=== PATIENT | male | born 1965 | race Hispanic/Latino ===

== ENCOUNTER 2017-07-08 01:25 | Emergency (ER) | payer OTHER, MEDICAID ==
[2017-07-08] MEDS ORDERED: MAG HYDROX/AL HYDROX/SIMETH ES 30 ML SUSP UDCUP ONE (02:01)
[2017-07-08] MEDS ORDERED: LIDOCAINE HCL 2% VISCOUS 15 ML UDCUP ONE (02:01)
[2017-07-08] MEDS ORDERED: ONDANSETRON HCL 4 MG/2 ML VIAL ONE (02:02)
[2017-07-08] MEDS ORDERED: ASPIRIN 325 MG TABLET ONE (02:02)
[2017-07-08] MEDS ORDERED: ACETAMINOPHEN-CODEINE ELIXIR 5 ML UDCUP ONE (02:02)
[2017-07-08 02:25] LABS: BASOPHILS % (AUTO) 0.9 % (0.0-5.0); EOSINOPHILS % (AUTO) 6.7 % (0.0-8.0); LYMPHOCYTES % (AUTO) 20.1 % (21.0-51.0); MEAN CORPUSCULAR HEMOGLOBIN 30.5 pg (27.0-33.0); MEAN CORPUSCULAR HGB CONC 34.4 g/dL (32.0-36.0); MEAN CORPUSCULAR VOLUME 88.6 fL (79-99); MONOCYTES % (AUTO) 7.4 % (3.0-13.0); NEUTROPHILS % (AUTO) 64.9 % (40.0-77.0); PLATELET COUNT (AUTO) 269 K/uL (130-400); RED BLOOD CELL COUNT(AUTO) 5.42 MIL/uL (4.50-6.20); RED CELL DISTRIBUTION WIDTH 13.7 % (11.0-15.5); WHITE BLOOD COUNT (AUTO) 8.5 K/uL (4.8-10.8)
[2017-07-08 02:44] LABS: CREATININE 1.1 mg/dL (0.5-1.5); POTASSIUM 3.7 mmol/L (3.5-5.1)
[2017-07-08 02:48] LABS: ALBUMIN 3.1 g/dL (3.5-5.0); BILIRUBIN,TOTAL 0.5 mg/dL (0.2-1.0); TOTAL PROTEIN, SERUM 6.8 g/dL (6.0-8.3)
== END 2017-07-08 03:06 | disposition home or self-care (01) ==
LOC: EDH 01:25
DX: K58.9 Irritable bowel syndrome, unspecified (principal); G89.29 Other chronic pain; R10.9 Unspecified abdominal pain; E78.5 Hyperlipidemia, unspecified; F43.10 Post-traumatic stress disorder, unspecified
CPT/HCPCS: 36415; 80053; 83690; 84484; 85025; 99284; J2405

== ENCOUNTER 2017-07-09 19:18 | Inpatient (IN) | payer MEDICAID, OTHER ==
[~2017-07-09] VITALS: Ht 172.7 cm; Wt 104.3 kg
[2017-07-09] MEDS ORDERED: ONDANSETRON HCL 4 MG/2 ML VIAL ONE (19:41)
[2017-07-09] MEDS ORDERED: SODIUM CHLORIDE 0.9% 1000ML 1,000 ML IV ONE (19:41)
[2017-07-09] MEDS ORDERED: MORPHINE SULFATE 8 MG/ML VIAL ONE ×2 (19:42→23:32)
[2017-07-09 19:50] LABS: BASOPHILS % (AUTO) 0.8 % (0.0-5.0); EOSINOPHILS % (AUTO) 3.2 % (0.0-8.0); HEMATOCRIT 46.3 % (42-54); LYMPHOCYTES % (AUTO) 14.2 % (21.0-51.0); MEAN CORPUSCULAR HEMOGLOBIN 30.8 pg (27.0-33.0); MEAN CORPUSCULAR HGB CONC 34.3 g/dL (32.0-36.0); MEAN CORPUSCULAR VOLUME 89.6 fL (79-99); MONOCYTES % (AUTO) 8.1 % (3.0-13.0); NEUTROPHILS % (AUTO) 73.7 % (40.0-77.0); PLATELET COUNT (AUTO) 250 K/uL (130-400); RED BLOOD CELL COUNT(AUTO) 5.17 MIL/uL (4.50-6.20); RED CELL DISTRIBUTION WIDTH 13.2 % (11.0-15.5); WHITE BLOOD COUNT (AUTO) 7.5 K/uL (4.8-10.8)
[2017-07-09 19:51] LABS: BILIRUBIN,URINE Negative (NEGATIVE); COLOR,URINE Yellow (YELLOW); GLUCOSE, URINE (UA) Negative (NEGATIVE); KETONES,URINE Negative (NEGATIVE); LEUKOCYTE ESTERASE ,URINE Negative (NEGATIVE); NITRATE,URINE Negative (NEGATIVE); OCCULT BLOOD,URINE Negative (NEGATIVE); PH,URINE 7.5 (5.0-8.0); PROTEIN,URINE Negative (NEGATIVE)
[2017-07-09 19:52] LABS: APPEARANCE,URINE CLEAR (CLEAR)
[2017-07-09 20:13] LABS: ALBUMIN 3.1 g/dL (3.5-5.0); BILIRUBIN,TOTAL 0.4 mg/dL (0.2-1.0); TOTAL PROTEIN, SERUM 6.7 g/dL (6.0-8.3)
[2017-07-09] MEDS ORDERED: IOPAMIDOL-370 75 ML VIAL IV ONE ×2 (22:50→22:57)
[2017-07-10] MEDS ORDERED: CEFTRIAXONE SODIUM 1 GM ONE (00:39)
[2017-07-10 01:15] VITALS: BP 138/83
[2017-07-10] MEDS ORDERED: SODIUM CHLORIDE 0.9% 1000ML 1,000 ML IV ONE (01:33)
[2017-07-10] MEDS: MORPHINE SULFATE 2 MG/ML 1ML SYG IVP PRN ×4 (01:36→22:58)
[2017-07-10 04:00] VITALS: BP_SYST 109; BP_SYST 134; BP_DIAS 53; BP_DIAS 75
[2017-07-10 04:56] LABS: BASOPHILS % (AUTO) 1.1 % (0.0-5.0); EOSINOPHILS % (AUTO) 4.1 % (0.0-8.0); HEMATOCRIT 43.4 % (42-54); LYMPHOCYTES % (AUTO) 18.9 % (21.0-51.0); MEAN CORPUSCULAR HEMOGLOBIN 30.8 pg (27.0-33.0); MEAN CORPUSCULAR HGB CONC 34.1 g/dL (32.0-36.0); MEAN CORPUSCULAR VOLUME 90.4 fL (79-99); MONOCYTES % (AUTO) 9.1 % (3.0-13.0); NEUTROPHILS % (AUTO) 66.8 % (40.0-77.0); PLATELET COUNT (AUTO) 228 K/uL (130-400); RED CELL DISTRIBUTION WIDTH 13.7 % (11.0-15.5); WHITE BLOOD COUNT (AUTO) 6.6 K/uL (4.8-10.8)
[2017-07-10 05:03] LABS: CREATININE 0.9 mg/dL (0.5-1.5); POTASSIUM 4.1 mmol/L (3.5-5.1)
[2017-07-10] MEDS ORDERED: MORPHINE SULFATE 4 MG/1ML SYG IV PRN (07:30)
[2017-07-10 07:35] VITALS: BP 135/80
[2017-07-10] MEDS: FAMOTIDINE/PF 20 MG/2 ML VIAL IV SCH ×2 (08:23→19:34)
[2017-07-10] MEDS: LEVOFLOXACIN 500 MG/D5W 100 ML 100 ML IV SCH (08:25)
[2017-07-10] MEDS: SODIUM CHLORIDE 0.9% 1000ML 1,000 ML IV SCH ×2 (08:25→17:18)
[2017-07-10] MEDS: ENOXAPARIN SODIUM 40 MG/0.4 ML SYRINGE SQ SCH (08:25)
[2017-07-10 11:21] VITALS: BP 123/81
[2017-07-10] MEDS ORDERED: LEVO500T2 PO (14:07)
[2017-07-10] MEDS: ACETAMINOPHEN-CODEINE 300/30MG TAB PO PRN (15:30)
[2017-07-10] MEDS ORDERED: ONDANSETRON HCL 4 MG/2 ML VIAL ONE (16:45)
[2017-07-10] MEDS ORDERED: ONDANSETRON HCL 4 MG/2 ML VIAL IVP PRN (18:30)
[2017-07-10] MEDS ORDERED: ONDANSETRON HCL 4 MG/2 ML VIAL IVP ONE (19:00)
[2017-07-10 19:40] VITALS: BP 127/77
[2017-07-10] MEDS: CEFTRIAXONE SODIUM 1 GM IVP SCH (22:57)
[2017-07-10 23:30] VITALS: BP 140/86
[2017-07-11 04:00] VITALS: BP 122/88
[2017-07-11] MEDS: SODIUM CHLORIDE 0.9% 1000ML 1,000 ML IV SCH ×3 (04:43→22:48)
[2017-07-11 07:00] VITALS: BP 142/87
[2017-07-11] MEDS: LEVOFLOXACIN 500 MG/D5W 100 ML 100 ML IV SCH (07:30)
[2017-07-11] MEDS: ENOXAPARIN SODIUM 40 MG/0.4 ML SYRINGE SQ SCH (09:00)
[2017-07-11] MEDS: FAMOTIDINE/PF 20 MG/2 ML VIAL IV SCH ×2 (09:00→20:46)
[2017-07-11 10:50] VITALS: BP 132/81
[2017-07-11 12:19] LABS: HEMATOCRIT 45.9 % (42-54); MEAN CORPUSCULAR HEMOGLOBIN 30.9 pg (27.0-33.0); MEAN CORPUSCULAR HGB CONC 34.4 g/dL (32.0-36.0); MEAN CORPUSCULAR VOLUME 89.9 fL (79-99); PLATELET COUNT (AUTO) 227 K/uL (130-400); RED CELL DISTRIBUTION WIDTH 13.2 % (11.0-15.5)
[2017-07-11 12:41] LABS: POTASSIUM 3.6 mmol/L (3.5-5.1)
[2017-07-11 14:56] LABS: ALBUMIN 2.9 g/dL (3.5-5.0); BILIRUBIN,DIRECT 0.1 mg/dL (0.0-0.3); BILIRUBIN,TOTAL 0.5 mg/dL (0.2-1.0); TOTAL PROTEIN, SERUM 6.5 g/dL (6.0-8.3)
[2017-07-11 15:22] VITALS: BP 146/94
[2017-07-11] MEDS: MORPHINE SULFATE 2 MG/ML 1ML SYG IVP PRN ×2 (18:55→22:48)
[2017-07-11 19:41] VITALS: BP 143/84
[2017-07-11] MEDS: CEFTRIAXONE SODIUM 1 GM IVP SCH (22:48)
[2017-07-12] VITALS (22 sets, daily range): BP systolic 105–138; BP diastolic 64–92
[2017-07-12 05:33] LABS: BASOPHILS % (AUTO) 1.2 % (0.0-5.0); HEMATOCRIT 43.9 % (42-54); MEAN CORPUSCULAR HEMOGLOBIN 30.8 pg (27.0-33.0); MEAN CORPUSCULAR HGB CONC 34.5 g/dL (32.0-36.0); MEAN CORPUSCULAR VOLUME 89.2 fL (79-99); MONOCYTES % (AUTO) 11.2 % (3.0-13.0); NEUTROPHILS % (AUTO) 51.6 % (40.0-77.0); NUCLEATED RED BLOOD CELLS 0.1 % (0.0-0.19); PLATELET COUNT (AUTO) 228 K/uL (130-400); RED BLOOD CELL COUNT(AUTO) 4.92 MIL/uL (4.50-6.20); RED CELL DISTRIBUTION WIDTH 13.4 % (11.0-15.5); WHITE BLOOD COUNT (AUTO) 5.1 K/uL (4.8-10.8)
[2017-07-12] MEDS: MORPHINE SULFATE 2 MG/ML 1ML SYG IVP PRN ×2 (06:01→21:20)
[2017-07-12] MEDS: LEVOFLOXACIN 500 MG/D5W 100 ML 100 ML IV SCH (06:01)
[2017-07-12 06:03] LABS: ALBUMIN 2.7 g/dL (3.5-5.0); BILIRUBIN,TOTAL 0.5 mg/dL (0.2-1.0); POTASSIUM 3.6 mmol/L (3.5-5.1); TOTAL PROTEIN, SERUM 6.2 g/dL (6.0-8.3)
[2017-07-12] MEDS: FAMOTIDINE/PF 20 MG/2 ML VIAL IV SCH ×2 (08:41→19:44)
[2017-07-12] MEDS: ENOXAPARIN SODIUM 40 MG/0.4 ML SYRINGE SQ SCH (08:42)
[2017-07-12] MEDS ORDERED: ONDANSETRON HCL 4 MG/2 ML VIAL ONE (08:59)
[2017-07-12] MEDS ORDERED: DEXAMETHASONE SOD PHOSPHATE 10MG/ML 1ML VIAL ONE ×2 (08:59→13:07)
[2017-07-12] MEDS ORDERED: GLYCOPYRROLATE 0.2 MG/ML 5 ML VIAL ONE ×2 (09:00→13:08)
[2017-07-12] MEDS ORDERED: SUCCINYLCHOLINE 200MG/10ML SYR ONE ×2 (09:00→13:07)
[2017-07-12] MEDS ORDERED: LIDOCAINE PF 2% 5ML ABBOJECT ONE (09:00)
[2017-07-12] MEDS ORDERED: MIDAZOLAM HCL 1 MG/ML 2ML VIAL ONE (09:32)
[2017-07-12] MEDS ORDERED: PROPOFOL 10 MG/ML 20ML VIAL IV ONE (09:33)
[2017-07-12] MEDS ORDERED: FENTANYL CITRATE PF 50 MCG/1 ML 2ML VIAL ONE ×2 (09:33→12:51)
[2017-07-12] MEDS ORDERED: HEPARIN SODIUM 1000UNIT/ML 10ML VIAL ONE (11:10)
[2017-07-12] MEDS ORDERED: ROCURONIUM BROMIDE 10MG/1ML 5ML VL ONE (13:06)
[2017-07-12] MEDS ORDERED: METOCLOPRAMIDE 10 MG/2 ML VIAL ONE (13:07)
[2017-07-12] MEDS ORDERED: PHENYLEPHRINE HCL 10 MG/ML 1ML VIAL IV ONE (13:08)
[2017-07-12] MEDS ORDERED: LIDOCAINE HCL 2% JELLY 5 ML ONE (13:08)
[2017-07-12] MEDS ORDERED: ROPIVACAINE 0.5% 5MG/ML 30ML IJ ONE (13:08)
[2017-07-12] MEDS ORDERED: ESMOLOL HCL 10 MG/ML 10 ML VIAL ONE (13:10)
[2017-07-12] MEDS ORDERED: CALDOLOR 800MG+NS 250ML 250 ML IV ONE (13:26)
[2017-07-12] MEDS ORDERED: SODIUM CHLORIDE 0.9% 1000ML 1,000 ML IV SCH (13:44)
[2017-07-12] MEDS ORDERED: MEPERIDINE-PF 50 MG/ML SYG ONE (14:13)
[2017-07-13] MEDS: CEFTRIAXONE SODIUM 1 GM IVP SCH (00:35)
[2017-07-13 00:47] VITALS: BP 140/88
[2017-07-13 04:19] VITALS: BP 109/72
[2017-07-13] MEDS: LEVOFLOXACIN 500 MG/D5W 100 ML 100 ML IV SCH (05:39)
[2017-07-13] MEDS: ACETAMINOPHEN-CODEINE 300/30MG TAB PO PRN (05:40)
[2017-07-13 08:08] VITALS: BP 134/91
[2017-07-13] MEDS: FAMOTIDINE/PF 20 MG/2 ML VIAL IV SCH (09:06)
[2017-07-13] MEDS: ENOXAPARIN SODIUM 40 MG/0.4 ML SYRINGE SQ SCH (09:08)
[2017-07-13 11:39] VITALS: BP 117/80
== END 2017-07-13 14:20 | disposition home or self-care (01) | DRG 419 ==
LOC: EDH 19:18 → INTOOBSV 07-10 00:29 → 4AH 07-10 00:29 → OBSVTOIN 07-10 00:29
PROVIDERS: ADMIT Family Medicine; ATTEND Family Medicine
PROC: 0FT44ZZ Resection of Gallbladder, Percutaneous Endoscopic Approach (ICD-10-PCS; principal; 2017-07-12 12:40)
DX: K80.62 Calculus of gallbladder and bile duct with acute cholecystitis without obstruction (principal); E66.9 Obesity, unspecified; Z68.35 Body mass index [BMI] 35.0-35.9, adult; E78.5 Hyperlipidemia, unspecified; F43.10 Post-traumatic stress disorder, unspecified
CPT/HCPCS: 36415; 74177; 76705; 80048; 80053; 80076; 81003; 82150; 82550; 83690; 84484; 85025; 85027; 88304; 93005; A4218; J0330; J0696; J1100; J1644; J1650; J1741; J1956; J2001; J2175; J2250; J2270; J2370; J2405; J2704; J2765; J2795; J3010; J3490; J7030; Q9967

== ENCOUNTER 2017-10-18 21:19 | Emergency (ER) | payer MEDICAID, OTHER ==
[~2017-10-18 21:19] MED LIST: LEVO500T2 PO
[2017-10-18] MEDS ORDERED: ASPIRIN 325 MG TABLET ONE (21:28)
[2017-10-18 21:40] LABS: BASOPHILS % (AUTO) 0.9 % (0.0-5.0); EOSINOPHILS % (AUTO) 6.2 % (0.0-8.0); HEMATOCRIT 46.2 % (42-54); MEAN CORPUSCULAR HEMOGLOBIN 31.4 pg (27.0-33.0); MEAN CORPUSCULAR HGB CONC 34.7 g/dL (32.0-36.0); MEAN CORPUSCULAR VOLUME 90.7 fL (79-99); MONOCYTES % (AUTO) 9.4 % (3.0-13.0); NEUTROPHILS % (AUTO) 53.5 % (40.0-77.0); PLATELET COUNT (AUTO) 201 K/uL (130-400); RED BLOOD CELL COUNT(AUTO) 5.09 MIL/uL (4.50-6.20); RED CELL DISTRIBUTION WIDTH 14.1 % (11.0-15.5); WHITE BLOOD COUNT (AUTO) 6.4 K/uL (4.8-10.8)
[2017-10-18 21:51] LABS: INR 0.89 (0.85-1.15); PARTIAL THROMBOPLASTIN TIME 28.9 SEC (26.3-35.5); PROTHROMBIN TIME 9.4 SEC (9.6-11.6)
[2017-10-18 21:52] LABS: CREATININE 1.1 mg/dL (0.5-1.5); POTASSIUM 3.7 mmol/L (3.5-5.1)
[2017-10-18 22:10] LABS: BILIRUBIN,TOTAL 0.3 mg/dL (0.2-1.0); TOTAL PROTEIN, SERUM 6.3 g/dL (6.0-8.3)
[2017-10-18 22:28] LABS: AMPHET/METH SCREEN,URINE NEGATIVE (NEGATIVE); BARBITURATE SCREEN, URINE NEGATIVE (NEGATIVE); BENZODIAZEPINES SCREEN,URINE NEGATIVE (NEGATIVE); CANNABINOID SCREEN,URINE NEGATIVE (NEGATIVE); COCAINE SCREEN,URINE NEGATIVE (NEGATIVE); OPIATE SCREEN,URINE NEGATIVE (NEGATIVE); PHENCYCLIDINE SCREEN,URINE NEGATIVE (NEGATIVE)
== END 2017-10-19 00:39 | disposition home or self-care (01) ==
LOC: EDH 21:19
DX: R07.9 Chest pain, unspecified (principal); E78.5 Hyperlipidemia, unspecified; F43.10 Post-traumatic stress disorder, unspecified; Z90.49 Acquired absence of other specified parts of digestive tract; Z87.891 Personal history of nicotine dependence
CPT/HCPCS: 36415; 71045; 80053; 80305; 82550; 82553; 83874; 84484; 85025; 85610; 85730; 93005; 94761

== ENCOUNTER 2018-04-25 20:20 | Emergency (ER) | payer OTHER ==
[2018-04-25] MEDS ORDERED: ASPIRIN 325 MG TABLET ONE (20:34)
[2018-04-25] MEDS ORDERED: LORAZEPAM 2 MG/ML 1 ML VIAL ONE (20:37)
[2018-04-25 20:45] LABS: BASOPHILS % (AUTO) 1.1 % (0.0-5.0); HEMATOCRIT 48.6 % (42-54); LYMPHOCYTES % (AUTO) 27.7 % (21.0-51.0); MEAN CORPUSCULAR HEMOGLOBIN 30.7 pg (27.0-33.0); MEAN CORPUSCULAR HGB CONC 33.7 g/dL (32.0-36.0); MEAN CORPUSCULAR VOLUME 91.1 fL (79-99); NEUTROPHILS % (AUTO) 57.2 % (40.0-77.0); NUCLEATED RED BLOOD CELLS 0.2 % (0.0-0.19); PLATELET COUNT (AUTO) 167 K/uL (130-400); RED BLOOD CELL COUNT(AUTO) 5.33 MIL/uL (4.50-6.20); RED CELL DISTRIBUTION WIDTH 13.2 % (11.0-15.5); WHITE BLOOD COUNT (AUTO) 6.8 K/uL (4.8-10.8)
[2018-04-25 20:53] LABS: CREATININE 1.3 mg/dL (0.5-1.5); INR 0.91 (0.85-1.15); PARTIAL THROMBOPLASTIN TIME 29.5 SEC (26.3-35.5); POTASSIUM 3.8 mmol/L (3.5-5.1); PROTHROMBIN TIME 9.6 SEC (9.6-11.6)
[2018-04-25 21:02] LABS: ALBUMIN 2.9 g/dL (3.5-5.0); BILIRUBIN,TOTAL 0.3 mg/dL (0.2-1.0)
== END 2018-04-26 00:24 | disposition home or self-care (01) ==
LOC: EDH 20:22
DX: F41.1 Generalized anxiety disorder (principal); R07.89 Other chest pain; E78.5 Hyperlipidemia, unspecified; F43.10 Post-traumatic stress disorder, unspecified; Z90.49 Acquired absence of other specified parts of digestive tract
CPT/HCPCS: 36415; 71045; 80053; 82550; 83874; 84484 ×2; 85025; 85610; 85730; 93005 ×2; 94761; 96374; 99284; J2060

== ENCOUNTER 2018-08-23 19:57 | Emergency (ER) | payer OTHER ==
[2018-08-23 20:13] LABS: APPEARANCE,URINE Clear (CLEAR); BILIRUBIN,URINE Negative (NEGATIVE); COLOR,URINE Yellow (YELLOW); GLUCOSE, URINE (UA) Negative (NEGATIVE); KETONES,URINE Negative (NEGATIVE); LEUKOCYTE ESTERASE ,URINE Negative (NEGATIVE); NITRATE,URINE Negative (NEGATIVE); OCCULT BLOOD,URINE Negative (NEGATIVE); PROTEIN,URINE Negative (NEGATIVE)
[2018-08-23 20:28] LABS: BASOPHILS % (AUTO) 1.1 % (0.0-5.0); EOSINOPHILS % (AUTO) 5.9 % (0.0-8.0); HEMATOCRIT 47.1 % (42-54); LYMPHOCYTES % (AUTO) 23.9 % (21.0-51.0); MEAN CORPUSCULAR HGB CONC 34.2 g/dL (32.0-36.0); MEAN CORPUSCULAR VOLUME 90.6 fL (79-99); MONOCYTES % (AUTO) 9.3 % (3.0-13.0); NEUTROPHILS % (AUTO) 59.8 % (40.0-77.0); NUCLEATED RED BLOOD CELLS 0.1 % (0.0-0.19); PLATELET COUNT (AUTO) 177 K/uL (130-400); RED CELL DISTRIBUTION WIDTH 14.1 % (11.0-15.5); WHITE BLOOD COUNT (AUTO) 5.7 K/uL (4.8-10.8)
[2018-08-23] MEDS ORDERED: ASPIRIN 325 MG TABLET ONE (20:31)
[2018-08-23] MEDS ORDERED: NITROGLYCERIN 1GM/1 INCH PACKET TD ONE (20:32)
[2018-08-23 20:42] LABS: CREATININE 1.1 mg/dL (0.5-1.5); POTASSIUM 4.1 mmol/L (3.5-5.1)
[2018-08-23 20:45] LABS: INR 0.91 (0.85-1.15); PARTIAL THROMBOPLASTIN TIME 31.5 SEC (26.3-35.5); PROTHROMBIN TIME 9.6 SEC (9.6-11.6)
[2018-08-23 20:53] LABS: ALBUMIN 3.3 g/dL (3.5-5.0); BILIRUBIN,TOTAL 0.4 mg/dL (0.2-1.0); TOTAL PROTEIN, SERUM 6.4 g/dL (6.0-8.3)
[2018-08-23] MEDS ORDERED: OSELTAMIVIR PHOSPHATE 75 MG CAP ONE (21:58)
== END 2018-08-23 23:16 | disposition home or self-care (01) ==
LOC: EDH 19:57
DX: J11.1 Influenza due to unidentified influenza virus with other respiratory manifestations (principal); R07.89 Other chest pain; E78.5 Hyperlipidemia, unspecified; I10 Essential (primary) hypertension; F43.10 Post-traumatic stress disorder, unspecified; Z90.49 Acquired absence of other specified parts of digestive tract
CPT/HCPCS: 36415; 71045; 80053; 81003; 82550; 83874; 84484; 85025; 85610; 85730; 87804; 93005

== ENCOUNTER → 2018-10-01 | Outpatient (CLI) | payer MEDICAID ==
[~2018-10-01] VITALS: Ht 172.7 cm; Wt 101.2 kg
[~2018-10-01] MED LIST changes: +REGADENOSON 0.4 MG/5 ML PF SYG IVP SCH
== END | disposition home or self-care (01) ==
LOC: SHCH 08:14
PROVIDERS: ATTEND Internal Medicine Cardiovascular Disease
DX: I10 Essential (primary) hypertension (principal); M25.511 Pain in right shoulder
CPT/HCPCS: 78452; 93017; 96374; A9500 ×2; J2785

== ENCOUNTER → 2018-10-28 | Outpatient (CLI) | payer MEDICAID ==
[~2018-10-28] MED LIST changes: +ASPI-555 PO; +ATOR10TA69 PO; +CLOP75TA32 PO; +ISOS30TA6 PO; +NITR0.4T50 SL; -REGADENOSON 0.4 MG/5 ML PF SYG IVP SCH; +TAMS-1 PO
== END | disposition home or self-care (01) ==
LOC: SHCH 14:35
PROVIDERS: ATTEND Internal Medicine Cardiovascular Disease
DX: I10 Essential (primary) hypertension (principal)
CPT/HCPCS: 93306

== ENCOUNTER 2018-11-27 14:20 | Inpatient (IN) | payer MEDICAID ==
[~2018-11-27] VITALS: Ht 172.7 cm; Wt 101.9 kg
[~2018-11-27 14:20] MED LIST changes: -ASPI-555 PO; -ATOR10TA69 PO; -CLOP75TA32 PO; -ISOS30TA6 PO; -NITR0.4T50 SL; -TAMS-1 PO
[2018-11-27 14:45] LABS: BASOPHILS % (AUTO) 1.1 % (0.0-5.0); EOSINOPHILS % (AUTO) 4.4 % (0.0-8.0); HEMATOCRIT 47.1 % (42-54); LYMPHOCYTES % (AUTO) 22.7 % (21.0-51.0); MEAN CORPUSCULAR HEMOGLOBIN 32.1 pg (27.0-33.0); MEAN CORPUSCULAR VOLUME 91.8 fL (79-99); MONOCYTES % (AUTO) 10.7 % (3.0-13.0); NEUTROPHILS % (AUTO) 61.1 % (40.0-77.0); NUCLEATED RED BLOOD CELLS 0.1 % (0.0-0.19); PLATELET COUNT (AUTO) 180 K/uL (130-400); RED BLOOD CELL COUNT(AUTO) 5.13 MIL/uL (4.50-6.20); RED CELL DISTRIBUTION WIDTH 13.7 % (11.0-15.5); WHITE BLOOD COUNT (AUTO) 6.3 K/uL (4.8-10.8)
[2018-11-27 14:59] LABS: CREATININE 0.9 mg/dL (0.5-1.5); POTASSIUM 3.8 mmol/L (3.5-5.1)
[2018-11-27] MEDS ORDERED: SODIUM CHLORIDE 0.9% 500ML 500 ML IV ONE (14:59)
[2018-11-27] MEDS ORDERED: ASPIRIN 325 MG TABLET ONE (14:59)
[2018-11-27] MEDS ORDERED: NITROGLYCERIN 0.4 MG SL TAB SL ONE (14:59)
[2018-11-27 15:00] LABS: INR 0.92 (0.85-1.15); PROTHROMBIN TIME 9.7 SEC (9.6-11.6)
[2018-11-27 15:11] LABS: ALBUMIN 3.5 g/dL (3.5-5.0); BILIRUBIN,TOTAL 0.5 mg/dL (0.2-1.0); TOTAL PROTEIN, SERUM 7.1 g/dL (6.0-8.3)
[2018-11-27 16:17] LABS: APPEARANCE,URINE CLEAR (CLEAR); BILIRUBIN,URINE NEGATIVE (NEGATIVE); COLOR,URINE YELLOW (YELLOW); GLUCOSE, URINE (UA) NEGATIVE (NEGATIVE); KETONES,URINE NEGATIVE (NEGATIVE); LEUKOCYTE ESTERASE ,URINE NEGATIVE (NEGATIVE); NITRATE,URINE NEGATIVE (NEGATIVE); OCCULT BLOOD,URINE NEGATIVE (NEGATIVE); PROTEIN,URINE NEGATIVE (NEGATIVE); UROBILINOGEN,URINE 0.2 mg/dL (0.2-1.0)
[2018-11-27] MEDS ORDERED: GLUCAGON 1MG KIT 1 MG ML IM PRN (16:30)
[2018-11-27] MEDS ORDERED: ONDANSETRON HCL 4 MG/2 ML VIAL IVP PRN (16:30)
[2018-11-27] MEDS ORDERED: MORPHINE SULFATE 2 MG/ML 1ML SYG IVP PRN (16:30)
[2018-11-27] MEDS ORDERED: ACETAMINOPHEN 325 MG TAB PO PRN (16:30)
[2018-11-27] MEDS: INSULIN R PO SS1 SQ SCH ×2 (16:30→20:37)
[2018-11-27] MEDS: SODIUM CHLORIDE 0.9% 1000ML 1,000 ML IV SCH ×2 (16:30→20:39)
[2018-11-27] MEDS ORDERED: DEXTROSE 50%-WATER 50 ML DISP.SYRIN IV PRN (16:30)
[2018-11-27] MEDS ORDERED: MORPHINE SULFATE 2 MG/ML 1ML SYG ONE (16:40)
[2018-11-27] MEDS ORDERED: ISOSORBIDE MONO 30MG TAB SR PO SCH (17:15)
[2018-11-27 17:40] VITALS: BP 133/83
[2018-11-27] MEDS ORDERED: NITR0.4T50 SL (18:14)
[2018-11-27] MEDS ORDERED: TAMS-1 PO (18:14)
[2018-11-27] MEDS ORDERED: ATOR10TA69 PO (18:14)
[2018-11-27] MEDS ORDERED: LABETALOL 20 MG/4 ML DISP.SYRIN IV PRN (18:15)
[2018-11-27 18:24] LABS: CREATINE KINASE, TOTAL 101 U/L (21-232); MYOGLOBIN 60 ng/mL (10-92); TROPONIN I < 0.04 ng/mL (0.00-0.06)
[2018-11-27 19:15] VITALS: BP 124/81
[2018-11-27] MEDS: METOPROLOL TARTRATE 25 MG TAB PO SCH (20:37)
[2018-11-27] MEDS: ATORVASTATIN CALCIUM 40 MG TABLET PO SCH (20:37)
[2018-11-27] MEDS ORDERED: FAMOTIDINE 20MG TAB 20 MG TAB PO SCH (21:00)
[2018-11-27 21:05] LABS: CREATINE KINASE, TOTAL 97 U/L (21-232); MYOGLOBIN 53 ng/mL (10-92)
[2018-11-27 23:00] VITALS: BP 115/74
[2018-11-28 02:20] LABS: HEMATOCRIT 44.6 % (42-54); MEAN CORPUSCULAR HEMOGLOBIN 31.4 pg (27.0-33.0); MEAN CORPUSCULAR VOLUME 92.5 fL (79-99); NUCLEATED RED BLOOD CELLS 0.1 % (0.0-0.19); PLATELET COUNT (AUTO) 165 K/uL (130-400); RED BLOOD CELL COUNT(AUTO) 4.83 MIL/uL (4.50-6.20); RED CELL DISTRIBUTION WIDTH 13.5 % (11.0-15.5); WHITE BLOOD COUNT (AUTO) 5.2 K/uL (4.8-10.8)
[2018-11-28 02:36] LABS: POTASSIUM 4.2 mmol/L (3.5-5.1)
[2018-11-28 03:10] VITALS: BP 113/74
[2018-11-28] MEDS: INSULIN R PO SS1 SQ SCH (05:35)
[2018-11-28 07:00] VITALS: BP 138/91
[2018-11-28] MEDS ORDERED: SODIUM CHLORIDE 0.9% 500ML 500 ML IV SCH (07:28)
[2018-11-28] MEDS: ISOSORBIDE MONO 30MG TAB SR PO SCH (08:52)
[2018-11-28] MEDS: METOPROLOL TARTRATE 25 MG TAB PO SCH ×2 (08:52→19:30)
[2018-11-28] MEDS: ASPIRIN 81 MG EC TAB PO SCH (08:52)
[2018-11-28] MEDS ORDERED: PANTOPRAZOLE 40 MG/VIAL IVP SCH (09:00)
[2018-11-28] MEDS ORDERED: ENOXAPARIN SODIUM 40 MG/0.4 ML SYRINGE SQ SCH (09:00)
[2018-11-28 11:00] VITALS: BP 114/80
[2018-11-28 16:00] VITALS: BP 111/66
--- NOTE | 2018-11-28 16:19 | NUR ---
cm note pt resides at home with spouse, independent with adls and ambulation. no dme. dc plan is back tohome at dc. no dc needs. Addendum: 11/28/18 at 1620 by RUFUS AMADO CM Amended: Links added.
[2018-11-28 19:10] VITALS: BP 110/59
[2018-11-28] MEDS: ATORVASTATIN CALCIUM 40 MG TABLET PO SCH (19:30)
[2018-11-28] MEDS: HYDROCODONE/ACETAMINOPHEN 5/325 MG TAB PO PRN (19:31)
[2018-11-28 23:20] VITALS: BP 117/67
[2018-11-29 03:14] VITALS: BP 105/64
[2018-11-29] MEDS: METOPROLOL TARTRATE 25 MG TAB PO SCH ×2 (06:39→20:46)
[2018-11-29] MEDS: HYDROCODONE/ACETAMINOPHEN 5/325 MG TAB PO PRN ×2 (06:49→16:25)
[2018-11-29 07:02] LABS: INR 0.94 (0.85-1.15); PARTIAL THROMBOPLASTIN TIME 32.9 SEC (26.3-35.5); PROTHROMBIN TIME 9.9 SEC (9.6-11.6)
[2018-11-29 07:30] VITALS: BP 109/73
--- NOTE | 2018-11-29 07:45 | NUR ---
SILVIA NARANJO PA FOR [facility] DR. GAR HERE TO SEE PATIENT. PATIENT REPORTED TO SILVIA NARANJO THAT HE HAS BEEN HAVING "SEVERE HEADACHES FOR A WEEK." SILVIA NARANJO PLACED ORDERS IMAGING STUDIES.
[2018-11-29] MEDS: ISOSORBIDE MONO 30MG TAB SR PO SCH (09:00)
--- NOTE | 2018-11-29 09:15 | NUR ---
SILVIA NARANJO RECEIVED TELEPHONE CALL FROM SILVIA NARANJO THAT CT HEAD/BRAIN IMAGING TEST SHOULD BE WITH IV CONTRAST. PATIENT ALREADY RETURNED TO FLOOR, ORDERS PLACED FOR CT HEAD/BRAIN WITH IV CONTRAST. SILVIA NARANJO ALSO STATED FOR PLANNED HEART CATH WILL BE POSSIBLE RESCHEDULED FOR TOMORROW 11/30/18 AT 0730 AND TO CALL HIM TO CT BRAIN/HEAD RESULTS.
[2018-11-29] MEDS: SODIUM CHLORIDE 0.9% 1000ML 1,000 ML IV SCH (09:42)
[2018-11-29 11:00] VITALS: BP 104/67
[2018-11-29] MEDS ORDERED: IOHEXOL-350 50ML VIAL IV ONE (11:09)
--- NOTE | 2018-11-29 13:55 | NUR ---
SILVIA NARANJO INFORMED SILVIA NARANJO OF CT BRAIN/HEAD RESULTS WITH/WITHOUT CONTRAST. SILVIA NARANJO REPLIED TO RESCHEDULED HEART CATH FOR TOMORROW 11/30/18 AT 0730.
[2018-11-29] MEDS: PANTOPRAZOLE SODIUM 40 MG TABLET.DR PO SCH (14:11)
[2018-11-29] MEDS: ASPIRIN 81 MG EC TAB PO SCH (14:11)
[2018-11-29 16:00] VITALS: BP 105/65
[2018-11-29 19:57] VITALS: BP 133/82
[2018-11-29] MEDS: ATORVASTATIN CALCIUM 40 MG TABLET PO SCH (20:46)
[2018-11-30] VITALS (16 sets, daily range): BP systolic 93–141; BP diastolic 53–88
[2018-11-30 04:07] LABS: BASOPHILS % (AUTO) 1.2 % (0.0-5.0); EOSINOPHILS % (AUTO) 6.8 % (0.0-8.0); HEMATOCRIT 45.8 % (42-54); MEAN CORPUSCULAR HEMOGLOBIN 31.3 pg (27.0-33.0); MEAN CORPUSCULAR HGB CONC 33.9 g/dL (32.0-36.0); MEAN CORPUSCULAR VOLUME 92.3 fL (79-99); MONOCYTES % (AUTO) 9.6 % (3.0-13.0); NEUTROPHILS % (AUTO) 54.4 % (40.0-77.0); NUCLEATED RED BLOOD CELLS 0.1 % (0.0-0.19); PLATELET COUNT (AUTO) 192 K/uL (130-400); RED BLOOD CELL COUNT(AUTO) 4.97 MIL/uL (4.50-6.20)
[2018-11-30 04:16] LABS: INR 0.95 (0.85-1.15); PARTIAL THROMBOPLASTIN TIME 34.1 SEC (26.3-35.5)
[2018-11-30 04:19] LABS: CREATININE 1.1 mg/dL (0.5-1.5); POTASSIUM 4.4 mmol/L (3.5-5.1)
[2018-11-30] MEDS: SODIUM CHLORIDE 0.9% 1000ML 1,000 ML IV SCH ×2 (05:12→20:33)
[2018-11-30] MEDS: PANTOPRAZOLE SODIUM 40 MG TABLET.DR PO SCH (05:12)
[2018-11-30] MEDS ORDERED: HEPARIN SODIUM 1000UNIT/ML 10ML VIAL ONE (07:11)
[2018-11-30] MEDS ORDERED: LIDOCAINE HCL 1% 20 ML VIAL ONE (07:11)
[2018-11-30] MEDS ORDERED: IOHEXOL-350 50ML VIAL IV ONE (07:12)
[2018-11-30] MEDS ORDERED: IOHEXOL 350 MG/ML 100ML INFUS..BTL IV ONE (07:12)
--- NOTE | 2018-11-30 07:15 | NUR ---
Bedside rounding, patient awake, alert, oriented x3. at bedside
--- NOTE | 2018-11-30 07:20 | NUR ---
Patient was taken down for Left heart cath before physical assessment
[2018-11-30] MEDS ORDERED: NITROGLYCERIN 4.1 GM SPRAY TL ONE (08:10)
[2018-11-30] MEDS ORDERED: CLOPIDOGREL BISULFATE 300 MG TAB ONE (08:27)
[2018-11-30] MEDS ORDERED: ASPIRIN 81MG TAB.CHEW ONE (08:27)
[2018-11-30] MEDS ORDERED: ONDANSETRON HCL 4 MG/2 ML VIAL IVP SCH (09:00)
[2018-11-30] MEDS: CLOPIDOGREL BISULFATE 75 MG TAB PO SCH (09:00)
[2018-11-30] MEDS ORDERED: MORPHINE SULFATE 5 MG/ML VIAL IVP SCH (09:00)
[2018-11-30] MEDS ORDERED: ACETAMINOPHEN 325 MG TAB PO PRN (09:00)
[2018-11-30] MEDS: METOPROLOL TARTRATE 25 MG TAB PO SCH ×2 (10:08→20:33)
[2018-11-30] MEDS: ISOSORBIDE MONO 30MG TAB SR PO SCH (10:08)
[2018-11-30] MEDS: ASPIRIN 81 MG EC TAB PO SCH (10:30)
[2018-11-30] MEDS: HYDROCODONE/ACETAMINOPHEN 5/325 MG TAB PO PRN ×3 (10:51→22:49)
[2018-11-30] MEDS ORDERED: ATROPINE SULFATE 0.1 MG/ML 10 ML SYG IVP ONE (14:54)
[2018-11-30] MEDS ORDERED: ATROPINE SULFATE 0.1 MG/ML 10 ML SYG IVP SCH (17:10)
[2018-11-30] MEDS: ATORVASTATIN CALCIUM 40 MG TABLET PO SCH (20:33)
[2018-12-01 03:44] VITALS: BP 95/55
[2018-12-01 04:14] LABS: HEMATOCRIT 41.9 % (42-54); MEAN CORPUSCULAR HEMOGLOBIN 32.4 pg (27.0-33.0); MEAN CORPUSCULAR HGB CONC 35.1 g/dL (32.0-36.0); MEAN CORPUSCULAR VOLUME 92.3 fL (79-99); NUCLEATED RED BLOOD CELLS 0.1 % (0.0-0.19); PLATELET COUNT (AUTO) 167 K/uL (130-400); RED BLOOD CELL COUNT(AUTO) 4.54 MIL/uL (4.50-6.20); WHITE BLOOD COUNT (AUTO) 6.9 K/uL (4.8-10.8)
[2018-12-01 04:19] LABS: CREATININE 1.1 mg/dL (0.5-1.5); POTASSIUM 4.3 mmol/L (3.5-5.1)
[2018-12-01] MEDS: PANTOPRAZOLE SODIUM 40 MG TABLET.DR PO SCH (06:30)
[2018-12-01 07:00] VITALS: BP 133/83
--- NOTE | 2018-12-01 07:10 | NUR ---
ASSESSMENT PT IS AAOX4 DENIES CP DENIES SOB DENIES NV NO COMPLAINTS. RIGHT GROIN DRESSING IN PLACE CLEAN DRY AND INTACT. AMBULATING IN HALLS.
[2018-12-01] MEDS: METOPROLOL TARTRATE 25 MG TAB PO SCH (07:36)
[2018-12-01] MEDS: CLOPIDOGREL BISULFATE 75 MG TAB PO SCH (07:36)
[2018-12-01] MEDS: ISOSORBIDE MONO 30MG TAB SR PO SCH (07:36)
[2018-12-01] MEDS: ASPIRIN 81 MG EC TAB PO SCH (07:36)
[2018-12-01 10:37] VITALS: BP 124/71
--- NOTE | 2018-12-01 13:01 | NUR ---
DC TO HOME PATIENT AND FAMILY VERBALIZE DC INSTRUCTIONS, AND UNDERSTANDING OF MEDICATIONS. AGREE TO FOLLOW UP WITH DR RIN العلي. ALL QUESTIONS ANSWERED, PIV REMOVED CATH TIP INTACT. DOWN VIA WC WITH FAMILY AND NURSE AIDE.
== END 2018-12-01 13:04 | disposition home or self-care (01) | DRG 175 ==
LOC: EDH 14:20 → OBSVTOIN 14:21 → 4BH 14:21 → 2AH 11-30 09:11
PROVIDERS: ADMIT Internal Medicine Critical Care Medicine; ATTEND Internal Medicine Critical Care Medicine
PROC: 4A023N7 Measurement of Cardiac Sampling and Pressure, Left Heart, Percutaneous Approach (ICD-10-PCS; principal; 2018-11-30)
PROC: 027034Z Dilation of Coronary Artery, One Artery with Drug-eluting Intraluminal Device, Percutaneous Approach (ICD-10-PCS; 2018-11-30)
PROC: B2151ZZ Fluoroscopy of Left Heart using Low Osmolar Contrast (ICD-10-PCS; 2018-11-30)
PROC: B2111ZZ Fluoroscopy of Multiple Coronary Arteries using Low Osmolar Contrast (ICD-10-PCS; 2018-11-30)
DX: I25.119 Atherosclerotic heart disease of native coronary artery with unspecified angina pectoris (principal); E78.5 Hyperlipidemia, unspecified; I10 Essential (primary) hypertension; Z87.891 Personal history of nicotine dependence; Z82.49 Family history of ischemic heart disease and other diseases of the circulatory system
CPT/HCPCS: 36415; 70450; 70460; 71045; 80048; 80053; 81003; 82550; 83874; 84484; 85025; 85027; 85610; 85730; 93005; 93458; C1769; C1887; C1894; C9113; C9600; G0378; J0461; J1644; J1650; J2405; J7030; J7040; Q9967

== ENCOUNTER 2019-01-02 10:17 | Observation (INO) | payer MEDICAID ==
[~2019-01-02] VITALS: Ht 172.7 cm; Wt 101.8 kg
[~2019-01-02 10:17] MED LIST changes: +ATOR10TA69 PO; -LEVO500T2 PO; +NITR0.4T50 SL; +TAMS-1 PO
[2019-01-02] MEDS ORDERED: ONDANSETRON HCL 4 MG/2 ML VIAL ONE (10:43)
[2019-01-02] MEDS ORDERED: MORPHINE SULFATE 4 MG/1ML SYG ONE (10:44)
[2019-01-02 11:01] LABS: BASOPHILS % (AUTO) 0.7 % (0.0-5.0); EOSINOPHILS % (AUTO) 3.5 % (0.0-8.0); HEMATOCRIT 47.8 % (42-54); LYMPHOCYTES % (AUTO) 18.7 % (21.0-51.0); MEAN CORPUSCULAR HEMOGLOBIN 31.4 pg (27.0-33.0); MEAN CORPUSCULAR HGB CONC 33.8 g/dL (32.0-36.0); MONOCYTES % (AUTO) 6.1 % (3.0-13.0); PLATELET COUNT (AUTO) 171 K/uL (130-400); RED BLOOD CELL COUNT(AUTO) 5.14 MIL/uL (4.50-6.20); RED CELL DISTRIBUTION WIDTH 13.9 % (11.0-15.5); WHITE BLOOD COUNT (AUTO) 6.3 K/uL (4.8-10.8)
[2019-01-02 11:11] LABS: POTASSIUM 3.6 mmol/L (3.5-5.1)
[2019-01-02 11:17] LABS: ALBUMIN 3.4 g/dL (3.5-5.0); BILIRUBIN,TOTAL 0.8 mg/dL (0.2-1.0)
[2019-01-02] MEDS ORDERED: ATROPINE SULFATE 0.1 MG/ML 10 ML SYG IVP ONE (11:36)
[2019-01-02] MEDS ORDERED: SODIUM CHLORIDE 0.9% 1000ML 1,000 ML IV ONE (11:36)
[2019-01-02] MEDS ORDERED: ASPIRIN 325 MG TABLET ONE (12:40)
[2019-01-02] MEDS ORDERED: CLOPIDOGREL BISULFATE 300 MG TAB ONE (12:40)
[2019-01-02] MEDS: SODIUM CHLORIDE 0.9% 1000ML 1,000 ML IV SCH (12:45)
[2019-01-02] MEDS ORDERED: GLUCAGON 1MG KIT 1 MG ML IM PRN (12:45)
[2019-01-02] MEDS ORDERED: DEXTROSE 50%-WATER 50 ML DISP.SYRIN IV PRN (12:45)
[2019-01-02 13:09] VITALS: BP 113/64
[2019-01-02] MEDS ORDERED: ASPI-555 PO (13:26)
[2019-01-02] MEDS ORDERED: CLOP75TA32 PO (13:26)
[2019-01-02] MEDS ORDERED: ISOS30TA6 PO (13:26)
[2019-01-02] MEDS ORDERED: NITROGLYCERIN 0.4 MG SL TAB SL PRN (15:30)
[2019-01-02] MEDS ORDERED: HYDROCODONE/ACETAMINOPHEN 5/325 MG TAB PO PRN (15:30)
[2019-01-02 15:41] VITALS: BP 109/73
[2019-01-02 16:03] LABS: INR 0.97 (0.85-1.15); PARTIAL THROMBOPLASTIN TIME 30.4 SEC (26.3-35.5); PROTHROMBIN TIME 10.2 SEC (9.6-11.6)
[2019-01-02] MEDS: INSULIN R PO SS1 SQ SCH ×2 (16:30→21:00)
[2019-01-02 19:05] LABS: CREATINE KINASE, TOTAL 71 U/L (21-232); MYOGLOBIN 44 ng/mL (10-92); TROPONIN I < 0.04 ng/mL (0.00-0.06)
[2019-01-02 19:27] VITALS: BP 100/57
[2019-01-02] MEDS ORDERED: ATORVASTATIN CALCIUM 40 MG TABLET PO SCH (21:00)
[2019-01-02] MEDS: METOPROLOL TARTRATE 25 MG TAB PO SCH (21:14)
[2019-01-03 00:23] VITALS: BP 104/67
[2019-01-03] MEDS: SODIUM CHLORIDE 0.9% 1000ML 1,000 ML IV SCH (02:05)
[2019-01-03 03:52] VITALS: BP 101/61
[2019-01-03] MEDS: INSULIN R PO SS1 SQ SCH ×2 (07:01→11:28)
[2019-01-03] MEDS: METOPROLOL TARTRATE 25 MG TAB PO SCH (07:37)
[2019-01-03 08:04] VITALS: BP 126/83
[2019-01-03] MEDS ORDERED: ASPIRIN 81MG TAB.CHEW PO SCH (09:00)
[2019-01-03] MEDS ORDERED: ISOSORBIDE MONO 30MG TAB SR PO SCH (09:00)
[2019-01-03] MEDS ORDERED: ENOXAPARIN SODIUM 40 MG/0.4 ML SYRINGE SQ SCH (09:00)
[2019-01-03] MEDS ORDERED: TAMSULOSIN HCL 0.4 MG CAP.ER.24H PO SCH (09:00)
[2019-01-03] MEDS ORDERED: CLOPIDOGREL BISULFATE 75 MG TAB PO SCH (09:00)
[2019-01-03] MEDS ORDERED: OSELTAMIVIR PHOSPHATE 75 MG CAP PO SCH ×2 (09:45→21:00)
[2019-01-03 12:00] VITALS: BP 119/77
== END 2019-01-03 13:00 | disposition home or self-care (01) ==
LOC: EDH 10:17 → INTOOBSV 10:18 → EDHIP 10:18 → 2AH 13:00
PROVIDERS: ADMIT Internal Medicine Critical Care Medicine; ATTEND Internal Medicine Critical Care Medicine
DX: I25.119 Atherosclerotic heart disease of native coronary artery with unspecified angina pectoris (principal); E11.9 Type 2 diabetes mellitus without complications; I10 Essential (primary) hypertension; E66.01 Morbid (severe) obesity due to excess calories; E78.5 Hyperlipidemia, unspecified; G47.33 Obstructive sleep apnea (adult) (pediatric); J10.1 Influenza due to other identified influenza virus with other respiratory manifestations; Z87.891 Personal history of nicotine dependence; Z95.5 Presence of coronary angioplasty implant and graft; Z90.49 Acquired absence of other specified parts of digestive tract; Z90.89 Acquired absence of other organs; Z79.899 Other long term (current) drug therapy; Z79.01 Long term (current) use of anticoagulants
CPT/HCPCS: 36415; 71045; 80053; 82550 ×2; 82948 ×4; 83874; 84484 ×2; 85025; 85378; 85610; 85730; 87804 ×2; 93005 ×4; 93880; 96372; 99291; G0378 ×27; J0461; J1650; J2270; J2405; J7030 ×2

== ENCOUNTER 2019-04-17 14:55 | Observation (INO) | payer MEDICAID, OTHER ==
[~2019-04-17] VITALS: Ht 172.7 cm; Wt 99.0 kg
[~2019-04-17 14:55] MED LIST changes: +ASPI-555 PO; -ATOR10TA69 PO; +CLOP75TA32 PO; +ISOS30TA6 PO
[2019-04-17 15:48] LABS: BASOPHILS % (AUTO) 1.1 % (0.0-5.0); EOSINOPHILS % (AUTO) 5.5 % (0.0-8.0); HEMATOCRIT 48.6 % (42-54); LYMPHOCYTES % (AUTO) 21.9 % (21.0-51.0); MEAN CORPUSCULAR HEMOGLOBIN 31.3 pg (27.0-33.0); MEAN CORPUSCULAR VOLUME 92.2 fL (79-99); MONOCYTES % (AUTO) 8.9 % (3.0-13.0); NEUTROPHILS % (AUTO) 62.6 % (40.0-77.0); NUCLEATED RED BLOOD CELLS 0.1 % (0.0-0.19); PLATELET COUNT (AUTO) 196 K/uL (130-400); RED BLOOD CELL COUNT(AUTO) 5.27 MIL/uL (4.50-6.20); RED CELL DISTRIBUTION WIDTH 13.9 % (11.0-15.5); WHITE BLOOD COUNT (AUTO) 6.2 K/uL (4.8-10.8)
[2019-04-17 16:08] LABS: CREATININE 0.9 mg/dL (0.5-1.5); POTASSIUM 3.7 mmol/L (3.5-5.1)
[2019-04-17 16:09] LABS: INR 0.95 (0.85-1.15); PARTIAL THROMBOPLASTIN TIME 28.5 SEC (26.3-35.5)
[2019-04-17 16:12] LABS: ALBUMIN 3.5 g/dL (3.5-5.0); BILIRUBIN,TOTAL 0.5 mg/dL (0.2-1.0); TOTAL PROTEIN, SERUM 7.2 g/dL (6.0-8.3)
[2019-04-17] MEDS ORDERED: ASPIRIN 81MG TAB.CHEW ONE (19:30)
[2019-04-17] MEDS ORDERED: MORPHINE SULFATE 2 MG/ML 1ML SYG IVP PRN (19:45)
[2019-04-17] MEDS ORDERED: METOPROLOL TARTRATE 25 MG TAB PO SCH (21:00)
[2019-04-17 21:41] LABS: CREATINE KINASE, TOTAL 76 U/L (21-232); MYOGLOBIN 48 ng/mL (10-92); TROPONIN I < 0.04 ng/mL (0.00-0.06)
[2019-04-17 21:55] VITALS: BP 120/77
[2019-04-17] MEDS ORDERED: ATOR10TA69 PO (22:16)
[2019-04-17] MEDS ORDERED: FLUO-126 PO ×2 (22:20)
[2019-04-17] MEDS: SODIUM CHLORIDE 0.9% 1000ML 1,000 ML IV SCH (23:03)
[2019-04-17] MEDS: METOPROLOL TARTRATE 25 MG TAB PO SCH (23:03)
[2019-04-17] MEDS: FAMOTIDINE 20MG TAB 20 MG TAB PO SCH (23:03)
[2019-04-18] VITALS (7 sets, daily range): BP systolic 109–141; BP diastolic 64–83
[2019-04-18] MEDS ORDERED: LORAZEPAM 0.5 MG TABLET PO PRN (02:30)
[2019-04-18 05:24] LABS: EOSINOPHILS % (AUTO) 7.3 % (0.0-8.0); HEMATOCRIT 46.5 % (42-54); LYMPHOCYTES % (AUTO) 22.8 % (21.0-51.0); MEAN CORPUSCULAR HEMOGLOBIN 31.3 pg (27.0-33.0); MEAN CORPUSCULAR HGB CONC 33.7 g/dL (32.0-36.0); MEAN CORPUSCULAR VOLUME 93.1 fL (79-99); MONOCYTES % (AUTO) 10.6 % (3.0-13.0); NEUTROPHILS % (AUTO) 58.3 % (40.0-77.0); PLATELET COUNT (AUTO) 174 K/uL (130-400); RED BLOOD CELL COUNT(AUTO) 4.99 MIL/uL (4.50-6.20); RED CELL DISTRIBUTION WIDTH 13.8 % (11.0-15.5); WHITE BLOOD COUNT (AUTO) 5.7 K/uL (4.8-10.8)
--- NOTE | 2019-04-18 05:30 | NUR ---
NOTE PATIENT REPORTS THAT TINGLING IN FACE HAS SUBSIDED. CHEST DISCOMFORT JUST SOME SORENESS.
[2019-04-18 05:31] LABS: HEMOGLOBIN A1C 5.3 % (4.0-6.0)
[2019-04-18 05:49] LABS: ALBUMIN 3.1 g/dL (3.5-5.0); BILIRUBIN,TOTAL 0.6 mg/dL (0.2-1.0); CREATININE 0.9 mg/dL (0.5-1.5); POTASSIUM 4.4 mmol/L (3.5-5.1); THYROID STIMULATING HORMONE 0.81 uIU/mL (0.36-3.74); TOTAL PROTEIN, SERUM 6.5 g/dL (6.0-8.3)
[2019-04-18] MEDS: SODIUM CHLORIDE 0.9% 1000ML 1,000 ML IV SCH (08:09)
[2019-04-18] MEDS: CLOPIDOGREL BISULFATE 75 MG TAB PO SCH (08:40)
[2019-04-18] MEDS: FAMOTIDINE 20MG TAB 20 MG TAB PO SCH ×2 (08:40→20:27)
[2019-04-18] MEDS: ASPIRIN 81 MG EC TAB PO SCH (08:40)
[2019-04-18] MEDS: METOPROLOL TARTRATE 25 MG TAB PO SCH ×2 (08:41→20:26)
[2019-04-18] MEDS ORDERED: ENOXAPARIN SODIUM 30 MG/0.3 ML SQ SCH (09:00)
[2019-04-18] MEDS ORDERED: ENOXAPARIN SODIUM 40 MG/0.4 ML SYRINGE SQ SCH (09:00)
--- NOTE | 2019-04-18 09:13 | NUR ---
PAGED DR FUNK (CARDIO) DR FUNK ( [employer]) PAGED AT THIS TIME. LEFT MESSAGE WITH ELI AT CONSULT NUMBER, PENDING CB
--- NOTE | 2019-04-18 10:52 | NUR ---
DR GOOD FUNK IN FACILITY TO SEE PT. ADJUSTED SOME MEDICATIONS AND ORDERED CT SCAN OF CHEST, STATED FOLLOW UP WITH [employer] AND DR GAR OUTPATIENT. PER DR FUNK NO MORE INTERVENTION NEEDED ON CARDIOLOGY SIDE HE WILL SIGN OFF
--- NOTE | 2019-04-18 20:27 | NUR ---
MEDS PT INFORMED THAT MRI WILL NOT BE DONE UNTIL THE AM NO BARREL INSPECTOR TIGHT IS ON TO DO TEST. PT VERBALIZES UNDERSTANDING. SHIFT ASSESSMENT DONE, PLEASE REFER TO CHART. DUE MEDS ADMINISTERED, TOLERATED WELL. KEPT RESTED AND COMFORTABLE. CALL LIGHT WITHIN REACH. WILL MONITOR PT. Addendum: 04/19/19 at 0256 by DOUG SOTO RN RN Amended: Links added.
[2019-04-18] MEDS ORDERED: ATORVASTATIN CALCIUM 40 MG TABLET PO SCH (21:00)
--- NOTE | 2019-04-19 01:00 | NUR ---
PIV PT AWAKENS TO USE THE RESTROOM AND COMPLAINTS OF ITCHING ON PIV SITE. VERBALIZES TO BE FEELING FINE JUST TIRED. NOTED PIV TO BE INFILTRATED. DISCONTINUED PIV WITH CATHETER INTACT. RE-INSERTED PIV G20 TO RT HAND THEN CONTINUED IVF OF NS AT 50CC/HR. ENCOURAGED TO REST AND SLEEP. WILL MONITOR PT. Addendum: 04/19/19 at 0259 by DOUG SOTO RN RN Amended: Links added.
[2019-04-19] MEDS: SODIUM CHLORIDE 0.9% 1000ML 1,000 ML IV SCH ×2 (02:09→12:20)
[2019-04-19 03:44] VITALS: BP 109/74
--- NOTE | 2019-04-19 05:20 | NUR ---
ROUNDS PT FAIRLY ASLEEP WITH RESPIRATIONS EVEN AND UNLABORED. NO NOTED DISTRESS. KEPT UNDISTURBED FOR NOW. CALL LIGHT WITHIN REACH. FOR MORE CARE.
[2019-04-19 08:04] VITALS: BP 131/84
--- NOTE | 2019-04-19 10:51 | NUR ---
DCP CM met with pt discussed dc plans. Pt is independent prior to admission, lives at home w/spouse, 2 minor children and 3 adult children. Pt has a cpap and provider 22hrs/day. Denies any other equipments/services. Feels safe to go back home, spouse able to assist with transportation and needs as necessary. DC plan to home once stable. CM to cont to follow up. Addendum: 04/19/19 at 1052 by CHANCE COOPER LVN CM Amended: Links added.
[2019-04-19] MEDS: CLOPIDOGREL BISULFATE 75 MG TAB PO SCH (10:58)
[2019-04-19] MEDS: ASPIRIN 81 MG EC TAB PO SCH (10:58)
[2019-04-19] MEDS: FAMOTIDINE 20MG TAB 20 MG TAB PO SCH (10:58)
[2019-04-19] MEDS: METOPROLOL TARTRATE 25 MG TAB PO SCH (10:59)
[2019-04-19 11:00] VITALS: BP 130/83
== END 2019-04-19 17:19 | disposition home or self-care (01) ==
LOC: EDH 14:55 → EDHIP 14:56 → 4CH 21:04
PROVIDERS: ADMIT Family Medicine; ATTEND Family Medicine
DX: E78.5 Hyperlipidemia, unspecified (principal); I25.10 Atherosclerotic heart disease of native coronary artery without angina pectoris; I10 Essential (primary) hypertension; F43.10 Post-traumatic stress disorder, unspecified; F41.9 Anxiety disorder, unspecified; G47.33 Obstructive sleep apnea (adult) (pediatric); M54.12 Radiculopathy, cervical region; Z87.891 Personal history of nicotine dependence; Z95.5 Presence of coronary angioplasty implant and graft; Z90.49 Acquired absence of other specified parts of digestive tract; Z91.19 Patient's noncompliance with other medical treatment and regimen; Z79.82 Long term (current) use of aspirin; Z79.02 Long term (current) use of antithrombotics/antiplatelets; Z79.899 Other long term (current) drug therapy
CPT/HCPCS: 36415 ×2; 71045; 71250; 72141; 80053 ×2; 80061; 82550 ×2; 83036; 83874; 84443; 84484 ×3; 85025 ×2; 85610; 85730; 93005; 99284; G0378 ×46; J7030 ×2

== ENCOUNTER 2019-05-21 19:17 | Observation (INO) | payer MEDICAID ==
[~2019-05-21] VITALS: Ht 172.7 cm; Wt 99.8 kg
[~2019-05-21 19:17] MED LIST changes: +FLUO20CA34 PO
[2019-05-21 19:46] LABS: BASOPHILS % (AUTO) 0.4 % (0.0-5.0); HEMATOCRIT 43.7 % (42-54); LYMPHOCYTES % (AUTO) 15.7 % (21.0-51.0); MEAN CORPUSCULAR HEMOGLOBIN 30.1 pg (27.0-33.0); MEAN CORPUSCULAR HGB CONC 33.6 g/dL (32.0-36.0); MEAN CORPUSCULAR VOLUME 89.4 fL (79-99); MONOCYTES % (AUTO) 10.9 % (3.0-13.0); NEUTROPHILS % (AUTO) 72.8 % (40.0-77.0); PLATELET COUNT (AUTO) 128 K/uL (130-400); RED BLOOD CELL COUNT(AUTO) 4.89 MIL/uL (4.50-6.20); RED CELL DISTRIBUTION WIDTH 12.8 % (11.0-15.5); WHITE BLOOD COUNT (AUTO) 4.5 K/uL (4.8-10.8)
[2019-05-21 19:54] LABS: CARBON DIOXIDE 26 mmol/L (21-32); CHLORIDE 99 mmol/L (101-111); CREATININE 1.1 mg/dL (0.5-1.5); GLOMERULAR FILTR. RATE CALC 75 mL/min (>60); GLUCOSE,RANDOM 172 mg/dL (70-105); POTASSIUM 3.4 mmol/L (3.5-5.1); SODIUM SERUM 134 mmol/L (136-145); UREA NITROGEN, BLOOD 15 mg/dL (7-18)
[2019-05-21 19:58] LABS: INR 1.01 (0.85-1.15); PARTIAL THROMBOPLASTIN TIME 32.1 SEC (26.3-35.5); PROTHROMBIN TIME 10.6 SEC (9.6-11.6)
[2019-05-21 19:59] LABS: ALANINE AMINOTRANSFERASE 33 U/L (12-78); ALBUMIN 3.1 g/dL (3.5-5.0); ALCOHOL, BLOOD < 3 mg/dL (0-10); ASPARTATE AMINOTRANSFERASE 27 U/L (10-37); BILIRUBIN,TOTAL 0.8 mg/dL (0.2-1.0); LIPASE 121 U/L (114-286); TOTAL PROTEIN, SERUM 6.7 g/dL (6.0-8.3)
[2019-05-21 21:40] LABS: APPEARANCE,URINE Clear (CLEAR); BILIRUBIN,URINE Negative (NEGATIVE); COLOR,URINE Dark Yellow (YELLOW); GLUCOSE, URINE (UA) Negative (NEGATIVE); KETONES,URINE Trace mg/dL (NEGATIVE); LEUKOCYTE ESTERASE ,URINE Negative (NEGATIVE); NITRATE,URINE Negative (NEGATIVE); OCCULT BLOOD,URINE Negative (NEGATIVE); PH,URINE 5.5 (5.0-8.0); PROTEIN,URINE POS 1+ mg/dL (NEGATIVE)
[2019-05-21 21:54] LABS: BACTERIA,URINE Few /HPF (None Seen); MUCUS,URINE Moderate LPF (None Seen); SQUAMOUS EPITHELIAL CELL,UR Few /HPF (0-2)
[2019-05-21 22:09] LABS: AMPHET/METH SCREEN,URINE NEGATIVE (NEGATIVE); BARBITURATE SCREEN, URINE NEGATIVE (NEGATIVE); BENZODIAZEPINES SCREEN,URINE NEGATIVE (NEGATIVE); CANNABINOID SCREEN,URINE NEGATIVE (NEGATIVE); COCAINE SCREEN,URINE NEGATIVE (NEGATIVE); OPIATE SCREEN,URINE NEGATIVE (NEGATIVE); PHENCYCLIDINE SCREEN,URINE NEGATIVE (NEGATIVE)
[2019-05-22] VITALS (15 sets, daily range): BP systolic 96–136; BP diastolic 55–81
[2019-05-22] MEDS ORDERED: ONDANSETRON HCL 4 MG/2 ML VIAL IV PRN (00:30)
[2019-05-22] MEDS ORDERED: LACTULOSE 20 GM/30 ML UDCUP PO PRN (00:30)
[2019-05-22] MEDS ORDERED: ACETAMINOPHEN 325 MG TAB PO PRN (00:30)
[2019-05-22] MEDS ORDERED: POTASSIUM CHLORIDE 20 MEQ ERTAB PO PRN (00:45)
[2019-05-22] MEDS ORDERED: POTASSIUM CHLORIDE 10MEQ/100ML 100 ML IV PRN (00:45)
[2019-05-22] MEDS ORDERED: LIDOCAINE HCL-MPF 1% 2ML VIAL IV PRN (00:45)
[2019-05-22] MEDS ORDERED: POTASSIUM CHLORIDE 10% ELIXIR 20 MEQ/15 ML UDCUP PO PRN (00:45)
[2019-05-22] MEDS ORDERED: ASPIRIN 81MG TAB.CHEW ONE (08:35)
[2019-05-22] MEDS: ASPIRIN 325 MG TABLET PO SCH (09:00)
[2019-05-22] MEDS: ACETAMINOPHEN 325 MG TAB PO PRN ×2 (09:38→23:54)
--- NOTE | 2019-05-22 15:45 | NUR ---
Notified Maxim Munguia NP of flu-like symptoms reported by patient's spouse on . Received order for flu swab, cardiology consult to review orthostatic hypotension and cardiac medications. Per Blank, marleny message with Ekta at Dr. Robles's office to notify of consult.
--- NOTE | 2019-05-22 16:00 | NUR ---
Personal Attendant Blank contacted Dr. Robles's office to notify of pending consult, no call back yet from Dr. Robles. Dr. Robles paged.
--- NOTE | 2019-05-22 16:10 | NUR ---
Notified Dr. Robles of new consult for orthostatic hypotension and recommendation for cardiac medications. Dr. Robles to see [facility].
--- NOTE | 2019-05-22 16:13 | NUR ---
Received notification from lab of critical value, postive for influenza A. Notified Angie Munguia NP.
--- NOTE | 2019-05-22 18:49 | NUR ---
cm note met with patient and states resides at home with spouse, and family. indeendent with ambulation. has provider for assist with adls. 4hrs. daily. dc plan is back to home at mi. no dc needs. Addendum: 05/22/19 at 1852 by RUFUS AMADO CM Amended: Links added.
[2019-05-22] MEDS: OSELTAMIVIR PHOSPHATE 75 MG CAP PO SCH (21:59)
[2019-05-22] MEDS ORDERED: DIPHENHYDRAMINE HCL 25 MG CAPSULE ONE (22:24)
[2019-05-22] MEDS: DIPHENHYDRAMINE HCL 25 MG CAPSULE PO SCH (22:30)
[2019-05-23] VITALS (7 sets, daily range): BP systolic 92–122; BP diastolic 62–73
[2019-05-23] MEDS: ASPIRIN 325 MG TABLET PO SCH (09:00)
[2019-05-23] MEDS: OSELTAMIVIR PHOSPHATE 75 MG CAP PO SCH ×2 (09:00→21:23)
--- NOTE | 2019-05-23 09:16 | NUR ---
CHART REVIEWED PENDING EEG. DR. WINKLER TO SEE. WILL ASK IF EEG OK W/ HIM. WAITING ON HIS RECOMMENDATIONS
--- NOTE | 2019-05-23 11:26 | NUR ---
LEFT MESSAGE ON DR ADAMS PHONE REGARDING CONSULT FROM YESTERDAY IF HE SAW PATIENT ..PENDING CALL BACK
[2019-05-23] MEDS: LEVETIRACETAM 500 MG TABLET PO SCH ×2 (11:58→21:23)
[2019-05-23] MEDS: SODIUM CHLORIDE 0.9% 1000ML 1,000 ML IV SCH ×2 (11:59→21:24)
[2019-05-23] MEDS: GUAIFENESIN-DM 200/20 MG 10 ML PO PRN ×2 (13:12→21:24)
[2019-05-23] MEDS: DIPHENHYDRAMINE HCL 25 MG CAPSULE PO SCH (20:32)
[2019-05-24] VITALS (7 sets, daily range): BP systolic 108–126; BP diastolic 63–77
[2019-05-24] MEDS: SODIUM CHLORIDE 0.9% 1000ML 1,000 ML IV SCH (05:24)
[2019-05-24 06:34] LABS: MAGNESIUM 1.9 mg/dL (1.80-2.40); POTASSIUM 4.1 mmol/L (3.5-5.1)
[2019-05-24] MEDS ORDERED: ASPIRIN 81MG TAB.CHEW PO SCH (09:00)
[2019-05-24] MEDS: LEVETIRACETAM 500 MG TABLET PO SCH (09:48)
[2019-05-24] MEDS: OSELTAMIVIR PHOSPHATE 75 MG CAP PO SCH (09:48)
[2019-05-24] MEDS ORDERED: LEVE-43 PO (10:19)
[2019-05-24] MEDS ORDERED: OSEL75 PO (10:19)
--- NOTE | 2019-05-24 12:31 | NUR ---
DISCHARGE INSTRUCTION PROVIDED TO PATIENT ,ALONG WITH INFORMATION ON POSSIBLE SIDE EFFECTS TO LOOK AT ON KEPPRA AND TAMIFLU PRESCRIPTIONS .. LET PATIENT KNOW TO NOT DRIVE UNTIL CLEARED BY DR WINKLER , AND TO MAKE SLOW BODY POSITIONS TO HELP PREVENT DIZZY SPELLS ALSO LET HIM KNOW PER DR CADENA OFFICE WILL NEED TO F/U WITH PRIMARY DOCTOR FIRST BEFORE MAKING APPT WITH DR WINKLER .. PATIENT VERBILIZED UNDERSTADING
== END 2019-05-24 12:30 | disposition home or self-care (01) ==
LOC: EDH 19:17 → INTOOBSV 19:18 → EDHIP 19:18 → OBSVTOIN 19:18 → 4CH 05-22 02:29
PROVIDERS: ADMIT Hospitalist; ATTEND Hospitalist
DX: R55 Syncope and collapse (principal); E87.6 Hypokalemia; E44.0 Moderate protein-calorie malnutrition; I25.10 Atherosclerotic heart disease of native coronary artery without angina pectoris; F05 Delirium due to known physiological condition; J09.X2 Influenza due to identified novel influenza A virus with other respiratory manifestations; I10 Essential (primary) hypertension; E78.5 Hyperlipidemia, unspecified; F43.10 Post-traumatic stress disorder, unspecified; Z87.891 Personal history of nicotine dependence; Z90.49 Acquired absence of other specified parts of digestive tract; Z95.5 Presence of coronary angioplasty implant and graft; Z79.82 Long term (current) use of aspirin; Z79.899 Other long term (current) drug therapy
CPT/HCPCS: 36415 ×2; 70450; 70544; 70547; 70551; 71045; 80048; 80053; 80305; 81001; 83690; 83735; 84484; 85025; 85610; 85730; 87804 ×2; 93005; 93880; 95819; 96360; 96361 ×2; 99284; G0378 ×60; G0480; Q0163

== ENCOUNTER 2019-11-26 12:41 | Emergency (ER) | payer MEDICAID ==
[~2019-11-26 12:41] MED LIST changes: -ASPI-555 PO; +ASPI-556 PO; -FLUO20CA34 PO; +FLUO20CA35 PO; -ISOS30TA6 PO; +LEVE-43 PO; +OSEL75 PO
== END 2019-11-26 14:18 | disposition home or self-care (01) ==
LOC: EDH 12:41
DX: B34.9 Viral infection, unspecified (principal); Z20.828 Contact with and (suspected) exposure to other viral communicable diseases; E78.5 Hyperlipidemia, unspecified; I10 Essential (primary) hypertension; Z90.49 Acquired absence of other specified parts of digestive tract
CPT/HCPCS: 99283; U0003; 36415

== ENCOUNTER 2020-04-01 23:41 | Observation (INO) | payer MEDICAID, OTHER ==
[~2020-04-01] VITALS: Ht 172.7 cm; Wt 107.0 kg
[2020-04-02] VITALS (7 sets, daily range): BP systolic 93–116; BP diastolic 67–78
[2020-04-02 00:24] LABS: BASOPHILS % (AUTO) 0.6 % (0.0-5.0); EOSINOPHILS % (AUTO) 6.5 % (0.0-8.0); HEMATOCRIT 45.5 % (42-54); LYMPHOCYTES % (AUTO) 24.1 % (21.0-51.0); MEAN CORPUSCULAR HGB CONC 34.7 g/dL (32.0-36.0); MEAN CORPUSCULAR VOLUME 89.2 fL (79-99); MONOCYTES % (AUTO) 8.1 % (3.0-13.0); NEUTROPHILS % (AUTO) 60.2 % (40.0-77.0); PLATELET COUNT (AUTO) 204 K/uL (130-400); RED CELL DISTRIBUTION WIDTH 12.9 % (11.0-15.5); WHITE BLOOD COUNT (AUTO) 6.4 K/uL (4.8-10.8)
[2020-04-02 00:33] LABS: CREATININE 1.1 mg/dL (0.5-1.5); POTASSIUM 3.8 mmol/L (3.5-5.1)
[2020-04-02 00:38] LABS: ALBUMIN 3.2 g/dL (3.5-5.0); BILIRUBIN,TOTAL 0.3 mg/dL (0.2-1.0); INR 0.91 (0.85-1.15); PARTIAL THROMBOPLASTIN TIME 30.5 SEC (26.3-35.5); PROTHROMBIN TIME 9.9 SEC (9.6-11.6); TOTAL PROTEIN, SERUM 7.1 g/dL (6.0-8.3)
[2020-04-02 00:47] LABS: CREATINE KINASE, TOTAL 89 U/L (21-232); MYOGLOBIN 41 ng/mL (10-92); TROPONIN I < 0.04 ng/mL (0.00-0.06)
[2020-04-02] MEDS ORDERED: HYDRALAZINE HCL 20 MG/ML VIAL IV PRN (01:45)
[2020-04-02] MEDS ORDERED: LACTULOSE 20 GM/30 ML UDCUP PO PRN (01:45)
[2020-04-02] MEDS ORDERED: ACETAMINOPHEN 325 MG TAB PO PRN ×2 (01:45)
[2020-04-02] MEDS ORDERED: ONDANSETRON HCL 4 MG/2 ML VIAL IV PRN (01:45)
[2020-04-02] MEDS ORDERED: MORPHINE SULFATE 2 MG/ML 1ML SYG IV PRN (01:45)
[2020-04-02] MEDS ORDERED: NITROGLYCERIN 0.4 MG SL TAB SL PRN (01:45)
--- NOTE | 2020-04-02 03:00 | NUR ---
PATIENT ARRIVED ON UNIT. DENIES CHEST PAIN AT THIS TIME. DOES HAVE SOB WITH EXERTION. CURRENTLY ON 2L NC. PATIENT STATES HE DOES HAVE MEDICATIONS NOT CURRENTLY TAKING THEM. NON COMPLIANT WITH MEDS. AMBULATES WITH STEADY GAIT. WILL CONTINUE TO MONITOR.
[2020-04-02 05:09] LABS: HEMOGLOBIN A1C 5.4 % (4.0-6.0)
[2020-04-02 05:10] LABS: THYROID STIMULATING HORMONE 2.6 uIU/mL (0.36-3.74)
[2020-04-02] MEDS ORDERED: METOPROLOL TARTRATE 25 MG TAB PO SCH (09:00)
[2020-04-02] MEDS: ASPIRIN 81MG TAB.CHEW PO SCH (09:05)
[2020-04-02] MEDS: FAMOTIDINE 20MG TAB 20 MG TAB PO SCH ×2 (09:05→20:25)
[2020-04-02] MEDS: ENOXAPARIN SODIUM 40 MG/0.4 ML SYRINGE SQ SCH (09:06)
--- NOTE | 2020-04-02 13:30 | NUR ---
Angie PRIETO NP, IN ROOM FOR CONSULT, SPEAKING WITH PT. RE:PLAN OF CARE. QUESTIONS ANSWERED BY NDanielaPDaniela, PT. VERBALIZED UNDERSTANDING.
--- NOTE | 2020-04-02 14:04 | NUR ---
DR. Angie HERNANDEZ IN ROOM, FOR CONSULT, SPEAKING WITH PT. RE:PLAN OF CARE. QUESTIONS ANSWERED BY DR. HERNANDEZ, PT. VERBALIZED UNDERSTANDING.
--- NOTE | 2020-04-02 16:08 | NUR ---
IA not done. Phone numbers listed not answering.
--- NOTE | 2020-04-02 17:37 | NUR ---
MET W PATIENT AT [facility] STATES LIVES WITH SPOUSE,HOME SAFE/ACCESSIBLE; IS INDEPENDENT AND ACTIVE, HAS CANE, DRIVES, HAS PROVIDER HOURS< 20/WK IS DISABLED SINCE 2011 SECOND TO COMBAT/PTSD; FOLLOWS AT NE W DR. DEL REAL- NO NE INFORMATION ON HIS CHART, STATES [facility] CM WILL FOLLOW UP W REGISTRATION TO CORRECT DCP HOME Addendum: 04/02/20 at 1740 by BENNIE BENÍTEZ RN CM Amended: Links added.
[2020-04-02] MEDS: ATORVASTATIN CALCIUM 20 MG TABLET PO SCH (20:25)
[2020-04-02] MEDS: METOPROLOL TARTRATE 25 MG TAB PO SCH (20:25)
[2020-04-03 03:43] VITALS: BP 96/67
[2020-04-03 05:18] LABS: BASOPHILS % (AUTO) 0.7 % (0.0-5.0); EOSINOPHILS % (AUTO) 7.4 % (0.0-8.0); HEMATOCRIT 47.9 % (42-54); MEAN CORPUSCULAR HEMOGLOBIN 30.1 pg (27.0-33.0); MEAN CORPUSCULAR HGB CONC 33.2 g/dL (32.0-36.0); MEAN CORPUSCULAR VOLUME 90.7 fL (79-99); NEUTROPHILS % (AUTO) 55.4 % (40.0-77.0); PLATELET COUNT (AUTO) 208 K/uL (130-400); RED BLOOD CELL COUNT(AUTO) 5.28 MIL/uL (4.50-6.20); RED CELL DISTRIBUTION WIDTH 13.2 % (11.0-15.5); WHITE BLOOD COUNT (AUTO) 5.6 K/uL (4.8-10.8)
[2020-04-03 05:39] LABS: ALBUMIN 3.1 g/dL (3.5-5.0); BILIRUBIN,TOTAL 0.5 mg/dL (0.2-1.0); CREATININE 1.2 mg/dL (0.5-1.5); POTASSIUM 4.5 mmol/L (3.5-5.1)
[2020-04-03 08:00] VITALS: BP 113/75
[2020-04-03] MEDS: FAMOTIDINE 20MG TAB 20 MG TAB PO SCH ×2 (09:26→20:30)
[2020-04-03] MEDS: ASPIRIN 81MG TAB.CHEW PO SCH (09:27)
[2020-04-03] MEDS: ENOXAPARIN SODIUM 40 MG/0.4 ML SYRINGE SQ SCH (09:28)
[2020-04-03] MEDS: METOPROLOL TARTRATE 25 MG TAB PO SCH ×2 (09:28→20:30)
[2020-04-03] MEDS ORDERED: REGADENOSON 0.4 MG/5 ML PF SYG IVP SCH (12:45)
[2020-04-03 16:00] VITALS: BP 115/70
[2020-04-03 19:54] VITALS: BP 115/75
[2020-04-03] MEDS: ATORVASTATIN CALCIUM 20 MG TABLET PO SCH (20:30)
[2020-04-03 23:48] VITALS: BP 103/72
--- NOTE | 2020-04-04 04:01 | NUR ---
ROUNDS PATIENT RESTING IN BED WITH OU CLOSED. EASILY AROUSED. NO COMPLAINTS OF PAIN AND OR CHEST PAIN AT THIS TIME. VITALS STABLE. AFEBRILE. RESP EVEN AND UNLABORED. NO SOB NOTED. ON ROOM AIR. UP WITH MINIMAL ASSIST. NO SIGNS OF DISTRESS NOTED. CALL LIGHT WITHIN REACH. WILL CONTINUE TO BE OBSERVED. Addendum: 04/04/20 at 0404 by SPENCER LUCIA RN RN Amended: Links added.
[2020-04-04 04:06] VITALS: BP 108/69
[2020-04-04 06:06] LABS: BASOPHILS % (AUTO) 0.8 % (0.0-5.0); EOSINOPHILS % (AUTO) 5.1 % (0.0-8.0); HEMATOCRIT 49.8 % (42-54); LYMPHOCYTES % (AUTO) 27.5 % (21.0-51.0); MEAN CORPUSCULAR HEMOGLOBIN 30.2 pg (27.0-33.0); MEAN CORPUSCULAR HGB CONC 33.1 g/dL (32.0-36.0); MONOCYTES % (AUTO) 10.8 % (3.0-13.0); NEUTROPHILS % (AUTO) 55.6 % (40.0-77.0); PLATELET COUNT (AUTO) 206 K/uL (130-400); RED BLOOD CELL COUNT(AUTO) 5.47 MIL/uL (4.50-6.20); RED CELL DISTRIBUTION WIDTH 12.7 % (11.0-15.5)
[2020-04-04 06:27] LABS: ALBUMIN 3.2 g/dL (3.5-5.0); BILIRUBIN,TOTAL 0.6 mg/dL (0.2-1.0); CREATININE 1.2 mg/dL (0.5-1.5); POTASSIUM 4.7 mmol/L (3.5-5.1); TOTAL PROTEIN, SERUM 7.2 g/dL (6.0-8.3)
[2020-04-04 08:00] VITALS: BP_SYST 127; BP_SYST 130; BP_DIAS 68; BP_DIAS 85
[2020-04-04] MEDS: FAMOTIDINE 20MG TAB 20 MG TAB PO SCH (08:41)
[2020-04-04] MEDS: METOPROLOL TARTRATE 25 MG TAB PO SCH (08:41)
[2020-04-04] MEDS: ASPIRIN 81MG TAB.CHEW PO SCH (08:42)
[2020-04-04] MEDS: ENOXAPARIN SODIUM 40 MG/0.4 ML SYRINGE SQ SCH (08:42)
[2020-04-04] MEDS ORDERED: METO25 PO (12:57)
[2020-04-04] MEDS ORDERED: PANT40TA PO (12:57)
[2020-04-04] MEDS ORDERED: ATOR20TA65 PO (12:57)
[2020-04-04] MEDS ORDERED: Nitroglycerin 0.4MG Sl Tab SL (12:57)
[2020-04-04 12:59] VITALS: BP 125/79
--- NOTE | 2020-04-04 14:30 | NUR ---
DC PT AWAKE, ALERT, AND ORIENTED. DENIES CHEST PAIN OR SOB, NO ANXIETY OR DISTRESS. DC INSTRUCTIONS GIVEN TO PT, ACKNOWLEDGED ALL INFORMATION, ALL QUESTIONS AND CONCERNS ANSWERED. EDUCATED ON IMPORTANCE OF TAKING MEDICATIONS ORDERED; WRITTEN RX GIVEN TO PT. STATES WILL TAKE TO [facility] PHARM[facility]Y TO FILL AND WILL REFILL REMAINDER OF MEDICATIONS. PT MADE AWARE TO CALL 911 IN CASE OF EMERGENCY OR TO CALL MD FOR QUESTIONS AND CONCERNS.
== END 2020-04-04 15:23 | disposition home or self-care (01) ==
LOC: EDH 23:41 → EDHIP 23:42 → 4DH 04-02 03:10
PROVIDERS: ADMIT Internal Medicine; ATTEND Internal Medicine
DX: R07.89 Other chest pain (principal); I25.10 Atherosclerotic heart disease of native coronary artery without angina pectoris; I34.0 Nonrheumatic mitral (valve) insufficiency; I34.1 Nonrheumatic mitral (valve) prolapse; I10 Essential (primary) hypertension; J44.9 Chronic obstructive pulmonary disease, unspecified; K58.9 Irritable bowel syndrome, unspecified; G40.909 Epilepsy, unspecified, not intractable, without status epilepticus; G30.9 Alzheimer's disease, unspecified; F43.10 Post-traumatic stress disorder, unspecified; F02.80 Dementia in other diseases classified elsewhere, unspecified severity, without behavioral disturbance, psychotic disturbance, mood disturbance, and anxiety; E78.5 Hyperlipidemia, unspecified; E66.9 Obesity, unspecified; R42 Dizziness and giddiness; D84.9 Immunodeficiency, unspecified; Z79.02 Long term (current) use of antithrombotics/antiplatelets; Z79.899 Other long term (current) drug therapy; Z91.19 Patient's noncompliance with other medical treatment and regimen; Z95.5 Presence of coronary angioplasty implant and graft
CPT/HCPCS: 36415 ×3; 71045; 78452; 80053 ×3; 80061; 82550; 83036; 83874; 83880; 84443; 84484 ×3; 85025 ×3; 85610; 85730; 93005 ×3; 93017; 93306; 93356; 96372 ×2; 99285; A9500 ×2; G0378 ×25; J1650 ×2; J2785; 96374

== ENCOUNTER 2020-12-29 12:48 | Emergency (ER) | payer OTHER, MEDICAID ==
[~2020-12-29] VITALS: Ht 172.7 cm; Wt 104.3 kg
[~2020-12-29 12:48] MED LIST changes: +ATOR20TA65 PO; +METO25 PO; +Nitroglycerin 0.4MG Sl Tab SL; +PANT40TA PO
[2020-12-29 13:11] LABS: BASOPHILS % (AUTO) 0.6 % (0.0-5.0); EOSINOPHILS % (AUTO) 4.7 % (0.0-8.0); HEMATOCRIT 45.8 % (42-54); LYMPHOCYTES % (AUTO) 20.1 % (21.0-51.0); MEAN CORPUSCULAR HEMOGLOBIN 30.5 pg (27.0-33.0); MEAN CORPUSCULAR HGB CONC 34.1 g/dL (32.0-36.0); MEAN CORPUSCULAR VOLUME 89.5 fL (79-99); MONOCYTES % (AUTO) 7.9 % (3.0-13.0); NEUTROPHILS % (AUTO) 66.2 % (40.0-77.0); PLATELET COUNT (AUTO) 201 K/uL (130-400); RED BLOOD CELL COUNT(AUTO) 5.12 MIL/uL (4.50-6.20); RED CELL DISTRIBUTION WIDTH 12.9 % (11.0-15.5); WHITE BLOOD COUNT (AUTO) 6.2 K/uL (4.8-10.8)
[2020-12-29 13:18] LABS: POTASSIUM 4.2 mmol/L (3.5-5.1)
[2020-12-29 13:19] LABS: INR 0.96 (0.85-1.15); PROTHROMBIN TIME 10.5 SEC (9.6-11.6)
[2020-12-29 13:23] LABS: ALBUMIN 3.3 g/dL (3.5-5.0); BILIRUBIN,TOTAL 0.6 mg/dL (0.2-1.0); MAGNESIUM 1.9 mg/dL (1.80-2.40)
[2020-12-29] MEDS ORDERED: ASPIRIN 325MG TAB PO ONE (13:26)
[2020-12-29 13:40] LABS: B-TYPE NATRIURETIC PEPTIDE 13 pg/mL (0-100)
[2020-12-29 14:00] VITALS: BP 128/76
[2020-12-29 15:00] VITALS: BP 128/74
[2020-12-29 16:00] VITALS: BP 131/86
== END 2020-12-29 19:01 | disposition home or self-care (01) ==
LOC: EDH 12:48
DX: R07.89 Other chest pain (principal); R06.02 Shortness of breath; Z79.82 Long term (current) use of aspirin; Z79.899 Other long term (current) drug therapy; Z95.5 Presence of coronary angioplasty implant and graft
CPT/HCPCS: 36415; 71045; 80053; 82550; 83735; 83880; 84484; 85025; 85378; 85610; 93005

== ENCOUNTER 2021-02-12 08:28 | Emergency (ER) | payer OTHER, MEDICAID ==
[~2021-02-12] VITALS: Ht 172.7 cm; Wt 104.3 kg
[2021-02-12 08:46] VITALS: BP 124/74
[2021-02-12 08:48] LABS: BASOPHILS % (AUTO) 0.9 % (0.0-5.0); HEMATOCRIT 47.7 % (42-54); LYMPHOCYTES % (AUTO) 22.1 % (21.0-51.0); MEAN CORPUSCULAR HEMOGLOBIN 30.5 pg (27.0-33.0); MEAN CORPUSCULAR VOLUME 89.8 fL (79-99); MONOCYTES % (AUTO) 10.1 % (3.0-13.0); NEUTROPHILS % (AUTO) 61.5 % (40.0-77.0); PLATELET COUNT (AUTO) 200 K/uL (130-400); RED BLOOD CELL COUNT(AUTO) 5.31 MIL/uL (4.50-6.20); RED CELL DISTRIBUTION WIDTH 13.2 % (11.0-15.5); WHITE BLOOD COUNT (AUTO) 5.4 K/uL (4.8-10.8)
[2021-02-12 09:03] LABS: INR 0.99 (0.85-1.15); PROTHROMBIN TIME 10.8 SEC (9.6-11.6)
[2021-02-12 09:05] LABS: PARTIAL THROMBOPLASTIN TIME 31.3 SEC (26.3-35.5)
[2021-02-12 09:12] LABS: ALBUMIN 3.3 g/dL (3.5-5.0); BILIRUBIN,TOTAL 0.6 mg/dL (0.2-1.0); CREATININE 0.9 mg/dL (0.5-1.5); POTASSIUM 4.7 mmol/L (3.5-5.1); TOTAL PROTEIN, SERUM 7.5 g/dL (6.0-8.3)
[2021-02-12 09:21] LABS: B-TYPE NATRIURETIC PEPTIDE < 5 pg/mL (0-100)
[2021-02-12] MEDS ORDERED: HYDROCODONE/ACETAMINOPHEN 5/325 MG TAB PO ONE (10:00)
[2021-02-12] MEDS ORDERED: ASPIRIN 325MG TAB PO ONE (10:00)
[2021-02-12 12:06] VITALS: BP 125/74
[2021-02-12] MEDS ORDERED: LIDOCAINE 5% TOPICAL PATCH TP SCH (13:30)
[2021-02-12 13:35] VITALS: BP 135/74
== END 2021-02-12 13:37 | disposition home or self-care (01) ==
LOC: EDH 08:28
DX: R07.89 Other chest pain (principal); R00.2 Palpitations; R11.0 Nausea; M54.2 Cervicalgia; E78.00 Pure hypercholesterolemia, unspecified; I25.119 Atherosclerotic heart disease of native coronary artery with unspecified angina pectoris; Z79.82 Long term (current) use of aspirin; Z79.899 Other long term (current) drug therapy; Z95.5 Presence of coronary angioplasty implant and graft
CPT/HCPCS: 36415; 71045; 80053; 82550; 83880; 84484; 85025; 85378; 85610; 85730; 93005

== ENCOUNTER 2021-05-15 13:13 | Emergency (ER) | payer MEDICAID, OTHER ==
[~2021-05-15] VITALS: Ht 172.7 cm; Wt 107.5 kg
[~2021-05-15 13:13] MED LIST changes: -FLUO20CA35 PO; +FLUO20CA36 PO
[2021-05-15] MEDS ORDERED: ASPIRIN 325MG TAB ONE (13:56)
[2021-05-15] MEDS ORDERED: NITROGLYCERIN 0.4 MG SL TAB SL ONE (13:56)
[2021-05-15 14:00] LABS: BASOPHILS % (AUTO) 0.8 % (0.0-5.0); EOSINOPHILS % (AUTO) 6.4 % (0.0-8.0); HEMATOCRIT 46.5 % (42-54); LYMPHOCYTES % (AUTO) 24.6 % (21.0-51.0); MEAN CORPUSCULAR HEMOGLOBIN 29.9 pg (27.0-33.0); MEAN CORPUSCULAR HGB CONC 33.5 g/dL (32.0-36.0); MEAN CORPUSCULAR VOLUME 89.3 fL (79-99); MONOCYTES % (AUTO) 9.6 % (3.0-13.0); NEUTROPHILS % (AUTO) 58.2 % (40.0-77.0); PLATELET COUNT (AUTO) 189 K/uL (130-400); RED BLOOD CELL COUNT(AUTO) 5.21 MIL/uL (4.50-6.20); RED CELL DISTRIBUTION WIDTH 12.6 % (11.0-15.5); WHITE BLOOD COUNT (AUTO) 5.3 K/uL (4.8-10.8)
[2021-05-15] MEDS ORDERED: ASPIRIN 325MG TAB PO ONE (14:00)
[2021-05-15] MEDS ORDERED: NITROGLYCERIN 0.4 MG SL TAB SL PRN (14:00)
[2021-05-15 14:12] LABS: POTASSIUM 3.9 mmol/L (3.5-5.1)
[2021-05-15 14:13] LABS: INR 1.03 (0.85-1.15); PROTHROMBIN TIME 11.2 SEC (9.6-11.6)
[2021-05-15 14:16] LABS: ALBUMIN 3.6 g/dL (3.5-5.0); BILIRUBIN,TOTAL 0.6 mg/dL (0.2-1.0); TOTAL PROTEIN, SERUM 7.4 g/dL (6.0-8.3)
[2021-05-15 14:37] LABS: B-TYPE NATRIURETIC PEPTIDE 7 pg/mL (0-100)
[2021-05-15 15:41] LABS: AMPHET/METH SCREEN,URINE NEGATIVE (NEGATIVE); BARBITURATE SCREEN, URINE NEGATIVE (NEGATIVE); BENZODIAZEPINES SCREEN,URINE NEGATIVE (NEGATIVE); CANNABINOID SCREEN,URINE NEGATIVE (NEGATIVE); COCAINE SCREEN,URINE NEGATIVE (NEGATIVE); OPIATE SCREEN,URINE NEGATIVE (NEGATIVE); PHENCYCLIDINE SCREEN,URINE NEGATIVE (NEGATIVE)
[2021-05-15 16:04] VITALS: BP 120/70
[2021-05-15] MEDS ORDERED: ASPI-1005 PO (16:48)
== END 2021-05-15 16:59 | disposition home or self-care (01) ==
LOC: EDH 13:13
DX: R07.89 Other chest pain (principal); R06.02 Shortness of breath; F43.10 Post-traumatic stress disorder, unspecified; E78.5 Hyperlipidemia, unspecified; I25.10 Atherosclerotic heart disease of native coronary artery without angina pectoris; Z79.82 Long term (current) use of aspirin; Z79.899 Other long term (current) drug therapy; Z95.5 Presence of coronary angioplasty implant and graft
CPT/HCPCS: 36415; 71046; 80053; 80305; 82550; 83880; 84484; 85025; 85610; 93005

== ENCOUNTER 2021-09-23 09:29 | Emergency (ER) | payer OTHER, MEDICAID ==
[~2021-09-23] VITALS: Ht 172.7 cm; Wt 108.9 kg
[~2021-09-23 09:29] MED LIST changes: +ASPI-1005 PO
[2021-09-23 09:58] LABS: HEMATOCRIT 49.9 % (42-54); MEAN CORPUSCULAR HEMOGLOBIN 30.4 pg (27.0-33.0); MEAN CORPUSCULAR HGB CONC 33.9 g/dL (32.0-36.0); MEAN CORPUSCULAR VOLUME 89.7 fL (79-99); PLATELET COUNT (AUTO) 182 K/uL (130-400); RED BLOOD CELL COUNT(AUTO) 5.56 MIL/uL (4.50-6.20); RED CELL DISTRIBUTION WIDTH 12.7 % (11.0-15.5); WHITE BLOOD COUNT (AUTO) 5.8 K/uL (4.8-10.8)
[2021-09-23 10:01] LABS: POTASSIUM 4.3 mmol/L (3.5-5.1)
[2021-09-23 10:06] LABS: ALBUMIN 3.6 g/dL (3.5-5.0); BILIRUBIN,TOTAL 0.5 mg/dL (0.2-1.0); TOTAL PROTEIN, SERUM 7.6 g/dL (6.0-8.3)
[2021-09-23 10:46] LABS: BASOPHILS % (MANUAL) 1 % (0-2); EOSINOPHILS % (MANUAL) 8 % (1-6); LYMPHOCYTES % (MANUAL) 23 % (22-44); MONOCYTES % (MANUAL) 3 % (2-9); REACTIVE LYMPHOCYTES 2 % (0-0); SEGMENTED NEUTROPHILS % 63 % (40-70)
[2021-09-23 10:47] LABS: MAN.DIFF COMMENT-IMPRESSION MANUAL DIFFERENTIAL; PLATELET MORPHOLOGY COMMENT ADEQUATE
[2021-09-23 15:08] VITALS: BP 126/83
== END 2021-09-23 15:22 | disposition home or self-care (01) ==
LOC: EDH 09:29
DX: M25.511 Pain in right shoulder (principal); F43.10 Post-traumatic stress disorder, unspecified; Z79.82 Long term (current) use of aspirin; Z79.899 Other long term (current) drug therapy; Z90.49 Acquired absence of other specified parts of digestive tract; Z95.5 Presence of coronary angioplasty implant and graft
CPT/HCPCS: 36415; 70450; 71046; 76700; 80053; 83735; 84484; 85025; 85378; 93005

== ENCOUNTER 2022-05-26 13:52 | Emergency (ER) | payer OTHER ==
[~2022-05-26] VITALS: Ht 172.7 cm; Wt 108.9 kg
[2022-05-26 14:11] VITALS: BP 130/85
[2022-05-26 14:38] LABS: APPEARANCE,URINE CLEAR (CLEAR); BILIRUBIN,URINE NEGATIVE (NEGATIVE); COLOR,URINE COLORLESS (YELLOW); GLUCOSE, URINE (UA) NEGATIVE (NEGATIVE); KETONES,URINE NEGATIVE (NEGATIVE); LEUKOCYTE ESTERASE ,URINE NEGATIVE Leu/uL (NEGATIVE); NITRATE,URINE NEGATIVE (NEGATIVE); OCCULT BLOOD,URINE NEGATIVE (NEGATIVE); PH,URINE 5.5 (5.0-8.0); PROTEIN,URINE NEGATIVE (NEGATIVE); UROBILINOGEN,URINE 0.2 mg/dL (0.2-1.0)
[2022-05-26 14:40] LABS: WBC,URINE 0-1 /HPF (0-1)
[2022-05-26 15:30] LABS: BASOPHILS % (AUTO) 0.9 % (0.0-5.0); EOSINOPHILS % (AUTO) 6.4 % (0.0-8.0); HEMATOCRIT 50.4 % (42-54); LYMPHOCYTES % (AUTO) 27.5 % (21.0-51.0); MEAN CORPUSCULAR HEMOGLOBIN 30.5 pg (27.0-33.0); MEAN CORPUSCULAR HGB CONC 33.1 g/dL (32.0-36.0); MONOCYTES % (AUTO) 8.1 % (3.0-13.0); NEUTROPHILS % (AUTO) 56.8 % (40.0-77.0); PLATELET COUNT (AUTO) 184 K/uL (130-400); RED BLOOD CELL COUNT(AUTO) 5.48 MIL/uL (4.50-6.20); WHITE BLOOD COUNT (AUTO) 6.4 K/uL (4.8-10.8)
[2022-05-26 15:39] LABS: POTASSIUM 4.2 mmol/L (3.5-5.1)
[2022-05-26 15:46] LABS: ALBUMIN 3.8 g/dL (3.5-5.0); TOTAL PROTEIN, SERUM 7.5 g/dL (6.0-8.3)
[2022-05-26] MEDS ORDERED: POLY17PO4 PO (17:53)
== END 2022-05-26 18:03 | disposition home or self-care (01) ==
LOC: EDH 13:52
DX: K59.00 Constipation, unspecified (principal); I51.9 Heart disease, unspecified; M19.90 Unspecified osteoarthritis, unspecified site; Z79.82 Long term (current) use of aspirin; Z79.899 Other long term (current) drug therapy; Z90.49 Acquired absence of other specified parts of digestive tract; Z95.5 Presence of coronary angioplasty implant and graft
CPT/HCPCS: 36415; 74176; 80053; 81001; 83690; 84484; 85025; 93005

== ENCOUNTER 2022-08-02 01:13 | Emergency (ER) | payer OTHER ==
[~2022-08-02] VITALS: Ht 172.7 cm; Wt 104.3 kg
[~2022-08-02 01:13] MED LIST changes: +POLY17PO4 PO
[2022-08-02] MEDS ORDERED: 0.9%NACL 1000ML 1,000 ML IV ONE (01:30)
[2022-08-02] MEDS ORDERED: SOLU-MEDROL 125MG VIAL IVP ONE (01:30)
[2022-08-02 01:48] LABS: BASOPHILS % (AUTO) 0.4 % (0.0-5.0); EOSINOPHILS % (AUTO) 3.1 % (0.0-8.0); HEMATOCRIT 49.2 % (42-54); LYMPHOCYTES % (AUTO) 17.5 % (21.0-51.0); MEAN CORPUSCULAR HEMOGLOBIN 30.4 pg (27.0-33.0); MEAN CORPUSCULAR HGB CONC 34.1 g/dL (32.0-36.0); MEAN CORPUSCULAR VOLUME 89.1 fL (79-99); NEUTROPHILS % (AUTO) 72.7 % (40.0-77.0); PLATELET COUNT (AUTO) 184 K/uL (130-400); RED BLOOD CELL COUNT(AUTO) 5.52 MIL/uL (4.50-6.20); RED CELL DISTRIBUTION WIDTH 12.9 % (11.0-15.5); WHITE BLOOD COUNT (AUTO) 6.7 K/uL (4.8-10.8)
[2022-08-02 02:20] LABS: ALBUMIN 3.1 g/dL (3.5-5.0); CREATININE 1.1 mg/dL (0.5-1.5); POTASSIUM 5.2 mmol/L (3.5-5.1); TOTAL PROTEIN, SERUM 6.9 g/dL (6.0-8.3)
[2022-08-02] MEDS ORDERED: ONDANSETRON 4MG INJ IVP ONE (03:00)
[2022-08-02] MEDS ORDERED: CEFTRIAXONE 1G VIAL IVP ONE (03:00)
[2022-08-02 03:08] VITALS: BP 105/62
[2022-08-02] MEDS ORDERED: FLUT16H NASAL (03:42)
[2022-08-02] MEDS ORDERED: AMOX-426 PO (03:42)
== END 2022-08-02 03:50 | disposition home or self-care (01) ==
LOC: EDH 01:13
DX: J32.9 Chronic sinusitis, unspecified (principal); R51.9 Headache, unspecified; M19.90 Unspecified osteoarthritis, unspecified site; Z79.899 Other long term (current) drug therapy; Z79.82 Long term (current) use of aspirin; Z90.49 Acquired absence of other specified parts of digestive tract; Z98.890 Other specified postprocedural states; Z95.5 Presence of coronary angioplasty implant and graft
CPT/HCPCS: 99285; 96374; 70450; 96375; 84484; 80053; 85025; 36415; 93005; J2930; J0696; J2405

== ENCOUNTER 2023-04-21 14:48 | Emergency (ER) | payer OTHER ==
[~2023-04-21] VITALS: Ht 172.7 cm; Wt 99.8 kg
[~2023-04-21 14:48] MED LIST changes: +AMOX-426 PO; +FLUT16H NASAL
[2023-04-21 15:45] LABS: BASOPHILS # (AUTO) 0.04 K/uL (0.00-0.20); BASOPHILS % (AUTO) 0.6 % (0.0-5.0); EOSINOPHILS # (AUTO) 0.21 K/uL (0.00-0.70); EOSINOPHILS % (AUTO) 2.9 % (0.0-8.0); HEMATOCRIT 52.3 % (42-54); IMMATURE GRANULOCYTE ABSOLUTE 0.03 K/uL (0-1); LYMPHOCYTES # (AUTO) 1.6 K/uL (1.0-4.8); LYMPHOCYTES % (AUTO) 22.5 % (21.0-51.0); MEAN CORPUSCULAR HEMOGLOBIN 31.2 pg (27.0-33.0); MEAN CORPUSCULAR HGB CONC 33.7 g/dL (32.0-36.0); MEAN CORPUSCULAR VOLUME 92.7 fL (79-99); MONOCYTES # (AUTO) 0.6 K/uL (0.1-1.0); MONOCYTES % (AUTO) 7.9 % (3.0-13.0); NEUTROPHILS # (AUTO) 4.7 K/uL (1.8-7.7); NEUTROPHILS % (AUTO) 65.7 % (40.0-77.0); PLATELET COUNT (AUTO) 197 K/uL (130-400); RED BLOOD CELL COUNT(AUTO) 5.64 MIL/uL (4.50-6.20); RED CELL DISTRIBUTION WIDTH 13.1 % (11.0-15.5); WHITE BLOOD COUNT (AUTO) 7.2 K/uL (4.8-10.8)
[2023-04-21 16:04] LABS: CREATININE 1.1 mg/dL (0.5-1.5); POTASSIUM 4.1 mmol/L (3.5-5.1)
[2023-04-21 16:09] LABS: ALBUMIN 3.6 g/dL (3.5-5.0); BILIRUBIN,TOTAL 0.6 mg/dL (0.2-1.0); TOTAL PROTEIN, SERUM 7.9 g/dL (6.0-8.3)
[2023-04-21 18:06] VITALS: BP 119/79; PULSE 78; RESP 18; O2SAT 97
[2023-04-21 18:26] LABS: SARS-CoV-2, RNA, NAAT NEGATIVE SARS CoV-2 (NEGATIVE)
[2023-04-21 18:39] LABS: INFLUENZA TYPE A Positive For Type A (NEGATIVE); INFLUENZA TYPE B Positive For Type B (NEGATIVE)
[2023-04-21] MEDS ORDERED: OSELTAMIVIR PHOSPHATE 75 MG CAP PO ONE (19:00)
[2023-04-21] MEDS ORDERED: OSEL75 PO (19:41)
== END 2023-04-21 20:11 | disposition home or self-care (01) ==
LOC: EDH 14:48
DX: J10.1 Influenza due to other identified influenza virus with other respiratory manifestations (principal); F32.A Depression, unspecified; Z20.822 Contact with and (suspected) exposure to COVID-19; Z90.49 Acquired absence of other specified parts of digestive tract
CPT/HCPCS: 99285; 71045; 87635; 84484 ×2; 80053; 85025; 87804 ×2; 36415; 93005 ×3; C9803

== ENCOUNTER 2024-02-19 13:41 | Emergency (ER) | payer OTHER ==
[~2024-02-19] VITALS: Ht 172.7 cm; Wt 99.8 kg
[~2024-02-19 13:41] MED LIST changes: +AEC81 PO; -AMOX-426 PO; -ASPI-1005 PO; -ASPI-556 PO; -ATOR20TA65 PO; +ATOR40TA69 PO; -CLOP75TA32 PO; -FLUO20CA36 PO; -FLUT16H NASAL; -LEVE-43 PO; -METO25 PO; -NITR0.4T50 SL; -Nitroglycerin 0.4MG Sl Tab SL; -PANT40TA PO; -POLY17PO4 PO; -TAMS-1 PO
[2024-02-19 14:08] LABS: BASOPHILS # (AUTO) 0.03 K/uL (0.00-0.20); BASOPHILS % (AUTO) 0.5 % (0.0-5.0); EOSINOPHILS # (AUTO) 0.11 K/uL (0.00-0.70); HEMATOCRIT 46.1 % (42-54); IMMATURE GRANULOCYTE ABSOLUTE 0.02 K/uL (0-1); LYMPHOCYTES # (AUTO) 1.3 K/uL (1.0-4.8); LYMPHOCYTES % (AUTO) 22.6 % (21.0-51.0); MEAN CORPUSCULAR HEMOGLOBIN 30.7 pg (27.0-33.0); MEAN CORPUSCULAR HGB CONC 34.1 g/dL (32.0-36.0); MONOCYTES # (AUTO) 0.5 K/uL (0.1-1.0); MONOCYTES % (AUTO) 8.9 % (3.0-13.0); NEUTROPHILS # (AUTO) 3.7 K/uL (1.8-7.7); NEUTROPHILS % (AUTO) 65.6 % (40.0-77.0); PLATELET COUNT (AUTO) 211 K/uL (130-400); RED BLOOD CELL COUNT(AUTO) 5.12 MIL/uL (4.50-6.20); RED CELL DISTRIBUTION WIDTH 12.8 % (11.0-15.5); WHITE BLOOD COUNT (AUTO) 5.6 K/uL (4.8-10.8)
[2024-02-19 14:19] LABS: CREATININE 0.9 mg/dL (0.5-1.3)
[2024-02-19 14:24] LABS: ALBUMIN 3.5 g/dL (3.5-5.0); BILIRUBIN,TOTAL 0.6 mg/dL (0.2-1.0); TOTAL PROTEIN, SERUM 7.3 g/dL (6.0-8.3)
[2024-02-19] MEDS: 0.9%NACL 1000ML 1,000 ML IV ONE (14:30)
[2024-02-19] MEDS: diazePAM 5 MG/ML 2 ML SYG IV ONE (14:31)
[2024-02-19] MEDS: ketOROlac 30MG VIAL (30MG/ML) IVP ONE (14:31)
[2024-02-19 14:45] LABS: APPEARANCE,URINE CLEAR (CLEAR); BILIRUBIN,URINE NEGATIVE (NEGATIVE); COLOR,URINE LIGHT-YELLOW (YELLOW); GLUCOSE, URINE (UA) NEGATIVE (NEGATIVE); KETONES,URINE NEGATIVE (NEGATIVE); LEUKOCYTE ESTERASE ,URINE NEGATIVE Leu/uL (NEGATIVE); NITRATE,URINE NEGATIVE (NEGATIVE); OCCULT BLOOD,URINE NEGATIVE (NEGATIVE); PROTEIN,URINE NEGATIVE (NEGATIVE)
[2024-02-19 14:50] LABS: ADD UA MICROSCOPIC YES
[2024-02-19 14:51] LABS: RBC,URINE 0-1 /HPF (0-1); WBC,URINE 0-1 /HPF (0-1)
[2024-02-19] MEDS: morPHINE 2 MG SYG IVP ONE (16:19)
[2024-02-19] MEDS: ONDANSETRON 4MG INJ IVP ONE (16:20)
[2024-02-19] MEDS: morPHINE 2 MG SYG ONE (16:22)
[2024-02-19 16:30] LABS: COVID19 (SARS ANTIGEN RAPID) PRESUMPTIVE NEGATIVE (NEGATIVE)
[2024-02-19 16:39] LABS: INFLUENZA TYPE A Positive For Type A (NEGATIVE); INFLUENZA TYPE B Positive For Type B (NEGATIVE)
[2024-02-19] MEDS: OSELTAMIVIR PHOSPHATE 75 MG CAP PO ONE (16:53)
[2024-02-19] MEDS ORDERED: OSEL75 PO (17:00)
[2024-02-19 17:15] VITALS: BP 126/68; PULSE 72; RESP 18; TEMP 98.1; O2SAT 98
== END 2024-02-19 17:23 | disposition home or self-care (01) ==
LOC: EDH 13:41
DX: J10.1 Influenza due to other identified influenza virus with other respiratory manifestations (principal); Z20.822 Contact with and (suspected) exposure to COVID-19; M54.9 Dorsalgia, unspecified; R42 Dizziness and giddiness; E78.00 Pure hypercholesterolemia, unspecified; G20.A1 Parkinson's disease without dyskinesia, without mention of fluctuations; F32.A Depression, unspecified; I10 Essential (primary) hypertension; I25.10 Atherosclerotic heart disease of native coronary artery without angina pectoris; Z90.49 Acquired absence of other specified parts of digestive tract; Z95.5 Presence of coronary angioplasty implant and graft; Z79.899 Other long term (current) drug therapy; Z79.82 Long term (current) use of aspirin
CPT/HCPCS: 99284; 96374; 96375; 96361; 87426; 84484; 80053; 85025; 87804 ×2; 81001; 36415; 93005; J2270; J7030; J3360; J2405; J1885

== ENCOUNTER 2024-03-11 22:12 | Emergency (ER) | payer OTHER ==
[~2024-03-11] VITALS: Ht 172.7 cm; Wt 99.8 kg
[2024-03-11 22:13] VITALS: BP 125/75; PULSE 89; RESP 16; TEMP 97.9
[2024-03-11 23:49] LABS: AMPHET/METH SCREEN,URINE NEGATIVE (NEGATIVE); BARBITURATE SCREEN, URINE NEGATIVE (NEGATIVE); BENZODIAZEPINES SCREEN,URINE NEGATIVE (NEGATIVE); CANNABINOID SCREEN,URINE NEGATIVE (NEGATIVE); COCAINE SCREEN,URINE NEGATIVE (NEGATIVE); OPIATE SCREEN,URINE NEGATIVE (NEGATIVE); PHENCYCLIDINE SCREEN,URINE NEGATIVE (NEGATIVE)
[2024-03-11 23:51] LABS: BASOPHILS # (AUTO) 0.04 K/uL (0.00-0.20); BASOPHILS % (AUTO) 0.7 % (0.0-5.0); EOSINOPHILS # (AUTO) 0.32 K/uL (0.00-0.70); EOSINOPHILS % (AUTO) 5.4 % (0.0-8.0); IMMATURE GRANULOCYTE ABSOLUTE 0.01 K/uL (0-1); LYMPHOCYTES # (AUTO) 1.8 K/uL (1.0-4.8); MEAN CORPUSCULAR VOLUME 91.3 fL (79-99); MONOCYTES # (AUTO) 0.5 K/uL (0.1-1.0); MONOCYTES % (AUTO) 8.2 % (3.0-13.0); NEUTROPHILS # (AUTO) 3.3 K/uL (1.8-7.7); NEUTROPHILS % (AUTO) 55.5 % (40.0-77.0); PLATELET COUNT (AUTO) 201 K/uL (130-400); RED BLOOD CELL COUNT(AUTO) 4.93 MIL/uL (4.50-6.20); RED CELL DISTRIBUTION WIDTH 12.8 % (11.0-15.5)
[2024-03-12 00:02] LABS: APPEARANCE,URINE CLEAR (CLEAR); BILIRUBIN,URINE NEGATIVE (NEGATIVE); COLOR,URINE LIGHT-YELLOW (YELLOW); GLUCOSE, URINE (UA) NEGATIVE (NEGATIVE); KETONES,URINE NEGATIVE (NEGATIVE); LEUKOCYTE ESTERASE ,URINE NEGATIVE Leu/uL (NEGATIVE); NITRATE,URINE NEGATIVE (NEGATIVE); OCCULT BLOOD,URINE NEGATIVE (NEGATIVE); PH,URINE 6.5 (5.0-8.0); PROTEIN,URINE NEGATIVE (NEGATIVE); UROBILINOGEN,URINE 0.2 mg/dL (0.2-1.0)
[2024-03-12 00:06] LABS: CREATININE 1.4 mg/dL (0.5-1.3); POTASSIUM 3.9 mmol/L (3.5-5.1)
[2024-03-12 00:23] LABS: ADD UA MICROSCOPIC NO
[2024-03-12] MEDS ORDERED: TRIAMCINOLONE ACETONIDE 40 MG/ML 1ML VIAL IM ONE (00:30)
[2024-03-12] MEDS ORDERED: ORPHENADRINE 60MG/2ML IM ONE (00:30)
== END 2024-03-12 00:07 | disposition left against medical advice (07) ==
LOC: EDH 22:12
DX: G89.29 Other chronic pain (principal); M54.9 Dorsalgia, unspecified; E78.00 Pure hypercholesterolemia, unspecified; G20.A1 Parkinson's disease without dyskinesia, without mention of fluctuations; Z79.82 Long term (current) use of aspirin; Z90.49 Acquired absence of other specified parts of digestive tract; Z95.5 Presence of coronary angioplasty implant and graft
CPT/HCPCS: 36415; 71045; 80048; 80305; 81003; 82550; 83735; 84484; 85025; 93005

== ENCOUNTER 2024-08-10 13:20 | Emergency (ER) | payer OTHER ==
[~2024-08-10] VITALS: Ht 172.7 cm; Wt 87.1 kg
--- NOTE | 2024-08-10 13:42 | EKG ---
[facility] Test Date: 2024-08-10 Test Time: 13:34:15 Pat Name: HARSHAL OSORIO Department: [facility] Room: Gender: M Bridge Builder: 08 : 1965 Requested By: STANLEY ALCANTARA Order Number: [id number] Reading MD: Steph Gamboa Measurements Intervals [place] Rate: 82 P: 71 OK: 169 QRS: 15 QRSD: 92 T: 58 QT: 381 QTc: 444 Interpretive Statements Sinus rhythm Compared to ECG 03/11/2024 23:14:50 ST (T wave) deviation no longer present Electronically Signed On 08-11-2024 14:34:20 VISITOR SERVICES TECHNICIAN by Steph Gamboa Please click the below link to view image of tracing.
[2024-08-10 14:28] LABS: BASOPHILS # (AUTO) 0.05 K/uL (0.00-0.20); BASOPHILS % (AUTO) 0.8 % (0.0-5.0); EOSINOPHILS # (AUTO) 0.16 K/uL (0.00-0.70); EOSINOPHILS % (AUTO) 2.6 % (0.0-8.0); HEMATOCRIT 49.3 % (42-54); IMMATURE GRANULOCYTE ABSOLUTE 0.01 K/uL (0-1); LYMPHOCYTES # (AUTO) 1.4 K/uL (1.0-4.8); LYMPHOCYTES % (AUTO) 23.6 % (21.0-51.0); MEAN CORPUSCULAR HEMOGLOBIN 31.2 pg (27.0-33.0); MEAN CORPUSCULAR HGB CONC 33.3 g/dL (32.0-36.0); MEAN CORPUSCULAR VOLUME 93.7 fL (79-99); MONOCYTES # (AUTO) 0.5 K/uL (0.1-1.0); MONOCYTES % (AUTO) 7.9 % (3.0-13.0); NEUTROPHILS % (AUTO) 64.9 % (40.0-77.0); PLATELET COUNT (AUTO) 219 K/uL (130-400); RED BLOOD CELL COUNT(AUTO) 5.26 MIL/uL (4.50-6.20); WHITE BLOOD COUNT (AUTO) 6.1 K/uL (4.8-10.8)
--- NOTE | 2024-08-10 14:30 | ERN ---
General Chief Complaint: Multiple Complaints Stated Complaint: FEELING UNWELL Time Seen by MD: 13:21 Time Seen by Midlevel: 13:21 Source: patient History of Present Illness Initial Comments The patient is a 58-year-old male with a past medical history of Parkinson's presenting to the emergency department complaining of muscle tremors that has been getting worse over the course of six months. He also reports chronic back pain. 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 She also reports polyuria. He was diagnosed with Parkinson's two years ago however declined taking any medication for it because of side effects. He was followed by neurologist Dr. Coulter Allergies: Coded Allergies: No Known Drug Allergies (Verified Allergy, Unknown, 07/10/17) No Known Food Allergies (Unverified Allergy, Unknown, 04/17/19) Home Meds Active Scripts Oseltamivir Phosphate (Tamiflu) 75 Mg Cap, 75 MG PO BID for 5 Days, #10 CAP Prov:ANDREINA DELA CRUZ MD 02/19/24 Oseltamivir Phosphate (Tamiflu) 75 Mg Cap, 75 MG PO BID, #7 CAP 0 Refills Prov:RODRIGO HEATH MD 09/20/23 Atorvastatin Calcium (LIPITOR) 40 Mg Tablet, 40 MG PO HS for 30 Days, #30 TAB 1 Refill Prov:RODRIGO HEATH MD 09/20/23 Aspirin (ASPIRIN 81 MG ECTAB) 81 Mg Ectab, 81 MG PO DAILY for 30 Days, #30 TAB.EC 1 Refill Prov:RODRIGO HEATH MD 09/20/23 Past Medical History Past Medical History: Depression, High Cholesterol, Heart Disease, Prostatitis, Other Medical History Other: PARKINSONS, PTSD Past Surgical History: Appendectomy, Cholecystectomy Surgical History Other: HEART STENT Social History Social History: Negative, Lives with family ROS Dictation CONSTITUTIONAL: Negative except for HPI HEAD/FACE: Negative except for HPI EENT: Negative except for HPI RESPIRATORY: Negative except for HPI GASTROINTESTINAL/ABDOMINAL: Negative except for HPI GENITOURINARY: Negative except for HPI MUSCULOSKELETAL: Negative except for HPI INTEGUMENTARY: Negative except for HPI NEUROLOGICAL/PSYCH: Negative except for HPI HEMATOLOGIC/LYMPHATIC: Negative except for HPI All Systems Negative, Except as noted above. 13 point review of systems assessed and all negative except for above. Physical Exam Physical Exam Dictation Vital Signs reviewed General Appearance: Alert, oriented x 3, no acute distress, well developed, nourished. Head and Face: non-traumatic. Eyes: PERRL, pink conjunctivas, eyelid no trauma, anterior chamber with arcus senilis. Ears: Pinnas intact and no signs of trauma or erythema ear canals clear and no discharge TM no erythema Nose: No discharge, no bleeding. Oropharynx: Mouth normal, tongue pink, pharynx clear,no erythema, tonsils no exudates, no abscesses noted, mucous membrane moist Neck: Supple, non-tender, no thyromegaly, no masses, no JVD, no bruits Breast:Deferred Chest:No tenderness, no crepitus, no paradoxical movement, no retractions Lungs:Clear, well-ventilated, symmetric, no rales, no wheezing, no rhonchi, no stridor, good breath sounds bilaterally Heart: Regular rate, regular rhythm, no murmur, no gallops Vascular: no peripheral edema, Abdomen: Soft, positive bowel sounds, nondistended, no guarding, nontender, no rebound, no masses no hepatomegaly, no splenomegaly, no Jules's sign, no hernias. Rectal: Deferred Genital: Deferred Neurological: Normal speech, motor function intact, sensory function intact Musculoskeletal: Neck nontender, full range of motion, back nontender, full range of motion, Extremities: nontender, full range of motion Skin: Color pink, dry, no turgor, no rash, no lacerations, no abrasions, no contusions. Lymphatic: Deferred Results Laboratory and Microbiology Lab and Micro Result Laboratory Tests Test 08/10/24 14:16 08/10/24 15:46 White Blood Count 6.1 K/uL (4.8-10.8) Red Blood Count 5.26 MIL/uL (4.50-6.20) Hemoglobin 16.4 g/dL (14.0-18.0) Hematocrit 49.3 % (42-54) Mean Corpuscular Volume 93.7 fL (79-99) Mean Corpuscular Hemoglobin 31.2 pg (27.0-33.0) Mean Corpuscular Hemoglobin Concent 33.3 g/dL (32.0-36.0) Red Cell Distribution Width 13.0 % (11.0-15.5) Platelet Count 219 K/uL (130-400) Mean Platelet Volume 10.6 fL (7.5-10.5) H Immature Granulocyte % (Auto) 0.2 % (0-1) Neutrophils (%) (Auto) 64.9 % (40.0-77.0) Lymphocytes (%) (Auto) 23.6 % (21.0-51.0) Monocytes (%) (Auto) 7.9 % (3.0-13.0) Eosinophils (%) (Auto) 2.6 % (0.0-8.0) Basophils (%) (Auto) 0.8 % (0.0-5.0) Neutrophils # (Auto) 4.0 K/uL (1.8-7.7) Lymphocytes # (Auto) 1.4 K/uL (1.0-4.8) Monocytes # (Auto) 0.5 K/uL (0.1-1.0) Eosinophils # (Auto) 0.16 K/uL (0.00-0.70) Basophils # (Auto) 0.05 K/uL (0.00-0.20) Absolute Immature Granulocyte (auto 0.01 K/uL (0-1) Nucleated Red Blood Cells 0.0 % (0.0-0.19) Sodium Level 138 mmol/L (136-145) Potassium Level 4.1 mmol/L (3.5-5.1) Chloride Level 99 mmol/L (101-111) L Carbon Dioxide Level 34 mmol/L (21-32) H Blood Urea Nitrogen 13 mg/dL (7-18) Creatinine 1.1 mg/dL (0.5-1.3) Glomerular Filtration Rate Calc 79 mL/min (>90) Random Glucose 93 mg/dL (70-105) Total Calcium 9.4 mg/dL (8.5-10.1) Troponin I High Sensitivity < 4 ng/L (4-75) L Urine Color LIGHT-YELLOW (YELLOW) Urine Appearance CLEAR (CLEAR) Urine pH 6.5 (5.0-8.0) Urine Specific [place] 1.019 (1.001-1.031) Urine Protein NEGATIVE mg/dL (NEGATIVE) Urine Glucose (UA) NEGATIVE mg/dL (NEGATIVE) Urine Ketones NEGATIVE mg/dL (NEGATIVE) Urine Occult Blood NEGATIVE (NEGATIVE) Urine Nitrate NEGATIVE (NEGATIVE) Urine Bilirubin NEGATIVE mg/dL (NEGATIVE) Urine Urobilinogen 0.2 mg/dL (0.2-1.0) Urine Leukocyte Esterase NEGATIVE [place]/uL Urine RBC None /HPF (0-1) Urine WBC 0-1 /HPF (0-1) Urine Squamous Epithelial Cells RARE /HPF (0-2) Urine Bacteria None /HPF (None Seen) Labs Reviewed?: Yes EKG/XRAY/US/CT/MRI EKG Comment Date:08/10/24 Time:1334 Ventricular rate:82 MS interval:169 QRS duration:15 QT/QTc:381/444 EKG interpretation: Sinus rhythm Reviewed by ED Attending no STEMI interpreted by ER MD X-RAY Comment [facility] [address] [place] [address] IMAGING REPORT Signed PATIENT: HARSHAL OSORIO MR#: [id number] : 1965 SEX: M AGE: 58 LOCATION: [facility] ORDER 1331 STATUS: REG ER REPORT#: [id number] SERVICE [id number] REASON: cp/backpain ORDERING PHYSICIAN: STANLEY ALCANTARA PROCEDURE: CXR1VW - CHEST 1VW PORTABLE CHEST RADIOGRAPH INDICATION: cp/backpain COMPARISON: 03/11/2024 FINDINGS: Heart size is normal. The pulmonary vascularity and jerod appear normal. No abnormal pulmonary parenchymal opacity or consolidation identified. No significant pleural effusion noted. No pneumothorax detected. IMPRESSION: No radiographic evidence for any acute cardiopulmonary process. DICTATED BY: FREDO YU MD DATE: 08/10/24 1501 ELECTRONICALLY SIGNED BY: FREDO YU MD DATE: 08/10/24 1505 [facility] MDM: Blood work unremarkable. Chest x-ray unremarkable. Discussed with the patient that he needs to follow up with PCP regarding his chronic back pain and regarding his Parkinson's. Patient states he refuses to take his Parkinson medication. She does not trust the system. He also verbalized some concerns regarding prostate cancer. Advised patient that [facility] needs [facility] so [facility] can address it and have some cancer markers. Patient verbalized understanding, as so spoke to spouse over the phone in regards to the same concern. Both verbalized understanding, answered all questions. Differential diagnosis: Parkinson's, chronic back pain, pneumonia Rationale: Tests considered and ordered secondary to shared decision making include: Previous outside records reviewed: Old ER visits. Risk of complication and/or morbidity or mortality of patient management: None Medications-Per medication reconciliation Need for hospitalization: Patient does not meet criteria for hospitalization. Need for emergency major/minor surgery: No There are no social concerns with this patient. Prescription drug management Prescriptions will include symptomatic care Patient's prior external medical records from other ER visits were reviewed by me as indicated. Prior testing and results from previous visits were reviewed. Prior tests were taken into account with medical decision making and resource utilization, independent historian/historians were used to obtain complete medical history. I independently interpreted the test that were performed, results were reviewed by me and considered findings on radiology if ordered. Medical management and examination interpretation discussions were had by me with other qualified healthcare professionals as indicated for the patient's care. ED Course Orders Procedure Category Date Status Time Cbc With Differential LAB 08/10/24 Complete 13:29 Basic Metabolic Panel LAB 08/10/24 Complete 13:29 Urinalysis Profile LAB 08/10/24 Complete 13:29 Troponin I High LAB 08/10/24 Complete Sensitivity 13:29 Chest 1vw RAD 08/10/24 Resulted 13:29 12 Lead Ekg Tracing- EKG 08/10/24 Complete Technical 13:29 Ketorolac PHA 08/10/24 Complete Tromethamine 30mg/Ml 16:30 Current Medications Medications (Trade) Dose Ordered Sig/Kenzie Route PRN Reason Start Time Stop Time Status Last Admin Dose Admin Ketorolac Tromethamine (toRADol) 30 mg ONCE ONCE IM 08/10/24 16:30 08/10/24 16:31 DC 08/10/24 17:04 Vital Signs Date Time Temp Pulse Resp B/P (MAP) Pulse Ox O2 Delivery O2 Flow Rate FiO2 08/10/24 16:14 98.2 75 18 120/84 97 Room Air* 0 21 08/10/24 13:25 98.2 75 18 120/84 97 Room Air 0 DX & DISP Disposition: Discharge Departure Impression: Primary Impression: Chronic back pain greater than 3 months duration Additional Impression: Parkinson disease Condition: Stable Scripts Lidocaine (Lidocaine Pain Relief) 4 % Adh..patch 1 PATCH TP DAILY for 10 Days, #10 PATCH 0 Refills Prov: TRISTON OSORIO NP 08/10/24 Additional Instructions: [facility] regarding your concerns for muscle tremors, chronic back pain. Return to the emergency room if any worsening symptoms. Referrals: KINGSTON SANTIAGO MD (PCP) Time of Disposition: 17:11 I have reviewed the case, and I agree with, Diagnosis and Plan STANLEY ALCANTARA Aug 10, 2024 14:30 TRISTON OSORIO NP Aug 10, 2024 17:16
[2024-08-10 14:57] LABS: CREATININE 1.1 mg/dL (0.5-1.3); POTASSIUM 4.1 mmol/L (3.5-5.1)
--- NOTE | 2024-08-10 15:05 | HMCIMG ---
PORTABLE CHEST RADIOGRAPH INDICATION: cp/backpain COMPARISON: 03/11/2024 FINDINGS: Heart size is normal. The pulmonary vascularity and jerod appear normal. No abnormal pulmonary parenchymal opacity or consolidation identified. No significant pleural effusion noted. No pneumothorax detected. IMPRESSION: No radiographic evidence for any acute cardiopulmonary process.
[2024-08-10 16:02] LABS: APPEARANCE,URINE CLEAR (CLEAR); BILIRUBIN,URINE NEGATIVE (NEGATIVE); COLOR,URINE LIGHT-YELLOW (YELLOW); GLUCOSE, URINE (UA) NEGATIVE (NEGATIVE); KETONES,URINE NEGATIVE (NEGATIVE); LEUKOCYTE ESTERASE ,URINE NEGATIVE Leu/uL (NEGATIVE); NITRATE,URINE NEGATIVE (NEGATIVE); OCCULT BLOOD,URINE NEGATIVE (NEGATIVE); PH,URINE 6.5 (5.0-8.0); PROTEIN,URINE NEGATIVE (NEGATIVE); UROBILINOGEN,URINE 0.2 mg/dL (0.2-1.0)
[2024-08-10 16:03] LABS: ADD UA MICROSCOPIC YES; MUCUS,URINE RARE LPF (None Seen); SQUAMOUS EPITHELIAL CELL,UR RARE /HPF (0-2); WBC,URINE 0-1 /HPF (0-1)
[2024-08-10 16:14] VITALS: BP 120/84; PULSE 75; RESP 18; TEMP 98.2; O2SAT 97
[2024-08-10] MEDS: ketOROlac 30MG VIAL (30MG/ML) IM ONE (17:04)
[2024-08-10] MEDS ORDERED: LIDO1ADH71 TP (17:12)
== END 2024-08-10 17:51 | disposition home or self-care (01) ==
LOC: EDH 13:20
DX: G89.29 Other chronic pain (principal); M54.50 Low back pain, unspecified; G20.A1 Parkinson's disease without dyskinesia, without mention of fluctuations; E78.00 Pure hypercholesterolemia, unspecified; F32.A Depression, unspecified; Z79.82 Long term (current) use of aspirin; Z90.49 Acquired absence of other specified parts of digestive tract; Z95.5 Presence of coronary angioplasty implant and graft
CPT/HCPCS: 99285; 71045; 84484; 80048; 85025; 81001; 36415; 96372; 93005; J1885

== ENCOUNTER 2024-08-20 23:10 | Emergency (ER) | payer OTHER ==
[~2024-08-20] VITALS: Ht 170.2 cm; Wt 87.1 kg
[~2024-08-20 23:10] MED LIST changes: +LIDO1ADH71 TP
--- NOTE | 2024-08-21 00:28 | HMCIMG ---
CT HEAD/BRAIN W/O CONTRAST HISTORY: Fall COMPARISON: None TECHNIQUE: Multiple sequential axial images of the head were obtained from the base of the skull through vertex. Patient was not given contrast through intravenous route. FINDINGS: The ventricles and extraventricular CSF spaces are nondilated for patient's age. There is no midline shift, mass effect or herniation. No acute intracranial bleed is seen. Visualized portion of the paranasal sinuses are grossly within normal limits. IMPRESSION: 1. No acute intracranial bleed is seen. CT was performed with one or more following dose reduction techniques: automated exposure control, adjustment of the mA and kv according to patient's size, or use of a iterative reconstruction technique.
[2024-08-21] MEDS: acetaMINOPHEN 500 MG TABLET PO ONE (00:32)
--- NOTE | 2024-08-21 00:34 | HMCIMG ---
CT CERVICAL SPINE W/O CONTRAST HISTORY: Fall COMPARISON: None TECHNIQUE: Multiple sequential axial images of the cervical spine were obtained including post processing sagittal and coronal reconstruction images. Patient was not given contrast through intravenous route. FINDINGS: There is straightening of normal lordotic cervical curvature which may be related to muscle spasm or positioning. There is no loss of vertebral height. Evaluation for disc and cord pathology is limited with CT study. No evidence of fracture or dislocation is seen. IMPRESSION: 1. No fracture is seen. CT was performed with one or more following dose reduction techniques: automated exposure control, adjustment of the mA and kv according to patient's size, or use of a iterative reconstruction technique.
--- NOTE | 2024-08-21 00:44 | HMCIMG ---
CT LUMBAR SPINE W/O CONTRAST HISTORY: Fall COMPARISON: None TECHNIQUE: Multiple sequential axial images of the lumbar spine were obtained including post processing sagittal and coronal reconstruction images. Patient was not given contrast through intravenous route. FINDINGS: There are degenerative changes with spondylosis. Spondylotic discs with disc protrusions are seen at L3-4, L4-5 and L5-S1 causing central canal narrowing. There is no loss of vertebral height. Evaluation for disc and cord pathology is limited with CT study. No evidence of fracture or dislocation is seen. IMPRESSION: 1. No fracture is seen. 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 CT was performed with one or more following dose reduction techniques: automated exposure control, adjustment of the mA and kv according to patient's size, or use of a iterative reconstruction technique.
[2024-08-21] MEDS ORDERED: CYCL10TA16 PO (01:18)
[2024-08-21] MEDS ORDERED: LIDO1ADH82 TP (01:18)
[2024-08-21] MEDS ORDERED: IBUP-2070 PO (01:18)
--- NOTE | 2024-08-21 01:19 | ERN ---
ED Note History of Present Illness Stated Complaint: FALL Chief Complaint: Mechanical Fall Time Seen by MD: 23:28 Time Seen by Midlevel: 23:28 Dictation: The patient is a 58-year-old male with history of Parkinson's, PTSD, cholecystectomy who presents to the emergency department after an accidental slip and fall onset 6:30 p.m. on 08/20/24. Patient reports he landed on his butt ocks and then fell backwards hitting his head. Patient denies any LOC, nausea or vomiting, use of blood thinners. Patient currently reports neck pain, low back pain. Patient does have a history of chronic low back pain. Allergies: Coded Allergies: No Known Drug Allergies (Verified Allergy, Unknown, 07/10/17) No Known Food Allergies (Unverified Allergy, Unknown, 04/17/19) Home Meds Active Scripts Lidocaine (Lidocaine Pain Relief) 4 % Adh..patch, 1 PATCH TP DAILY for 10 Days, #10 PATCH 0 Refills Prov:TRISTON OSORIO NP 08/10/24 Oseltamivir Phosphate (Tamiflu) 75 Mg Cap, 75 MG PO BID for 5 Days, #10 CAP Prov:ANDREINA DELA CRUZ MD 02/19/24 Oseltamivir Phosphate (Tamiflu) 75 Mg Cap, 75 MG PO BID, #7 CAP 0 Refills Prov:RODRIGO HEATH MD 09/20/23 Atorvastatin Calcium (LIPITOR) 40 Mg Tablet, 40 MG PO HS for 30 Days, #30 TAB 1 Refill Prov:RODRIGO HEATH MD 09/20/23 Aspirin (ASPIRIN 81 MG ECTAB) 81 Mg Ectab, 81 MG PO DAILY for 30 Days, #30 TAB.EC 1 Refill Prov:RODRIGO HEATH MD 09/20/23 Past Medical History Past Medical History: Depression, High Cholesterol, Heart Disease, Prostatitis, Other Additional Past Medical Hx: PARKINSONS, PTSD Surgical History: Appendectomy, Cholecystectomy Surgical History Other: HEART STENT Social History: Negative, Lives with family RN Note Reviewed/Agreed w/PFSH: Yes Review of System Dictation Constitutional: Negative for fever,chills, and weight loss Eyes: Negative for injury, pain,redness, and discharge ENT: Negative for injury,pain or swelling positive for neck pain Cardiovascular: Negative for chest pain, palpitations, and edema Respiratory: Negative for shortness of breath, cough, and wheezing, Abdomen/GI: Negative for abdominal pain, nausea, vomiting, diarrhea, and constipation Back: Negative for injury and pain : Negative for injury, bleeding and discharge MS/Extremity: Negative for injury and deformity positive for low back pain Skin: Negative for rash, and discoloration Neuro: Negative for , weakness, numbness, tingling, and seizure positive for headache Psych: Negative for suicide ideation, homicidal ideation, and hallucinations Initial Vital Sign VS Vital Signs Date Time Temp Pulse Resp B/P (MAP) Pulse Ox O2 Delivery O2 Flow Rate FiO2 08/20/24 23:11 96.1 84 20 129/92 99 Room Air 08/21/24 00:09 0 21 Physical Exam Dictation Vital Signs reviewed General Appearance: Alert, oriented x 3, no acute distress, well developed, nourished. Head and Face: non-traumatic. Eyes: PERRL, pink conjunctivas, eyelid no trauma, anterior chamber with arcus senilis. Ears: Pinnas intact and no signs of trauma or erythema ear canals clear and no discharge TM no erythema Nose: No discharge, no bleeding. Oropharynx: Mouth normal, tongue pink. pharynx clear,no erythema, tonsils no exudates, no abscesses noted, mucous membrane moist Neck: Supple, non-tender, no thyromegaly, no masses, no JVD, no bruits Breast:Deferred Chest:No tenderness, no crepitus, no paradoxical movement, no retractions Lungs:Clear, well-ventilated, symmetric, no rales, no wheezing, no rhonchi, no stridor, good breath sounds bilaterally Heart: Regular rate, regular rhythm, no murmur, no gallops Vascular: no peripheral edema, dorsalis pedis 3+ bilaterally Abdomen: Soft, positive bowel sounds, nondistended, no guarding, nontender, no rebound, no masses no hepatomegaly, no splenomegaly, no Jules's sign, no hernias. Rectal: Deferred Genital: Deferred Neurological: Normal speech, motor function intact, sensory function intact Musculoskeletal: Neck nontender, full range of motion, back nontender, full r mimi of motion, Extremities: nontender, full range of motion , full range of motion to upper extremities although with tremors, Skin: Color pink, dry, no turgor, no rash, no lacerations, no abrasions, no contusions. Lymphatic: Deferred Results (Laboratory/Radiology) Laboratory/Radiology REASON: fall, head trauma ORDERING PHYSICIAN: ABIGAIL LEAL [employer] MACHINE OPERATOR PROCEDURE: L SPIN WO - CT LUMBAR SPINE W/O CONTRAST CT LUMBAR SPINE W/O CONTRAST HISTORY: Fall COMPARISON: None TECHNIQUE: Multiple sequential axial images of the lumbar spine were obtained including post processing sagittal and coronal reconstruction images. Patient was not given contrast through intravenous route. FINDINGS: There are degenerative changes with spondylosis. Spondylotic discs with disc protrusions are seen at L3-4, L4-5 and L5-S1 causing central canal narrowing. There is no loss of vertebral height. Evaluation for disc and cord pathology is limited with CT study. No evidence of fracture or dislocation is seen. IMPRESSION: 1. No fracture is seen. 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 CT was performed with one or more following dose reduction techniques: automated exposure control, adjustment of the mA and kv according to patient's size, or use of a iterative reconstruction technique. REASON: fall, head trauma ORDERING PHYSICIAN: ABIGAIL LEAL [facility] PROCEDURE: HEAD WO - CT HEAD/BRAIN W/O CONTRAST CT HEAD/BRAIN W/O CONTRAST HISTORY: Fall COMPARISON: None TECHNIQUE: Multiple sequential axial images of the head were obtained from the base of the skull through vertex. Patient was not given contrast through intravenous route. FINDINGS: The ventricles and extraventricular CSF spaces are nondilated for patient's age. There is no midline shift, mass effect or herniation. No acute intracranial bleed is seen. Visualized portion of the paranasal sinuses are grossly within normal limits. IMPRESSION: 1. No acute intracranial bleed is seen. CT was performed with one or more following dose reduction techniques: automated exposure control, adjustment of the mA and kv according to patient's size, or use of a iterative reconstruction technique. REASON: fall, head trauma ORDERING PHYSICIAN: ABIGAIL LEAL [facility] PROCEDURE: L SPIN WO - CT LUMBAR SPINE W/O CONTRAST CT LUMBAR SPINE W/O CONTRAST HISTORY: Fall COMPARISON: None TECHNIQUE: Multiple sequential axial images of the lumbar spine were obtained including post processing sagittal and coronal reconstruction images. Patient was not given contrast through intravenous route. FINDINGS: There are degenerative changes with spondylosis. Spondylotic discs with disc protrusions are seen at L3-4, L4-5 and L5-S1 causing central canal narrowing. There is no loss of vertebral height. Evaluation for disc and cord pathology is limited with CT study. No evidence of fracture or dislocation is seen. IMPRESSION: 1. No fracture is seen. 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 CT was performed with one or more following dose reduction techniques: automated exposure control, adjustment of the mA and kv according to patient's size, or use of a iterative reconstruction technique. Labs Reviewed?: Yes ED Course ED Course Orders Procedure Category Date Status Time Ct Head/Brain W/O CT 08/20/24 Resulted Contrast 23:35 Ct Cervical Spine W/O CT 08/20/24 Resulted Contrast 23:35 Ct Lumbar Spine W/O CT 08/20/24 Resulted Contrast 23:35 Acetaminophen 500mg PHA 08/21/24 Complete Tab (Tylenol 500mg T 00:00 Ketorolac 60mg/2ml PHA 08/21/24 In Process (Toradol 60mg/2ml) 01:30 Current Medications Medications (Trade) Dose Ordered Sig/Kenzie Route PRN Reason Start Time Stop Time Status Last Admin Dose Admin Acetaminophen (TYLenol 500MG TAB) 1,000 mg ONCE ONCE PO 08/21/24 00:00 08/21/24 00:01 DC 08/21/24 00:32 Ketorolac Tromethamine (toRADol 60MG/ 2ML) 60 mg ONCE ONCE IM 08/21/24 01:30 08/21/24 01:31 Vital Signs Date Time Temp Pulse Resp B/P (MAP) Pulse Ox O2 Delivery O2 Flow Rate FiO2 08/21/24 00:09 69 18 116/49 98 Room Air* 0 21 08/20/24 23:11 96.1 84 20 129/92 99 Room Air Medical Decision Making MDM The patient is a 58-year-old male with history of Parkinson's, PTSD, cholecystectomy who presents to the emergency department after an accidental slip and fall onset 6:30 p.m. on 08/20/24. Patient reports he landed on his buttocks and then fell backwards hitting his head. Patient denies any LOC, nausea or vomiting, use of blood thinners. Patient currently reports neck pain, low back pain. Patient does have a history of chronic low back pain. CT head was unremarkable. C-spine showed no acute fractures. Lumbar CT showed no acute fractures. Some DJD with spondylosis and central narrowing. Patient reports that he has problems with the his lower back but it is not able to recall what kind of problems. Reports that he at baseline has difficulty moving in his very stiff. Patient with no urinary or fecal incontinence. Is able to move all extremities slowly. Patient in no acute distress. Will be discharged to follow up with PCP. Differential diagnosis: Intracerebral hemorrhage, C-spine fracture, lumbar fracture Need for hospitalization: Patient does not meet criteria for hospitalization. There are no social concerns with this patient. DX & DISP Disposition: Discharge Departure Impression: Primary Impression: Fall Additional Impressions: Head contusion, Low back pain Condition: Stable Scripts Cyclobenzaprine HCl (Flexeril) 10 Mg Tab 10 MG PO TID for muscle sstiffness, #14 TAB 0 Refills Prov: ABIGAIL LEAL 08/21/24 Ibuprofen (Ibuprofen) 600 Mg Tablet 600 MG PO Q6H PRN for PAIN, #15 TAB Prov: ABIGAIL LEAL 08/21/24 Lidocaine (Lidocaine) 4 % Adh..patch 1 PATCH TP DAILY for 10 Days, #10 PATCH 0 Refills Prov: ABIGAIL LEAL 08/21/24 Additional Instructions: Please follow up with your primary doctor in 1-2 days. Take medications as needed for pain. If symptoms worsen please return to ER. FOLLOW-UP WITH PRIMARY CARE PROVIDER IN 1 TO 2 DAYS. TAKE MEDICATIONS DIRECTED HERE IN THE EMERGENCY ROOM. OKAY TO CONTINUE HOME MEDICATIONS UNLESS OTHERWISE DISCUSSED DURING YOUR VISIT IN THE EMERGENCY ROOM TODAY. RETURN TO YOUR NEAREST EMERGENCY ROOM IF SYMPTOMS WORSEN OR IF THERE IS NO IMPROVEMENT. CALL 911 IF YOU NEED IMMEDIATE ASSISTANCE. TAKE TYLENOL OR MOTRIN [id number] NEEDED AND IF NO CONTRAINDICATIONS ARE PRESENT. INCREASE ORAL HYDRATION. A WOUND CULTURE OR URINE CULTURE WAS ORDERED HERE IN THE EMERGENCY ROOM DEPARTMENT PLEASE FOLLOW-UP WITH PRIMARY CARE PROVIDER AND ADVISE THEM TO GET REPEAT PORTS FROM OUR FACILITY. IF YOU HAD ANY CAROLYN WRAP/SPLINTS THAT WERE APPLIED HERE, PLEASE DO NOT REMOVE THEM UNTIL YOU SEE YOUR PRIMARY CARE OR SPECIALTY. Referrals: KINGSTON SANTIAGO MD (PCP) Time of Disposition: 01:17 I have reviewed the case, and I agree with, Diagnosis and Plan MELABIGAIL GONZALES Aug 21, 2024 01:19
[2024-08-21] MEDS: ketOROlac 60 MG VIAL (30MG/ML) IM ONE (01:22)
[2024-08-21 01:23] VITALS: BP 121/63; PULSE 73; RESP 19; TEMP 98.4; O2SAT 98
== END 2024-08-21 01:44 | disposition home or self-care (01) ==
LOC: EDH 23:10
DX: S00.93XA Contusion of unspecified part of head, initial encounter (principal); M54.50 Low back pain, unspecified; E78.00 Pure hypercholesterolemia, unspecified; Z79.82 Long term (current) use of aspirin; Z90.49 Acquired absence of other specified parts of digestive tract; Z95.5 Presence of coronary angioplasty implant and graft; W01.0XXA Fall on same level from slipping, tripping and stumbling without subsequent striking against object, initial encounter; Y93.89 Activity, other specified; Y92.89 Other specified places as the place of occurrence of the external cause; Y99.8 Other external cause status
CPT/HCPCS: 99285; 70450; 72125; 72131; 96372; J1885

== ENCOUNTER 2025-01-21 17:51 | Emergency (ER) | payer OTHER ==
[~2025-01-21] VITALS: Ht 172.7 cm; Wt 89.8 kg
[2025-01-21 17:51] VITALS: TEMP 98
[~2025-01-21 17:51] MED LIST changes: +CYCL10TA16 PO; +IBUP-1492 PO; +LIDO1ADH82 TP
--- NOTE | 2025-01-21 18:14 | EKG ---
[facility] Test Date: 2025-01-21 Test Time: 18:09:27 Pat Name: HARSHAL OSORIO Department: [facility] Room: Gender: M Workday Senior Associate: [id number] : 1965 Requested By: STANLEY ALCANTARA Order Number: [id number] Reading MD: Steph Gamboa Measurements Intervals [place] Rate: 88 P: 0 AR: 85 QRS: 4 QRSD: 100 T: 24 QT: 362 QTc: 438 Interpretive Statements Sinus rhythm Ventricular premature complex Compared to ECG 12/14/2024 12:44:12 Ventricular premature complex(es) now present Electronically Signed On 01-22-2025 05:43:51 CDT by Steph Gamboa Please click the below link to view image of tracing.
--- NOTE | 2025-01-21 18:24 | ERN ---
General Chief Complaint: Mechanical Fall Stated Complaint: FALL Time Seen by MD: 17:51 Time Seen by Midlevel: 17:51 Source: patient History of Present Illness Initial Comments The patient is a 59-year-old male with a past medical history of Parkinson's presenting to the emergency department following a mechanical ground level fall. The patient reports falling forward and hitting his head. Denies any loss of consciousness. The patient was assisted to a nearby chair by bystanders. On arrival with the patient has an obvious contusion to the right forehead and is reporting pain to his head along with the pain to his right knee and right shoulder. Denies being on blood thinners. Allergies: Coded Allergies: No Known Drug Allergies (Verified Allergy, Unknown, 07/10/17) No Known Food Allergies (Unverified Allergy, Unknown, 04/17/19) Home Meds Active Scripts Cyclobenzaprine HCl (Flexeril) 10 Mg Tab, 10 MG PO TID for muscle sstiffness, #14 TAB 0 Refills Prov:ABIGAIL LEAL [employer] COOK 08/21/24 Ibuprofen (Ibuprofen) 600 Mg Tablet, 600 MG PO Q6H PRN for PAIN, #15 TAB Prov:ABIGAIL LEAL [employer]GET[employer] COOK 08/21/24 Lidocaine (Lidocaine) 4 % Adh..patch, 1 PATCH TP DAILY for 10 Days, #10 PATCH 0 Refills Prov:ABIGAIL LEAL [employer]GET[employer] COOK 08/21/24 Lidocaine (Lidocaine Pain Relief) 4 % Adh..patch, 1 PATCH TP DAILY for 10 Days, #10 PATCH 0 Refills Prov:TRISTON OSORIO NP 08/10/24 Oseltamivir Phosphate (Tamiflu) 75 Mg Cap, 75 MG PO BID for 5 Days, #10 CAP Prov:ANDREINA DELA CRUZ MD 02/19/24 Oseltamivir Phosphate (Tamiflu) 75 Mg Cap, 75 MG PO BID, #7 CAP 0 Refills Prov:RODRIGO HEATH MD 09/20/23 Atorvastatin Calcium (LIPITOR) 40 Mg Tablet, 40 MG PO HS for 30 Days, #30 TAB 1 Refill Prov:RODRIGO HEATH MD 09/20/23 Aspirin (ASPIRIN 81 MG ECTAB) 81 Mg Ectab, 81 MG PO DAILY for 30 Days, #30 TAB.EC 1 Refill Prov:RODRIGO HEATH MD 09/20/23 Past Medical History Past Medical History: Other Medical History Other: PARKINSONS Past Surgical History: Appendectomy, Cholecystectomy Surgical History Other: HEART STENT Social History Social History: Negative, Lives with family ROS Dictation CONSTITUTIONAL: Negative except for HPI HEAD/FACE: Negative except for HPI EENT: Negative except for HPI RESPIRATORY: Negative except for HPI GASTROINTESTINAL/ABDOMINAL: Negative except for HPI GENITOURINARY: Negative except for HPI MUSCULOSKELETAL: Negative except for HPI INTEGUMENTARY: Negative except for HPI NEUROLOGICAL/PSYCH: Negative except for HPI HEMATOLOGIC/LYMPHATIC: Negative except for HPI All Systems Negative, Except as noted above. 13 point review of systems assessed and all negative except for above. Physical Exam Physical Exam Dictation Vital Signs reviewed General Appearance: Alert, oriented x 3, no acute distress, well developed, nourished. Head and Face: non-traumatic. Eyes: PERRL, pink conjunctivas, eyelid no trauma, anterior chamber with arcus senilis. Ears: Pinnas intact and no signs of trauma or erythema ear canals clear and no discharge TM no erythema Nose: No discharge, no bleeding. Oropharynx: Mouth normal, tongue pink, pharynx clear,no erythema, tonsils no exudates, no abscesses noted, mucous membrane moist Neck: Supple, non-tender, no thyromegaly, no masses, no JVD, no bruits Breast:Deferred Chest:No tenderness, no crepitus, no paradoxical movement, no retractions Lungs:Clear, well-ventilated, symmetric, no rales, no wheezing, no rhonchi, no stridor, good breath sounds bilaterally Heart: Regular rate, regular rhythm, no murmur, no gallops Vascular: no peripheral edema, Abdomen: Soft, positive bowel sounds, nondistended, no guarding, nontender, no rebound, no masses no hepatomegaly, no splenomegaly, no Jules's sign, no hernias. Rectal: Deferred Genital: Deferred Neurological: Normal speech, motor function intact, sensory function intact Musculoskeletal: Neck nontender, full range of motion, back nontender, full range of motion, Extremities: nontender, full range of motion Skin: Abrasion/contusion to the right forehead, abrasion to the right knee, Lymphatic: Deferred Results Laboratory and Microbiology Lab and Micro Result Laboratory Tests Test 01/21/25 18:24 White Blood Count 6.4 K/uL (4.8-10.8) Red Blood Count 4.79 MIL/uL (4.50-6.20) Hemoglobin 14.9 g/dL (14.0-18.0) Hematocrit 44.3 % (42-54) Mean Corpuscular Volume 92.5 fL (79-99) Mean Corpuscular Hemoglobin 31.1 pg (27.0-33.0) Mean Corpuscular Hemoglobin Concent 33.6 g/dL (32.0-36.0) Red Cell Distribution Width 13.0 % (11.0-15.5) Platelet Count 181 K/uL (130-400) Mean Platelet Volume 10.0 fL (7.5-10.5) Immature Granulocyte % (Auto) 0.3 % (0-1) Neutrophils (%) (Auto) 68.0 % (40.0-77.0) Lymphocytes (%) (Auto) 20.3 % (21.0-51.0) L Monocytes (%) (Auto) 9.5 % (3.0-13.0) Eosinophils (%) (Auto) 1.6 % (0.0-8.0) Basophils (%) (Auto) 0.3 % (0.0-5.0) Neutrophils # (Auto) 4.4 K/uL (1.8-7.7) Lymphocytes # (Auto) 1.3 K/uL (1.0-4.8) Monocytes # (Auto) 0.6 K/uL (0.1-1.0) Eosinophils # (Auto) 0.10 K/uL (0.00-0.70) Basophils # (Auto) 0.02 K/uL (0.00-0.20) Absolute Immature Granulocyte (auto 0.02 K/uL (0-1) Nucleated Red Blood Cells 0.0 % (0.0-0.19) Sodium Level 137 mmol/L (136-145) Potassium Level 3.8 mmol/L (3.5-5.1) Chloride Level 101 mmol/L (101-111) Carbon Dioxide Level 30 mmol/L (21-32) Blood Urea Nitrogen 18 mg/dL (7-18) Creatinine 0.8 mg/dL (0.5-1.3) Glomerular Filtration Rate Calc 103 mL/min (>90) Random Glucose 91 mg/dL (70-105) Total Calcium 8.6 mg/dL (8.5-10.1) Troponin I High Sensitivity < 4 ng/L (4-75) L Labs Reviewed?: Yes MDM MDM: The patient is a 59-year-old male with a past medical history of Parkinson's presenting to the emergency department following a mechanical ground level fall. The patient reports falling forward and hitting his head. Denies any loss of consciousness. The patient was assisted to a nearby chair by bystanders. On arrival with the patient has an obvious contusion to the right forehead and is reporting pain to his head along with the pain to his right knee and right shoulder. Denies being on blood thinners. On physical examination patient is in no acute respiratory distress. He is alert and oriented x4 with a GCS of . He has a abrasion to the right forehead and his right knee but is able to move all four extremities. Given mechanism of injury a CT scan of the head, neck, maxillofacial, and abdomen and pelvis were performed which do not reveal any acute fracture or dislocation. CT abdomen and pelvis does reveal an incidental finding of two liver cyst. This was discussed with the patient and they will be following up outpatient. With the patient arrived he was slightly tachycardic so he was started on 1 L of IV fluids and basic blood work was obtained. CBC and chemistries unremarkable. Troponin was negative. EKG shows no evidence of a heart attack. We will discharged home with strict return precautions. A copy of his CT scan was provided to the patient. 1 Differential diagnosis: Intracranial bleed, fracture, dislocation There are no social concerns with this patient. Prescription drug management Prescriptions will include:, contusion Medical management and examination interpretation discussions were had by me with other qualified healthcare professionals as indicated for the patient's care. ED Course Orders Procedure Category Date Status Time 12 Lead Ekg Tracing- EKG 01/21/25 Complete Technical 18:04 Cbc With Differential LAB 01/21/25 Complete 18:04 Basic Metabolic Panel LAB 01/21/25 Complete 18:04 Troponin I High LAB 01/21/25 Complete Sensitivity 18:04 Ct Head/Brain W/O CT 01/21/25 Resulted Contrast 18:04 Ct Cervical Spine W/O CT 01/21/25 Resulted Contrast 18:04 Ct Abdomen/Pelvis W/O CT 01/21/25 Resulted Contrast 18:04 Ct Maxillofacial W/O CT 01/21/25 Resulted Contrast 18:04 Shoulder Comp 2+Vws Rt RAD 01/21/25 Resulted 18:04 Knee 3vws Rt RAD 01/21/25 Resulted 18:04 0.9%Nacl 1000ml (Ns PHA 01/21/25 Complete 1000ml) 18:30 Morphine 2mg Syg PHA 01/21/25 Complete (Morphine 2mg Syg) 18:30 Ondansetron 4mg Inj PHA 01/21/25 Complete (Zofran 4mg Inj) 18:30 Current Medications Medications (Trade) Dose Ordered Sig/Kenzie Route PRN Reason Start Time Stop Time Status Last Admin Dose Admin Morphine Sulfate (morPHINE 2MG SYG) 2 mg ONCE ONCE IVP 01/21/25 18:30 01/21/25 18:31 DC 01/21/25 18:30 Ondansetron HCl (zoFRAN 4MG INJ) 4 mg ONCE ONCE IVP 01/21/25 18:30 01/21/25 18:31 DC 01/21/25 18:30 Sodium Chloride 1,000 ml @ 0 mls/hr ONCE ONCE IV 01/21/25 18:30 01/21/25 18:31 DC 01/21/25 18:30 Vital Signs Date Time Temp Pulse Resp B/P (MAP) Pulse Ox O2 Delivery O2 Flow Rate FiO2 01/21/25 19:59 80 18 122/80 98 Room Air* 0 21 01/21/25 19:07 119/79 Room Air* 0 21 01/21/25 17:51 98.1 100 16 132/86 98 Room Air 0 DX & DISP Disposition: Discharge Departure Impression: Primary Impression: Fall Additional Impressions: Forehead contusion, Contusion of right knee, Right shoulder strain, Closed head injury Condition: Stable Referrals: KINGSTON SANTIAGO MD (PCP) I have reviewed the case, and I agree with, Diagnosis and Plan I performed the substantive portion of the visit. I have reviewed and personally made and approve the management plan that is documented in the note by myself or the LEN. I acknowledge for responsibility for the patient's management plan. STANLEY ALCANTARA Jan 21, 2025 18:24
[2025-01-21] MEDS: 0.9%NACL 1000ML 1,000 ML IV ONE (18:30)
[2025-01-21 18:38] LABS: IMMATURE GRANULOCYTE ABSOLUTE 0.02 K/uL (0-1); NUCLEATED RED BLOOD CELLS 0.0 % (0.0-0.19); PLATELET COUNT (AUTO) 181 K/uL (130-400); RED BLOOD CELL COUNT(AUTO) 4.79 MIL/uL (4.50-6.20); RED CELL DISTRIBUTION WIDTH 13.0 % (11.0-15.5); WHITE BLOOD COUNT (AUTO) 6.4 K/uL (4.8-10.8)
[2025-01-21 18:45] LABS: CREATININE 0.8 mg/dL (0.5-1.3); GLOMERULAR FILTR. RATE CALC 103.0 mL/min (>90); GLUCOSE,RANDOM 91.0 mg/dL (70-105); SODIUM SERUM 137.0 mmol/L (136-145); UREA NITROGEN, BLOOD 18.0 mg/dL (7-18)
--- NOTE | 2025-01-21 19:26 | HMCIMG ---
EXAM: CR right Shoulder, 2 View. CLINICAL HISTORY: fall COMPARISON: None provided. FINDINGS: BONES: No acute fracture or aggressive appearing osseous lesion. JOINTS: No dislocation. The joint spaces are normal. SOFT TISSUES: The soft tissues are unremarkable. IMPRESSION: No acute abnormality evident on examination of the right shoulder. No acute fracture or dislocation. /[place]
--- NOTE | 2025-01-21 19:27 | HMCIMG ---
EXAM: CR right Knee, 3 View. CLINICAL HISTORY: fall COMPARISON: None provided. FINDINGS: BONES: No acute fracture or aggressive appearing osseous lesion. JOINTS: The joint spaces show no significant degenerative disease. There is no joint effusion appreciated. SOFT TISSUES: The soft tissues are unremarkable. IMPRESSION: No acute osseous pathology evident. /[place]
--- NOTE | 2025-01-21 19:55 | NUR ---
WOUND CARE TO ABRASIONS TO RIGHT FOREHEAD 1.5 INCH ROUND AND SMALL TO BELOW RIGHT KNEE.
--- NOTE | 2025-01-21 19:57 | NUR ---
CLEANED WITH SKINTEGRITY, DRIED WITH GUAZE, COVERED WITH BANDAIDS, NO BLEEDING TO THE 2 SITES, TOLERATED WELL.
--- NOTE | 2025-01-21 20:15 | HMCIMG ---
EXAMINATION: CT Maxillofacial Without IV Contrast. CLINICAL HISTORY: Patient presents after a fall. COMPARISON: None provided. TECHNIQUE: Axial computed tomography images of the face without intravenous contrast. Sagittal and coronal reformatted images were generated. CONTRAST: None. FINDINGS: FACIAL BONES/ORBITS: No acute fracture or aggressive appearing osseous lesion. The mandible is intact. The orbits are normal. No retrobulbar hematoma or mass. Polypoidal mucosal thickening in the left maxillary sinus. Metallic streak artifacts from dental implants limit evaluation. The remaining paranasal sinuses appear clear. SOFT TISSUES: The soft tissues are unremarkable. No radiopaque foreign body or focal fluid collection. IMPRESSION: Polypoidal mucosal thickening in the left maxillary sinus. Metallic streak artifacts from dental implants limiting evaluation. No acute facial bone fracture. /[place]
--- NOTE | 2025-01-21 20:21 | HMCIMG ---
EXAMINATION: CT Cervical Spine Without IV Contrast. CLINICAL HISTORY: Patient presents after a fall. COMPARISON: CT cervical spine dated August 21, 2024. TECHNIQUE: Axial computed tomography images of the cervical spine without intravenous contrast. Sagittal and coronal reformatted images were generated. FINDINGS: ALIGNMENT: Straightening of the cervical spine, which may be secondary to paraspinal muscle spasm. Bony alignment is anatomic. DEGENERATIVE CHANGES: No significant canal stenosis or neural foraminal narrowing. SOFT TISSUES: The prevertebral soft tissues are within normal limits. BONES: No acute fracture or aggressive appearing osseous lesion. IMPRESSION: Straightening of the cervical spine, likely related to paraspinal muscle spasm. No acute cervical spine abnormality. /[place]
--- NOTE | 2025-01-21 20:24 | HMCIMG ---
EXAMINATION: CT Abdomen and Pelvis Without IV Contrast CLINICAL HISTORY: Patient presents after a fall. COMPARISON: None provided. TECHNIQUE: Axial computed tomography images of the abdomen and pelvis without intravenous contrast. CONTRAST: No IV contrast. FINDINGS: LUNG BASES: The lung bases appear clear. No pleural effusions. LIVER: Two hypodense lesions in the liver, largest measuring 3.5 x 3.2 x 3.3 cm in the right lobe, concerning for hepatic cyst. GALLBLADDER AND BILE DUCTS: The gallbladder is surgically absent. No biliary ductal dilatation. PANCREAS: The pancreas is unremarkable. SPLEEN: The spleen is unremarkable. ADRENAL GLANDS: The adrenal glands are unremarkable. KIDNEYS, URETERS, AND BLADDER: The kidneys appear within normal limits. No hydronephrosis or hydroureter. No urinary calculi. The urinary bladder is incompletely distended with diffuse wall thickening and minimal perivesical fat stranding. Maximum wall thickness approximately 0.5 cm. STOMACH AND BOWEL: Unremarkable appearance of the stomach and bowel. Colonic diverticulosis without diverticulitis. Mild colonic stool burden consistent with constipation. No evidence of bowel obstruction. No features suggesting enteritis or colitis. APPENDIX: No evidence of acute appendicitis on CT examination. PERITONEUM: No free fluid. No free air. LYMPH NODES: No lymphadenopathy. REPRODUCTIVE: Unremarkable as visualized. VASCULATURE: No evidence of abdominal aortic aneurysm. BONES: Multilevel mild degenerative changes of the spine. No aggressive appearing osseous lesion. No acute osseous pathology. ABDOMINAL WALL: Bilateral small fat-containing inguinal hernias. IMPRESSION: Two hypodense lesions in the liver, largest measuring 3.5 x 3.2 x 3.3 cm in the right lobe, concerning for hepatic cysts. Recommend further evaluation with ultrasound, contrast-enhanced CT, or MRI on a non-emergent basis. Diffuse urinary bladder wall thickening with minimal perivesical fat stranding. Colonic diverticulosis without diverticulitis. Bilateral small fat-containing inguinal hernias. The gallbladder is surgically absent. Mild constipation. /[place]
--- NOTE | 2025-01-21 20:25 | HMCIMG ---
EXAMINATION: CT Head Without IV Contrast. CLINICAL HISTORY: Patient presents after a fall. COMPARISON: CT brain dated August 21, 2024. TECHNIQUE: Axial computed tomography images of the head/brain without intravenous contrast. FINDINGS: BRAIN: No evidence of acute hemorrhage. No mass lesion. No CT evidence for acute territorial infarct. No midline shift or extra-axial collections. VENTRICLES: No hydrocephalus. ORBITS: The orbits are unremarkable. SINUSES AND MASTOIDS: Polypoidal mucosal thickening in the left maxillary sinus. The remaining paranasal sinuses and mastoid air cells are clear. BONES: No fracture. SOFT TISSUES: Unremarkable. IMPRESSION: No acute intracranial abnormality. /[place]
[2025-01-21 21:53] VITALS: BP 125/71; PULSE 90; RESP 18; O2SAT 98
== END 2025-01-21 22:03 | disposition home or self-care (01) ==
LOC: EDH 17:51
DX: S46.911A Strain of unspecified muscle, fascia and tendon at shoulder and upper arm level, right arm, initial encounter (principal); S80.01XA Contusion of right knee, initial encounter; S00.83XA Contusion of other part of head, initial encounter; G20.A1 Parkinson's disease without dyskinesia, without mention of fluctuations; Z90.49 Acquired absence of other specified parts of digestive tract; Z95.5 Presence of coronary angioplasty implant and graft; Z98.890 Other specified postprocedural states; Z79.82 Long term (current) use of aspirin; Z79.899 Other long term (current) drug therapy; W18.39XA Other fall on same level, initial encounter; Y93.89 Activity, other specified; Y92.89 Other specified places as the place of occurrence of the external cause; Y99.8 Other external cause status
CPT/HCPCS: 99285; 70450; 96374; 96361; 96375; 84484; 80048; 85025; 36415; 73562; 73030; 72125; 70486; 74176; 93005; J2270; J7030; J2405

== ENCOUNTER 2025-01-27 20:10 | Emergency (ER) | payer OTHER ==
[~2025-01-27] VITALS: Ht 172.7 cm; Wt 88.5 kg
--- NOTE | 2025-01-27 20:16 | NUR ---
URINAL AND UA CUP PROVIDED, INSTRUCTED FAMILY AND PT ON EMERGENCY PULL CORD IF NEEDING HELP
--- NOTE | 2025-01-27 20:22 | NUR ---
COVID, FLU AND UA SAMPLE COLLECTED AND SENT ORDERED
[2025-01-27 20:31] LABS: ADD UA MICROSCOPIC NO; APPEARANCE,URINE CLEAR (CLEAR); GLUCOSE, URINE (UA) NEGATIVE (NEGATIVE); LEUKOCYTE ESTERASE ,URINE NEGATIVE Leu/uL (NEGATIVE); NITRATE,URINE NEGATIVE (NEGATIVE); OCCULT BLOOD,URINE NEGATIVE (NEGATIVE)
[2025-01-27 20:44] LABS: SARS-CoV-2, RNA, NAAT NEGATIVE SARS CoV-2 (NEGATIVE)
[2025-01-27 20:51] LABS: INFLUENZA TYPE A Negative For Type A (NEGATIVE); INFLUENZA TYPE B Negative For Type B (NEGATIVE)
[2025-01-27 20:52] LABS: IMMATURE GRANULOCYTE ABSOLUTE 0.01 K/uL (0-1); NUCLEATED RED BLOOD CELLS 0.0 % (0.0-0.19); PLATELET COUNT (AUTO) 221 K/uL (130-400); RED BLOOD CELL COUNT(AUTO) 5.02 MIL/uL (4.50-6.20); RED CELL DISTRIBUTION WIDTH 13.3 % (11.0-15.5); WHITE BLOOD COUNT (AUTO) 5.4 K/uL (4.8-10.8)
--- NOTE | 2025-01-27 20:52 | EKG ---
[facility] Test Date: 2025-01-27 Test Time: 20:47:19 Pat Name: HARSHAL OSORIO Department: [facility] Room: Gender: M Small Business Consultant: [id number] : 1965 Requested By: ABIGAIL LEAL Order Number: [id number] Reading MD: Donato Tillman Measurements Intervals [place] Rate: 77 P: 42 MA: 67 QRS: 16 QRSD: 96 T: 29 QT: 391 QTc: 443 Interpretive Statements Artifacts Sinus rhythm Electronically Signed On 01-28-2025 12:09:01 CDT by Donato Tillman Please click the below link to view image of tracing.
[2025-01-27] MEDS: 0.9%NACL 1000ML 1,000 ML IV ONE (20:57)
--- NOTE | 2025-01-27 20:59 | NUR ---
STREP COLLECTED AND SENT ORDERED
--- NOTE | 2025-01-27 21:15 | HMCIMG ---
EXAM: CR Chest, 1 View. CLINICAL HISTORY: cough COMPARISON: 12/14/2024 FINDINGS: LUNGS: The lungs show no infiltrate or other acute finding. PLEURAL SPACES: No pleural effusion or pneumothorax. MEDIASTINUM: Cardiac size and mediastinal contours within normal limits. BONES: No acute osseous abnormality. IMPRESSION: No acute cardiopulmonary pathology is evident. /[place]
[2025-01-27 21:22] LABS: CREATINE KINASE, TOTAL 121.0 U/L (21-232); CREATININE 0.7 mg/dL (0.5-1.3); GLOMERULAR FILTR. RATE CALC 107.0 mL/min (>90); GLUCOSE,RANDOM 101.0 mg/dL (70-105); SODIUM SERUM 138.0 mmol/L (136-145); UREA NITROGEN, BLOOD 14.0 mg/dL (7-18)
[2025-01-27 21:49] VITALS: BP 136/82; PULSE 88; RESP 16; TEMP 98.2; O2SAT 98
--- NOTE | 2025-01-27 21:53 | ERN ---
ED Note History of Present Illness Stated Complaint: WEAKNESS, " FEVERISH", BACK PAIN Chief Complaint: Multiple Complaints Time Seen by MD: 20:22 Time Seen by Midlevel: 20:22 Dictation: The patient is a 59-year-old male with a history of Parkinson's, cholecystectomy who presents to the emergency department with complaints of generalized weakness, sore throat, light nonproductive cough onset today. Patient denies any fevers, denies any ear pain. Denies any nausea vomiting or diarrhea. Patient also reported upper back pain. Denies any trauma Allergies: Coded Allergies: No Known Drug Allergies (Verified Allergy, Unknown, 07/10/17) No Known Food Allergies (Unverified Allergy, Unknown, 04/17/19) Home Meds Active Scripts Cyclobenzaprine HCl (Flexeril) 10 Mg Tab, 10 MG PO TID for muscle sstiffness, #14 TAB 0 Refills Prov:ABIGAIL LEAL VULCANIZING MACHINE OPERATOR 08/21/24 Ibuprofen (Ibuprofen) 600 Mg Tablet, 600 MG PO Q6H PRN for PAIN, #15 TAB Prov:ABIGAIL LEAL VULCANIZING MACHINE OPERATOR 08/21/24 Lidocaine (Lidocaine) 4 % Adh..patch, 1 PATCH TP DAILY for 10 Days, #10 PATCH 0 Refills Prov:ABIGAIL LEAL VULCANIZING MACHINE OPERATOR 08/21/24 Lidocaine (Lidocaine Pain Relief) 4 % Adh..patch, 1 PATCH TP DAILY for 10 Days, #10 PATCH 0 Refills Prov:TRISTON OSORIO NP 08/10/24 Oseltamivir Phosphate (Tamiflu) 75 Mg Cap, 75 MG PO BID for 5 Days, #10 CAP Prov:ANDREINA DELA CRUZ MD 02/19/24 Oseltamivir Phosphate (Tamiflu) 75 Mg Cap, 75 MG PO BID, #7 CAP 0 Refills Prov:RODRIGO HEATH MD 09/20/23 Atorvastatin Calcium (LIPITOR) 40 Mg Tablet, 40 MG PO HS for 30 Days, #30 TAB 1 Refill Prov:RODRIGO HEATH MD 09/20/23 Aspirin (ASPIRIN 81 MG ECTAB) 81 Mg Ectab, 81 MG PO DAILY for 30 Days, #30 TAB.EC 1 Refill Prov:RODRIGO HEATH MD 09/20/23 Past Medical History Past Medical History: Other Additional Past Medical Hx: PARKINSONS, PTSD Surgical History: Appendectomy, Cholecystectomy Surgical History Other: HEART STENT Social History: Negative, Lives with family RN Note Reviewed/Agreed w/PFSH: Yes Review of System Dictation Constitutional: Negative for fever and weight loss positive for body aches, chills Eyes: Negative for injury, pain,redness, and discharge ENT: Negative for injury,pain or swelling positive for sore throat Cardiovascular: Negative for chest pain, palpitations, and edema Respiratory: Negative for shortness of breath, and wheezing, positive for cough Abdomen/GI: Negative for abdominal pain, nausea, vomiting, diarrhea, and constipation Back: Negative for injury and pain : Negative for injury, bleeding and discharge MS/Extremity: Negative for injury and deformity Skin: Negative for rash, and discoloration Neuro: Negative for headache, numbness, tingling, and seizure positive for weakness Psych: Negative for suicide ideation, homicidal ideation, and hallucinations Initial Vital Sign VS Vital Signs Date Time Temp Pulse Resp B/P (MAP) Pulse Ox O2 Delivery O2 Flow Rate FiO2 01/27/25 20:12 97.5 88 16 139/87 97 Room Air 01/27/25 20:28 0 21 Physical Exam Dictation Vital Signs reviewed General Appearance: Alert, oriented x 3, no acute distress, well developed, nourished. Head and Face: non-traumatic. Eyes: PERRL, pink conjunctivas, eyelid no trauma, anterior chamber with arcus senilis. Ears: Pinnas intact and no signs of trauma or erythema ear canals clear and no discharge TM no erythema Nose: No discharge, no bleeding. Oropharynx: Mouth normal, tongue pink. pharynx clear,no erythema, tonsils no exudates, no abscesses noted, mucous membrane moist Neck: Supple, non-tender, no thyromegaly, no masses, no JVD, no bruits Breast:Deferred Chest:No tenderness, no crepitus, no paradoxical movement, no retractions Lungs:Clear, well-ventilated, symmetric, no rales, no wheezing, no rhonchi, no stridor, good breath sounds bilaterally Heart: Regular rate, regular rhythm, no murmur, no gallops Vascular: no peripheral edema, Abdomen: Soft, positive bowel sounds, nondistended, no guarding, nontender, no rebound, no masses no hepatomegaly, no splenomegaly, no Jules's sign, no hernias. Rectal: Deferred Genital: Deferred Neurological: Normal speech, motor function intact, sensory function intact Musculoskeletal: Neck nontender, full range of motion, back nontender, full range of motion, Extremities: nontender, full range of motion Skin: Color pink, dry, no turgor, no rash, no lacerations, no abrasions, no contusions. Lymphatic: Deferred Results (Laboratory/Radiology) Laboratory/Radiology Laboratory Tests Test 01/27/25 20:19 01/27/25 20:39 01/27/25 20:59 01/27/25 21:04 Urine Color YELLOW (YELLOW) Urine Appearance CLEAR (CLEAR) Urine pH 6.0 (5.0-8.0) Urine Specific [place] 1.030 (1.001-1.031) Urine Protein NEGATIVE mg/dL (NEGATIVE) Urine Glucose (UA) NEGATIVE mg/dL (NEGATIVE) Urine Ketones NEGATIVE mg/dL (NEGATIVE) Urine Occult Blood NEGATIVE (NEGATIVE) Urine Nitrate NEGATIVE (NEGATIVE) Urine Bilirubin NEGATIVE mg/dL (NEGATIVE) Urine Urobilinogen 6 mg/dL (0.2-1.0) H Urine Leukocyte Esterase NEGATIVE [place]/uL Influenza Type A Antigen Negative For Type A Influenza Type B Antigen Negative For Type B SARS-CoV-2, RNA, NAAT NEGATIVE SARS CoV-2 White Blood Count 5.4 K/uL (4.8-10.8) Red Blood Count 5.02 MIL/uL (4.50-6.20) Hemoglobin 15.7 g/dL (14.0-18.0) Hematocrit 47.2 % (42-54) Mean Corpuscular Volume 94.0 fL (79-99) Mean Corpuscular Hemoglobin 31.3 pg (27.0-33.0) Mean Corpuscular Hemoglobin Concent 33.3 g/dL (32.0-36.0) Red Cell Distribution Width 13.3 % (11.0-15.5) Platelet Count 221 K/uL (130-400) Mean Platelet Volume 11.1 fL (7.5-10.5) H Immature Granulocyte % (Auto) 0.2 % (0-1) Neutrophils (%) (Auto) 60.2 % (40.0-77.0) Lymphocytes (%) (Auto) 25.8 % (21.0-51.0) Monocytes (%) (Auto) 9.6 % (3.0-13.0) Eosinophils (%) (Auto) 3.5 % (0.0-8.0) Basophils (%) (Auto) 0.7 % (0.0-5.0) Neutrophils # (Auto) 3.3 K/uL (1.8-7.7) Lymphocytes # (Auto) 1.4 K/uL (1.0-4.8) Monocytes # (Auto) 0.5 K/uL (0.1-1.0) Eosinophils # (Auto) 0.19 K/uL (0.00-0.70) Basophils # (Auto) 0.04 K/uL (0.00-0.20) Absolute Immature Granulocyte (auto 0.01 K/uL (0-1) Nucleated Red Blood Cells 0.0 % (0.0-0.19) Troponin I High Sensitivity < 4 ng/L (4-75) L Group A Streptococcus Rapid negative (NEGATIVE) Sodium Level 138 mmol/L (136-145) Potassium Level 3.9 mmol/L (3.5-5.1) Chloride Level 104 mmol/L (101-111) Carbon Dioxide Level 31 mmol/L (21-32) Blood Urea Nitrogen 14 mg/dL (7-18) Creatinine 0.7 mg/dL (0.5-1.3) Glomerular Filtration Rate Calc 107 mL/min (>90) Random Glucose 101 mg/dL (70-105) Total Calcium 8.7 mg/dL (8.5-10.1) Total Creatine Kinase 121 U/L (21-232) # REASON: cough ORDERING PHYSICIAN: ABIGAIL LEAL PROCEDURE: CXR1VW - CHEST 1VW EXAM: CR Chest, 1 View. CLINICAL HISTORY: cough COMPARISON: 12/14/2024 FINDINGS: LUNGS: The lungs show no infiltrate or other acute finding. PLEURAL SPACES: No pleural effusion or pneumothorax. MEDIASTINUM: Cardiac size and mediastinal contours within normal limits. BONES: No acute osseous abnormality. IMPRESSION: No acute cardiopulmonary pathology is evident. /[place] Labs Reviewed?: Yes EKG: (+) rhythm (Sinus rhythm) EKG Comment: Date:01/27/2025 Time:2047 Ventricular rate:77 [place] interval:67 QRS duration:96 QT/QTc:391/443 EKG interpretation: Sinus rhythm, multiple artifacts due to patient with a history of Parkinson's. Patient with no active chest pain, negative troponin Reviewed by ED Attending no STEMI ED Course ED Course Orders Procedure Category Date Status Time Urinalysis Profile LAB 01/27/25 Complete 20:18 Covid Rna Naat LAB 01/27/25 Complete 20:18 Influenza Type A & B, LAB 01/27/25 Complete Rapid 20:18 Cbc With Differential LAB 01/27/25 Complete 20:28 Chest 1vw RAD 01/27/25 Resulted 20:28 12 Lead Ekg Tracing- EKG 01/27/25 Complete Technical 20:28 0.9%Nacl 1000ml (Ns PHA 01/27/25 Complete 1000ml) 20:30 Troponin I High LAB 01/27/25 Complete Sensitivity 20:28 Acetaminophen 500mg PHA 01/27/25 Complete Tab (Tylenol 500mg T 20:30 Rapid (Group A Strep) LAB 01/27/25 Complete 20:28 Basic Metabolic Panel LAB 01/27/25 Complete 20:56 Creatine Kinase, Total LAB 01/27/25 Complete 20:56 Current Medications Medications (Trade) Dose Ordered Sig/Kenzie Route PRN Reason Start Time Stop Time Status Last Admin Dose Admin Acetaminophen (TYLenol 500MG TAB) 1,000 mg ONCE ONCE PO 01/27/25 20:30 01/27/25 20:32 DC 01/27/25 20:57 Sodium Chloride 1,000 ml @ 0 mls/hr ONCE ONCE IV 01/27/25 20:30 01/27/25 20:32 DC 01/27/25 20:57 Vital Signs Date Time Temp Pulse Resp B/P (MAP) Pulse Ox O2 Delivery O2 Flow Rate FiO2 01/27/25 20:28 98.2 85 16 138/85 98 Room Air* 0 21 01/27/25 20:12 97.5 88 16 139/87 97 Room Air Medical Decision Making MDM The patient is a 59-year-old male with a history of Parkinson's, cholecystectomy who presents to the emergency department with complaints of generalized weakness, sore throat, light nonproductive cough onset today. Patient denies any fevers, denies any ear pain. Denies any nausea vomiting or diarrhea. Patient also reported upper back pain. Denies any trauma CBC showed no leukocytosis, no anemia, chemistry showed no electrolyte imbalance, negative troponin, urinalysis unremarkable. Chest x-ray showed no acute pathology. Patient has symptoms consistent with a an upper respiratory infection. On physical exam patient appears in no acute distress, nontoxic appearance. Labs and imaging discussed with the patient. At this time patient says he feels a lot better and feels good to be discharge. Differential diagnosis: COVID 19 infection, dehydration, ACS, electrolyte imbalance, pneumonia, URI Need for hospitalization: Patient does not meet criteria for hospitalization. There are no social concerns with this patient. DX & DISP Disposition: Discharge Departure Impression: Primary Impression: URI (upper respiratory infection) Condition: Stable Additional Instructions: Your labs were unremarkable. Your chest x-ray did not show any pneumonia. Your symptoms are consistent with a an upper respiratory infection it is a viral infection and you do not need any antibiotics at this time. Please follow up with the primary doctor in 1-2 days. If anything worsens please return to ER. FOLLOW-UP WITH PRIMARY CARE PROVIDER IN 1 TO 2 DAYS. TAKE MEDICATIONS DIRECTED HERE IN THE EMERGENCY ROOM. OKAY TO CONTINUE HOME MEDICATIONS UNLESS OTHERWISE DISCUSSED DURING YOUR VISIT IN THE EMERGENCY ROOM TODAY. RETURN TO YOUR NEAREST EMERGENCY ROOM IF SYMPTOMS WORSEN OR IF THERE IS NO IMPROVEMENT. CALL 911 IF YOU NEED IMMEDIATE ASSISTANCE. TAKE TYLENOL [id number] NEEDED AND IF NO CONTRAINDICATIONS ARE PRESENT. INCREASE ORAL HYDRATION. A WOUND CULTURE OR URINE CULTURE WAS ORDERED HERE IN THE EMERGENCY ROOM DEPARTMENT PLEASE FOLLOW-UP WITH PRIMARY CARE PROVIDER AND ADVISE THEM TO GET REPEAT PORTS FROM OUR FACILITY. IF YOU HAD ANY CAROLYN WRAP/SPLINTS THAT WERE APPLIED HERE, PLEASE DO NOT REMOVE THEM UNTIL YOU SEE YOUR PRIMARY CARE OR SPECIALTY. Referrals: KINGSTON SANTIAGO MD (PCP) Time of Disposition: 21:53 I have reviewed the case, and I agree with, Diagnosis and Plan ABIGAIL LEAL [facility] Jan 27, 2025 21:53
== END 2025-01-27 22:03 | disposition home or self-care (01) ==
LOC: EDH 20:10
DX: J06.9 Acute upper respiratory infection, unspecified (principal); M54.6 Pain in thoracic spine; G20.A1 Parkinson's disease without dyskinesia, without mention of fluctuations; Z79.82 Long term (current) use of aspirin; Z79.899 Other long term (current) drug therapy; Z90.49 Acquired absence of other specified parts of digestive tract; Z95.5 Presence of coronary angioplasty implant and graft; Z20.822 Contact with and (suspected) exposure to COVID-19
CPT/HCPCS: 99285; 71045; 87635; 82550; 84484; 80048; 85025; 87880; 87804 ×2; 81003; 36415; 93005; J7030

== ENCOUNTER 2025-03-05 00:08 | Emergency (ER) | payer OTHER ==
[~2025-03-05] VITALS: Ht 172.7 cm; Wt 88.0 kg
--- NOTE | 2025-03-05 00:19 | EKG ---
[facility] Test Date: 2025-03-05 Test Time: 00:12:23 Pat Name: HARSHAL OSORIO Department: [facility] Room: Gender: M Director Behavioral Health: [phone] : 1965 Requested By: MAREK GAMBOA Order Number: [id number] Reading MD: Donato Tillman Measurements Intervals [place] Rate: 86 P: 55 SC: 157 QRS: 23 QRSD: 104 T: 33 QT: 367 QTc: 440 Interpretive Statements Sinus rhythm Borderline ST elevation, anterolateral leads Compared to ECG 01/27/2025 20:47:19 ST (T wave) deviation now present Electronically Signed On 03-06-2025 12:50:37 CDT by Donato Tillman Please click the below link to view image of tracing.
--- NOTE | 2025-03-05 00:31 | ERN ---
ED Note History of Present Illness Stated Complaint: CHEST PAIN, SOB Chief Complaint: Chest Pain Time Seen by MD: 00:11 Dictation: This is a very pleasant 59-year-old male with known history of multiple medical problems presented to the emergency room complaining of right-sided chest pain and shortness of breath that started today. He states that his pain is mostly in the right infra-axillary area without any radiation to any place. It is sore to touch. He can not recall if he picked up any heavy objects. No history of any fall recently. No fever chills or rigors. No diaphoresis palpitations or presyncopal episodes. Temperature 97.9 pulse 83 respirations 20 blood pressure 124/89 with a pulse oximetry of 98% on room air Chronic medical problems include Parkinson's disease, hypercholesterolemia, PTSD, coronary artery disease status post stent placements, obstructive sleep apnea syndrome currently not using his CPAP machine Allergies: Coded Allergies: No Known Drug Allergies (Verified Allergy, Unknown, 07/10/17) No Known Food Allergies (Unverified Allergy, Unknown, 04/17/19) Home Meds Active Scripts Cyclobenzaprine HCl (Flexeril) 10 Mg Tab, 10 MG PO TID for muscle sstiffness, #14 TAB 0 Refills Prov:MELABIGAIL [employer]TER 08/21/24 Ibuprofen (Ibuprofen) 600 Mg Tablet, 600 MG PO Q6H PRN for PAIN, #15 TAB Prov:LEALABIGAIL DAVIS [employer]ACHINE [employer]TER 08/21/24 Lidocaine (Lidocaine) 4 % Adh..patch, 1 PATCH TP DAILY for 10 Days, #10 PATCH 0 Refills Prov:LEALANGELAABIGAIL BODY MAKER MACHINE SETTER 08/21/24 Lidocaine (Lidocaine Pain Relief) 4 % Adh..patch, 1 PATCH TP DAILY for 10 Days, #10 PATCH 0 Refills Prov:TRISTON OSORIO NP 08/10/24 Oseltamivir Phosphate (Tamiflu) 75 Mg Cap, 75 MG PO BID for 5 Days, #10 CAP Prov:ANDREINA DELA CRUZ MD 02/19/24 Oseltamivir Phosphate (Tamiflu) 75 Mg Cap, 75 MG PO BID, #7 CAP 0 Refills Prov:RODRIGO HEATH MD 09/20/23 Atorvastatin Calcium (LIPITOR) 40 Mg Tablet, 40 MG PO HS for 30 Days, #30 TAB 1 Refill Prov:RODRIGO HEATH MD 09/20/23 Aspirin (ASPIRIN 81 MG ECTAB) 81 Mg Ectab, 81 MG PO DAILY for 30 Days, #30 TAB.EC 1 Refill Prov:RODRIGO HEATH MD 09/20/23 Past Medical History Past Medical History: Other Additional Past Medical Hx: PARKINSONS, PTSD Surgical History: Appendectomy, Cholecystectomy Surgical History Other: HEART STENT Social History: Negative, Lives with family RN Note Reviewed/Agreed w/PFSH: Yes Review of System Dictation Constitutional: Negative for fever,chills, and weight loss Eyes: Negative for injury, pain,redness, and discharge ENT: Negative for injury,pain or swelling Cardiovascular: Positive for right-sided infra-axillary pain and tenderness denied, palpitations, and edema Respiratory: Negative for shortness of breath, cough, and wheezing, Abdomen/GI: Negative for abdominal pain, nausea, vomiting, diarrhea, and constipation Back: Negative for injury and pain : Negative for injury, bleeding and discharge MS/Extremity: Negative for injury and deformity Skin: Negative for rash, and discoloration Neuro: Negative for headache, weakness, numbness, tingling, and seizure Psych: Negative for suicide ideation, homicidal ideation, and hallucinations patient admits to severe anxiety Initial Vital Sign VS Vital Signs Date Time Temp Pulse Resp B/P (MAP) Pulse Ox O2 Delivery O2 Flow Rate FiO2 03/05/25 00:09 97.9 83 20 124/89 96 Room Air 03/05/25 01:50 0 21 Physical Exam Dictation General: awake, alert, NAD bradykinetic facies, intentional tremor Head/Face: Normocephalic, atraumatic Eyes: PERRL, EOMI, vision at baseline ENT: oral cavity clear, TMs clear, no signs of infection Neck: Trachea midline, supple, no nuchal rigidity Cardiovascular: RRR, normal S1/S2, No MRGs, no JVD tenderness in the right infra-axillary area. No erythema Respiratory: CTAB, no respiratory distress, No rales or wheezes Abdomen: Soft, non-tender, non-distended, normal bowel sounds, no guarding or rebound. Skin: Warm, dry, normal turgor, no rash MS/Extremity: Pulses equal, no cyanosis, neurovascular intact, FROM Neuro: COAx4, GCS 15, strength 5/5, CN 2-12 intact, normal cerebellar exam, normal gait, Psych: Normal behavior, mood, and affect normal Extremities-trace edema without any palpable cords, Homans sign is negative Results (Laboratory/Radiology) Laboratory/Radiology Laboratory Tests Test 03/05/25 00:20 03/05/25 00:38 White Blood Count 5.5 K/uL (4.8-10.8) Red Blood Count 4.85 MIL/uL (4.50-6.20) Hemoglobin 15.4 g/dL (14.0-18.0) Hematocrit 45.8 % (42-54) Mean Corpuscular Volume 94.4 fL (79-99) Mean Corpuscular Hemoglobin 31.8 pg (27.0-33.0) Mean Corpuscular Hemoglobin Concent 33.6 g/dL (32.0-36.0) Red Cell Distribution Width 12.8 % (11.0-15.5) Platelet Count 206 K/uL (130-400) Mean Platelet Volume 10.2 fL (7.5-10.5) Immature Granulocyte % (Auto) 0.2 % (0-1) Neutrophils (%) (Auto) 53.6 % (40.0-77.0) Lymphocytes (%) (Auto) 32.7 % (21.0-51.0) Monocytes (%) (Auto) 10.4 % (3.0-13.0) Eosinophils (%) (Auto) 2.4 % (0.0-8.0) Basophils (%) (Auto) 0.7 % (0.0-5.0) Neutrophils # (Auto) 2.9 K/uL (1.8-7.7) Lymphocytes # (Auto) 1.8 K/uL (1.0-4.8) Monocytes # (Auto) 0.6 K/uL (0.1-1.0) Eosinophils # (Auto) 0.13 K/uL (0.00-0.70) Basophils # (Auto) 0.04 K/uL (0.00-0.20) Absolute Immature Granulocyte (auto 0.01 K/uL (0-1) Nucleated Red Blood Cells 0.0 % (0.0-0.19) Sodium Level 141 mmol/L (136-145) Potassium Level 3.8 mmol/L (3.5-5.1) Chloride Level 103 mmol/L (101-111) Carbon Dioxide Level 32 mmol/L (21-32) Blood Urea Nitrogen 13 mg/dL (7-18) Creatinine 0.9 mg/dL (0.5-1.3) Glomerular Filtration Rate Calc 100 mL/min (>90) Random Glucose 94 mg/dL (70-105) Total Calcium 8.8 mg/dL (8.5-10.1) Total Creatine Kinase 65 U/L (21-232) # Troponin I High Sensitivity 71 ng/L (4-75) Urine Color YELLOW (YELLOW) Urine Appearance CLEAR (CLEAR) Urine pH 6.0 (5.0-8.0) Urine Specific [place] 1.028 (1.001-1.031) Urine Protein NEGATIVE mg/dL (NEGATIVE) Urine Glucose (UA) NEGATIVE mg/dL (NEGATIVE) Urine Ketones NEGATIVE mg/dL (NEGATIVE) Urine Occult Blood NEGATIVE (NEGATIVE) Urine Nitrate NEGATIVE (NEGATIVE) Urine Bilirubin NEGATIVE mg/dL (NEGATIVE) Urine Urobilinogen 2.0 mg/dL (0.2-1.0) H Urine Leukocyte Esterase NEGATIVE Tenzin/uL Labs Reviewed?: Yes EKG Comment: Twelve lead EKG done on 03/05/2025 at 12:12 a.m. showed a heart rate of 86, CT interval 157, QRS 104, QT/QTC 367/440 Impression normal sinus rhythm with a lot of artifact secondary to patient's intentional tremor from Parkinson's. I do not appreciate any acute ST-T elevations or deep ST depressions. EKG rhythm strip shows a normal sinus rhythm with no acute STT wave changes. Interpreted by ER MD Dr. Sol ED Course ED Course Orders Procedure Category Date Status Time Vital Signs Per CPOE 03/05/25 Transmitted Routine 00:10 Chest 1vw RAD 03/05/25 Taken 00:10 12 Lead Ekg Tracing- EKG 03/05/25 Complete Technical 00:10 Oxygen By Nc/Pulse Ox CPOE 03/05/25 Transmitted 00:10 Maintain Iv CPOE 03/05/25 Transmitted 00:10 Iv Insertion CPOE 03/05/25 Transmitted 00:10 Cardiac Monitoring CPOE 03/05/25 Transmitted 00:10 Pulse Oximetry With CPOE 03/05/25 Transmitted Vs And Prn 00:10 Cbc With Differential LAB 03/05/25 Complete 00:10 Activity: Br W/Brp CPOE 03/05/25 Transmitted With Assist 00:10 Creatine Kinase, Total LAB 03/05/25 Complete 00:10 Troponin I High LAB 03/05/25 Complete Sensitivity 00:10 Urinalysis Profile LAB 03/05/25 Complete 00:10 Basic Metabolic Panel LAB 03/05/25 Complete 00:10 0.9%Nacl 1000ml (Ns PHA 03/05/25 Complete 1000ml) 01:00 Nitroglycerin 0.4mg PHA 03/05/25 Complete Sl Tab (Nitrostat) 01:00 Morphine 4mg Syg PHA 03/05/25 Complete (Morphine 4mg Syg) 01:00 Ondansetron 4mg Inj PHA 03/05/25 Complete (Zofran 4mg Inj) 01:00 Aspirin 325mg Tab PHA 03/05/25 Complete (Aspirin 325mg Tab) 01:00 Current Medications Medications (Trade) Dose Ordered Sig/Kenzie Route PRN Reason Start Time Stop Time Status Last Admin Dose Admin Aspirin (Aspirin 325mg Tab) 325 mg ONCE ONCE PO 03/05/25 01:00 03/05/25 01:01 DC 03/05/25 01:28 Morphine Sulfate (morPHINE 4MG SYG) 4 mg ONCE ONCE IVP 03/05/25 01:00 03/05/25 01:01 DC 03/05/25 01:28 Nitroglycerin (Nitrostat) 0.4 mg Q5M PRN SL CHEST PAIN 03/05/25 01:00 03/05/25 02:22 DC Ondansetron HCl (zoFRAN 4MG INJ) 4 mg ONCE ONCE IVP 03/05/25 01:00 03/05/25 01:01 DC 03/05/25 01:28 Sodium Chloride 1,000 ml @ 125 mls/hr ONCE ONCE IV 03/05/25 01:00 03/05/25 02:22 DC 03/05/25 01:28 Vital Signs Date Time Temp Pulse Resp B/P (MAP) Pulse Ox O2 Delivery O2 Flow Rate FiO2 03/05/25 01:50 98.8 75 16 122/70 98 Room Air* 0 21 03/05/25 00:09 97.9 83 20 124/89 96 Room Air HEART Score Response (Comments) Value History: Low suspicion (0) 0 EKG: Normal 0 Age: 45-65yrs (+1) 1 Risk Factors: 1-2 risk factors (+1) 1 Initial Troponin: Normal limit (0) 0 HEART Score Risk: Mod Risk for MACE (4-6) Total 2 Medical Decision Making MDM Differential diagnosis: Muscular pain, rib fracture, herpetic zoster, thoracic neuropathy, pleurisy This is a very pleasant 59-year-old male with known history of multiple medical problems presented to the emergency room complaining of right-sided chest pain and shortness of breath that started today. He states that his pain is mostly in the right infra-axillary area without any radiation to any place. It is sore to touch. He can not recall if he picked up any heavy objects. No history of any fall recently. No fever chills or rigors. No diaphoresis palpitations or presyncopal episodes. Temperature 97.9 pulse 83 respirations 20 blood pressure 124/89 with a pulse oximetry of 98% on room air Chronic medical problems include Parkinson's disease, hypercholesterolemia, PTSD, coronary artery disease status post stent placements, obstructive sleep apnea syndrome currently not using his CPAP machine 1:30 a.m. labs reviewed CBC is with a normal limits BNP 7 is with a normal limits urinalysis is unremarkable. Troponins are 71. Chest x-ray no evidence of any acute infiltrate. I updated the patient and his spouse on all the labs and the atypical p resentation for cardiac disease and on re-evaluation pain was significantly improved. He will be discharged to home to follow up with his primary care physician Rationale: Tests considered and ordered secondary to shared decision making include: Previous outside records reviewed: Old ER visits. Risk of complication and/or morbidity or mortality of patient management: None Medications-Per medication reconciliation Need for hospitalization: Patient does not meet criteria for hospitalization. Need for emergency major/minor surgery: No There are no social concerns with this patient. Prescription drug management Prescriptions will include symptomatic care Patient's prior external medical records from other ER visits were reviewed by me as indicated. Prior testing and results from previous visits were reviewed. Prior tests were taken into account with medical decision making and resource utilization, independent historian/historians were used to obtain complete medical history. I independently interpreted the test that were performed, results were reviewed by me and considered findings on radiology if ordered. Medical management and examination interpretation discussions were had by me with other qualified healthcare professionals as indicated for the patient's care. Problem List Problem List: (1) Atypical chest pain (2) Parkinson disease (3) CAD (coronary artery disease) (4) HTN (hypertension) (5) PTSD (post-traumatic stress disorder) (6) PRABHAKAR (obstructive sleep apnea) (7) Hyperlipidemia DX & DISP Disposition: Discharge Departure Impression: Primary Impression: Atypical chest pain Additional Impressions: Parkinson disease, Essential hypertension, Hyperlipidemia, PRABHAKAR (obstructive sleep apnea), HTN (hypertension), CAD (coronary artery disease) Condition: Stable Additional Instructions: Patient and the caregiver have been informed of all the diagnostic tests and the imaging conducted during the today's visit to the emergency room and has verbalized understanding of the results I have personally reviewed and interpreted all diagnostic exams performed here in the ER today as well as the vital signs documented by the nursing staff. The patient is now being discharged to home and should follow up with the primary care physician or the specialist as directed by the ER staff. Referrals: KINGSTON SANTIAGO MD (PCP) MAREK SOL MD Mar 05, 2025 00:31
[2025-03-05 00:32] LABS: IMMATURE GRANULOCYTE ABSOLUTE 0.01 K/uL (0-1); NUCLEATED RED BLOOD CELLS 0.0 % (0.0-0.19); PLATELET COUNT (AUTO) 206 K/uL (130-400); RED BLOOD CELL COUNT(AUTO) 4.85 MIL/uL (4.50-6.20); RED CELL DISTRIBUTION WIDTH 12.8 % (11.0-15.5); WHITE BLOOD COUNT (AUTO) 5.5 K/uL (4.8-10.8)
[2025-03-05 00:40] LABS: CREATININE 0.9 mg/dL (0.5-1.3); GLOMERULAR FILTR. RATE CALC 100.0 mL/min (>90); GLUCOSE,RANDOM 94.0 mg/dL (70-105); SODIUM SERUM 141.0 mmol/L (136-145); UREA NITROGEN, BLOOD 13.0 mg/dL (7-18)
[2025-03-05 00:46] LABS: CREATINE KINASE, TOTAL 65.0 U/L (21-232)
[2025-03-05 00:48] LABS: APPEARANCE,URINE CLEAR (CLEAR); GLUCOSE, URINE (UA) NEGATIVE (NEGATIVE); LEUKOCYTE ESTERASE ,URINE NEGATIVE Leu/uL (NEGATIVE); NITRATE,URINE NEGATIVE (NEGATIVE); OCCULT BLOOD,URINE NEGATIVE (NEGATIVE)
[2025-03-05] MEDS ORDERED: NITROGLYCERIN 0.4 MG SL TAB SL PRN (01:00)
[2025-03-05 01:01] LABS: ADD UA MICROSCOPIC NO
[2025-03-05] MEDS: ASPIRIN 325MG TAB PO ONE (01:28)
[2025-03-05] MEDS: 0.9%NACL 1000ML 1,000 ML IV ONE (01:28)
[2025-03-05 01:50] VITALS: BP 122/70; PULSE 75; RESP 16; TEMP 98.8; O2SAT 98
--- NOTE | 2025-03-05 03:45 | HMCIMG ---
EXAM: CR Chest, 1 View. CLINICAL HISTORY: CHEST PAIN COMPARISON: 01/27/25 FINDINGS: LUNGS: The lungs show no infiltrate or other acute finding. PLEURAL SPACES: No evidence of pleural effusion or pneumothorax. MEDIASTINUM: Cardiac size and mediastinal contours within normal limits. BONES: No acute osseous abnormality. IMPRESSION: No acute cardiopulmonary pathology is evident. No interval change. /[place]
== END 2025-03-05 02:22 | disposition home or self-care (01) ==
LOC: EDH 00:08
DX: R07.89 Other chest pain (principal); G20.A1 Parkinson's disease without dyskinesia, without mention of fluctuations; I10 Essential (primary) hypertension; E78.5 Hyperlipidemia, unspecified; G47.33 Obstructive sleep apnea (adult) (pediatric); I25.10 Atherosclerotic heart disease of native coronary artery without angina pectoris; Z79.82 Long term (current) use of aspirin; Z90.49 Acquired absence of other specified parts of digestive tract; Z95.5 Presence of coronary angioplasty implant and graft
CPT/HCPCS: 99285; 96374; 71045; 96375; 82550; 84484; 80048; 85025; 81003; 36415; 93005; J7030; J2405; J2270